=== PATIENT | male | born 1965 | race American Indian/Alaskan Native ===

== ENCOUNTER 2017-06-08 13:48 | Inpatient (IN) | payer OTHER ==
[2017-06-08] MEDS ORDERED: Sodium Chloride 0.9% 1,000 ML IV ONE ×4 (14:11→17:09)
[2017-06-08] MEDS ORDERED: Magnesium Sulfate/Water 2 GM in Premix Bag 1 BAG IV ONE ×2 (14:23→18:02)
[2017-06-08] MEDS ORDERED: Calcium Gluconate 10% 1 GM/10 ML SDV IVPUSH ONE (15:18)
[2017-06-08] MEDS ORDERED: Potassium Chloride 10% 20 MEQ/15 ML Soln 30 ML UD Cup PO ONE (16:25)
--- NOTE | 2017-06-08 16:28 | EDM.PDOC ---
ED HPI GENERAL MEDICAL PROBLEM - General Chief Complaint: Neurological Problem Stated Complaint: [facility] Time Seen by Provider: 06/08/17 14:01 Source of Information: Reports: Patient History Limitations: Reports: Intoxication - History of Present Illness INITIAL COMMENTS - FREE TEXT/NARRATIVE: The patient is a 51-year-old male with a history of alcoholism who comes in after an episode of syncope at home. According to patient's family, the patient was in bed. It appears that he try to get out of bed but passed out. Patient's family thought that he had hit his head on a bedroom wall when he try to get up to go to the bathroom. They state that he passed out for several seconds maybe even a couple of minutes before coming to. He was breathing throughout. They describe color change. He started to look dusky and blue. He seemed stiff but did not have any shaking. EMS was called and they transported the patient here. The patient does not recall the event. He denies feeling ill. States that he does not have a headache. Denies recent illness. States that he did drink several beers this morning that he has been drinking lately. He isn't really able to provide any further history. His family doesn't seem to be aware of him being ill recently either but it is not clear whether they've been with him much these last few days. Treatments RUNNER ON: Reports: Oxygen Headache Pain Score (Numeric/FACES): 7 - Related Data Allergies Allergy/AdvReac Type Severity Reaction Status Date / Time No Known Allergies Allergy Verified 06/08/17 13:56 Home Meds: Home Meds Aspirin [Ecotrin] 81 mg PO DAILY 06/08/17 [History] Past Medical History HEENT History: Reports: Other (See Below) Other HEENT History: blurry vision for past couple months Cardiovascular History: Reports: Hypertension Gastrointestinal History: Reports: GI Bleed Genitourinary History: Reports: Acute Renal Failure Musculoskeletal History: Reports: Arthritis, Gout Other Musculoskeletal History: "joint problems" Neurological History: Reports: Head Trauma Psychiatric History: Reports: Addiction Hematologic History: Reports: Anemia - Past Surgical History Musculoskeletal Surgical History: Reports: None Social & Family History - Family History Family Medical History: Noncontributory Other Dermatologic Family History: pt slightly confused, not sure of family hx - Tobacco Use Smoking Status *Q: Current Every Day Smoker Years of Tobacco use: 30 Packs/Tins Daily: 0.4 Second Hand Smoke Exposure: No - Alcohol Use Days Per Week of Alcohol Use: 1 Number of Drinks Per Day: 8 Total Drinks Per Week: 8 - Recreational Drug Use Recreational Drug Use: No Drug Use in Last 12 Months: Yes Recreational Drug Type: Reports: Benzodiazepines, Marijuana/Hashish, Other (see below) ED ROS GENERAL - Review of Systems Review Of Systems: See Below Constitutional: Reports: Malaise, Weakness, Fatigue HEENT: Reports: No Symptoms Respiratory: Reports: No Symptoms Cardiovascular: Reports: No Symptoms Endocrine: Reports: Fatigue GI/Abdominal: Reports: Diarrhea : Reports: No Symptoms Musculoskeletal: Reports: No Symptoms Skin: Reports: No Symptoms Neurological: Reports: No Symptoms Psychiatric: Reports: No Symptoms Hematologic/Lymphatic: Reports: No Symptoms Immunologic: Reports: No Symptoms - Physical Exam Exam: See Below Exam Limited By: No Limitations General Appearance: Alert, WD/WN, No Apparent Distress Eye Exam: Bilateral Eye: EOMI, PERRL Ears: Normal External Exam Nose: Normal Inspection Throat/Mouth: Normal Inspection, Normal Voice Head Exam: Atraumatic, Normocephalic Neck: Normal Inspection, Supple, Non-Tender, Full Range of Motion Respiratory/Chest: No Respiratory Distress, Lungs Clear, Normal Breath Sounds Cardiovascular: Regular Rate, Rhythm, No Edema, Tachycardia GI/Abdominal: Soft, Non-Tender, No Distention Neuro Exam (Abbreviated): Alert, Oriented, No Motor/Sensory Deficits Back Exam: Normal Inspection Extremities: Other (LLE is mildly enlarged compared to RLE, mild pretibial erythema, no warmth or tenderness) Psychiatric: Normal Affect, Normal Mood Skin Exam: Warm, Dry, Intact, Normal Color Course - Vital Signs Last Recorded V/S: Last Vital Signs Temp 35.7 C 06/08/17 13:57 Pulse 130 H 06/08/17 13:57 Resp 17 06/08/17 13:57 BP 100/78 06/08/17 13:57 Pulse Ox 98 06/08/17 13:57 - Orders/Labs/Meds Orders: Active Orders 24 hr Category Date Time Status EKG 12 Lead [EKG Documentation Completion] [RC] STAT Care 06/08/17 14:11 Active Chest 1V Frontal [CR] Stat Exams 06/08/17 14:11 Taken Head wo Cont [CT] Stat Exams 06/08/17 14:11 Taken VL Duplex Lwr Ext Veins Ltd Lt [US] Stat Exams 06/08/17 14:19 Taken C DIFFICILE BY PCR W/NAP1 [MOLEC] Stat Lab 06/08/17 16:09 Received CULTURE STOOL + SHIGATOX [RM] Stat Lab 06/08/17 16:09 Received Potassium Chloride [KCl 10 MEQ in Water 100 ML] 10 meq Med 06/08/17 15:15 Active Premix Bag 1 bag IV Q1H Sodium Chloride 0.9% [Normal Saline] 1,000 ml Med 06/08/17 17:09 Active IV ONETIME Medication Orders Potassium Chloride 10 meq/ (Premix) 100 mls @ 100 mls/hr IV Q1H MARLENI Stop: 06/08/17 19:14 Last Admin: 06/08/17 16:34 Dose: 100 mls/hr Sodium Chloride (Normal Saline) 1,000 mls @ 1,000 mls/hr IV ONETIME ONE Stop: 06/08/17 18:08 Last Admin: 06/08/17 17:12 Dose: 1,000 mls/hr Labs: Laboratory Tests 06/08/17 06/08/17 06/08/17 Range/Units 14:00 14:00 14:00 WBC 9.64 H (4.23-9.07) K/mm3 RBC 3.03 L (4.63-6.08) M/mm3 Hgb 10.7 L (13.7-17.5) gm/L Hct 30.0 L (40.1-51.0) % MCV 99.0 H (79.0-92.2) fl MCH 35.3 H (25.7-32.2) pg MCHC 35.7 H (32.2-35.5) g/dl RDW Std Deviation 49.6 H (35.1-43.9) fL Plt Count 220 (163-337) K/mm3 MPV 11.1 (9.4-12.3) fl Neut % (Auto) 77.6 H (34.0-67.9) % Lymph % (Auto) 12.0 L (21.8-53.1) % [place] % (Auto) 9.1 (5.3-12.2) % Eos % (Auto) 0.3 L (0.8-7.0) Baso % (Auto) 0.4 (0.1-1.2) % Neut # (Auto) 7.47 H (1.78-5.38) K/mm3 Lymph # (Auto) 1.16 L (1.32-3.57) K/mm3 [place] # (Auto) 0.88 H (0.30-0.82) K/mm3 Eos # (Auto) 0.03 L (0.04-0.54) K/mm3 Baso # (Auto) 0.04 (0.01-0.08) K/mm3 PT 13.3 H (8.0-13.0) SECONDS INR 1.21 Sodium 129 L (136-145) mEq/L Potassium 2.2 L* (3.5-5.1) mEq/L Chloride 89 L (98-107) mEq/L Carbon Dioxide 23 (21-32) mEq/L Anion Gap 19.2 H (5-15) BUN 12 (7-18) mg/dL Creatinine 1.3 (0.7-1.3) mg/dL Est Cr Clr Drug Dosing 63.97 mL/min Estimated GFR (MDRD) 58 (>60) mL/min BUN/Creatinine Ratio 9.2 L (14-18) Glucose 154 H (74-106) mg/dL Calcium 6.2 L (8.5-10.1) mg/dL Magnesium 0.5 L (1.8-2.4) mg/dl Total Bilirubin 2.2 H (0.2-1.0) mg/dL AST 56 H (15-37) U/L ALT 20 (16-63) U/L Alkaline Phosphatase 219 H (46-116) U/L Troponin I < 0.017 (0.00-0.056) ng/mL Total Protein 6.8 (6.4-8.2) g/dl Albumin 1.9 L (3.4-5.0) g/dl Globulin 4.9 gm/dL Albumin/Globulin Ratio 0.4 L (1-2) Lipase 373 (73-393) U/L Urine Color (Yellow) Urine Appearance (Clear) Urine pH (5.0-8.0) Ur Specific [place] (1.005-1.030) Urine Protein (Negative) Urine Glucose (UA) (Negative) Urine Ketones (Negative) Urine Occult Blood (Negative) Urine Nitrite (Negative) Urine Bilirubin (Negative) Urine Urobilinogen (0.2-1.0) Ur Leukocyte Esterase (Negative) Urine RBC (0-5) /hpf Urine WBC (0-5) /hpf Ur Epithelial Cells (0-5) /hpf Urine Bacteria (FEW) /hpf Urine Mucus (FEW) /hpf Urine Opiates Screen (NEGATIVE) Ur Buprenorphine Scrn (NEGATIVE) Ur Oxycodone Screen (NEGATIVE) Urine Methadone Screen (NEGATIVE) Ur Propoxyphene Screen (NEGATIVE) Ur Barbiturates Screen (NEGATIVE) Ur Tricyclics Screen (NEGATIVE) Ur Phencyclidine Scrn (NEGATIVE) Ur Amphetamine Screen (NEGATIVE) U Methamphetamines Scrn (NEGATIVE) U Benzodiazepines Scrn (NEGATIVE) U Cocaine Metab Screen (NEGATIVE) U Marijuana (THC) Screen (NEGATIVE) Ethyl Alcohol 0.17 (0.00) gm% Blood Type Gel Antibody Screen 06/08/17 06/08/17 06/08/17 Range/Units 14:00 15:32 16:28 WBC (4.23-9.07) K/mm3 RBC (4.63-6.08) M/mm3 Hgb (13.7-17.5) gm/L Hct (40.1-51.0) % MCV (79.0-92.2) fl MCH (25.7-32.2) pg MCHC (32.2-35.5) g/dl RDW Std Deviation (35.1-43.9) fL Plt Count (163-337) K/mm3 MPV (9.4-12.3) fl Neut % (Auto) (34.0-67.9) % Lymph % (Auto) (21.8-53.1) % [place] % (Auto) (5.3-12.2) % Eos % (Auto) (0.8-7.0) Baso % (Auto) (0.1-1.2) % Neut # (Auto) (1.78-5.38) K/mm3 Lymph # (Auto) (1.32-3.57) K/mm3 [place] # (Auto) (0.30-0.82) K/mm3 Eos # (Auto) (0.04-0.54) K/mm3 Baso # (Auto) (0.01-0.08) K/mm3 PT (8.0-13.0) SECONDS INR Sodium 129 L (136-145) mEq/L Potassium 2.6 L (3.5-5.1) mEq/L Chloride 91 L (98-107) mEq/L Carbon Dioxide 24 (21-32) mEq/L Anion Gap 16.6 H (5-15) BUN 12 (7-18) mg/dL Creatinine 1.2 (0.7-1.3) mg/dL Est Cr Clr Drug Dosing 69.30 mL/min Estimated GFR (MDRD) > 60 (>60) mL/min BUN/Creatinine Ratio 10.0 L (14-18) Glucose 142 H (74-106) mg/dL Calcium 6.1 L (8.5-10.1) mg/dL Magnesium 0.7 L (1.8-2.4) mg/dl Total Bilirubin 2.0 H (0.2-1.0) mg/dL AST 52 H (15-37) U/L ALT 19 (16-63) U/L Alkaline Phosphatase 201 H (46-116) U/L Troponin I (0.00-0.056) ng/mL Total Protein 6.3 L (6.4-8.2) g/dl Albumin 1.7 L (3.4-5.0) g/dl Globulin 4.6 gm/dL Albumin/Globulin Ratio 0.4 L (1-2) Lipase (73-393) U/L Urine Color [place] H (Yellow) Urine Appearance Clear (Clear) Urine pH 6.0 (5.0-8.0) Ur Specific [place] 1.010 (1.005-1.030) Urine Protein 1+ H (Negative) Urine Glucose (UA) Negative (Negative) Urine Ketones Negative (Negative) Urine Occult Blood Negative (Negative) Urine Nitrite Positive H (Negative) Urine Bilirubin 2+ H (Negative) Urine Urobilinogen >=8.0 H (0.2-1.0) Ur Leukocyte Esterase Negative (Negative) Urine RBC Not seen (0-5) /hpf Urine WBC 0-5 (0-5) /hpf Ur Epithelial Cells 0-5 (0-5) /hpf Urine Bacteria Rare (FEW) /hpf Urine Mucus Not seen (FEW) /hpf Urine Opiates Screen (NEGATIVE) Ur Buprenorphine Scrn (NEGATIVE) Ur Oxycodone Screen (NEGATIVE) Urine Methadone Screen (NEGATIVE) Ur Propoxyphene Screen (NEGATIVE) Ur Barbiturates Screen (NEGATIVE) Ur Tricyclics Screen (NEGATIVE) Ur Phencyclidine Scrn (NEGATIVE) Ur Amphetamine Screen (NEGATIVE) U Methamphetamines Scrn (NEGATIVE) U Benzodiazepines Scrn (NEGATIVE) U Cocaine Metab Screen (NEGATIVE) U Marijuana (THC) Screen (NEGATIVE) Ethyl Alcohol (0.00) gm% Blood Type O POSITIVE Gel Antibody Screen Negative 06/08/17 Range/Units 16:28 WBC (4.23-9.07) K/mm3 RBC (4.63-6.08) M/mm3 Hgb (13.7-17.5) gm/L Hct (40.1-51.0) % MCV (79.0-92.2) fl MCH (25.7-32.2) pg MCHC (32.2-35.5) g/dl RDW Std Deviation (35.1-43.9) fL Plt Count (163-337) K/mm3 MPV (9.4-12.3) fl Neut % (Auto) (34.0-67.9) % Lymph % (Auto) (21.8-53.1) % [place] % (Auto) (5.3-12.2) % Eos % (Auto) (0.8-7.0) Baso % (Auto) (0.1-1.2) % Neut # (Auto) (1.78-5.38) K/mm3 Lymph # (Auto) (1.32-3.57) K/mm3 [place] # (Auto) (0.30-0.82) K/mm3 Eos # (Auto) (0.04-0.54) K/mm3 Baso # (Auto) (0.01-0.08) K/mm3 PT (8.0-13.0) SECONDS INR Sodium (136-145) mEq/L Potassium (3.5-5.1) mEq/L Chloride (98-107) mEq/L Carbon Dioxide (21-32) mEq/L Anion Gap (5-15) BUN (7-18) mg/dL Creatinine (0.7-1.3) mg/dL Est Cr Clr Drug Dosing mL/min Estimated GFR (MDRD) (>60) mL/min BUN/Creatinine Ratio (14-18) Glucose (74-106) mg/dL Calcium (8.5-10.1) mg/dL Magnesium (1.8-2.4) mg/dl Total Bilirubin (0.2-1.0) mg/dL AST (15-37) U/L ALT (16-63) U/L Alkaline Phosphatase (46-116) U/L Troponin I (0.00-0.056) ng/mL Total Protein (6.4-8.2) g/dl Albumin (3.4-5.0) g/dl Globulin gm/dL Albumin/Globulin Ratio (1-2) Lipase (73-393) U/L Urine Color (Yellow) Urine Appearance (Clear) Urine pH (5.0-8.0) Ur Specific [place] (1.005-1.030) Urine Protein (Negative) Urine Glucose (UA) (Negative) Urine Ketones (Negative) Urine Occult Blood (Negative) Urine Nitrite (Negative) Urine Bilirubin (Negative) Urine Urobilinogen (0.2-1.0) Ur Leukocyte Esterase (Negative) Urine RBC (0-5) /hpf Urine WBC (0-5) /hpf Ur Epithelial Cells (0-5) /hpf Urine Bacteria (FEW) /hpf Urine Mucus (FEW) /hpf Urine Opiates Screen Negative (NEGATIVE) Ur Buprenorphine Scrn Negative (NEGATIVE) Ur Oxycodone Screen Negative (NEGATIVE) Urine Methadone Screen Negative (NEGATIVE) Ur Propoxyphene Screen Negative (NEGATIVE) Ur Barbiturates Screen Negative (NEGATIVE) Ur Tricyclics Screen Negative (NEGATIVE) Ur Phencyclidine Scrn Negative (NEGATIVE) Ur Amphetamine Screen Negative (NEGATIVE) U Methamphetamines Scrn Negative (NEGATIVE) U Benzodiazepines Scrn Negative (NEGATIVE) U Cocaine Metab Screen Negative (NEGATIVE) U Marijuana (THC) Screen Presumptive positive H (NEGATIVE) Ethyl Alcohol (0.00) gm% Blood Type Gel Antibody Screen Meds: Medications Generic Name Dose Route Start Last Admin Trade Name Freq PRN Reason Stop Dose Admin Potassium Chloride 10 meq/ 100 mls @ 100 mls/hr 06/08/17 15:15 06/08/17 16:34 Premix IV 06/08/17 19:14 100 mls/hr Q1H MARLENI Administration Sodium Chloride 1,000 mls @ 1,000 mls/hr 06/08/17 17:09 06/08/17 17:12 Normal Saline IV 06/08/17 18:08 1,000 mls/hr ONETIME ONE Administration Discontinued Medications Generic Name Dose Route Start Last Admin Trade Name Kourtney PRN Reason Stop Dose Admin Calcium Gluconate 1 gm 06/08/17 15:18 06/08/17 15:35 Calcium Gluconate IVPUSH 06/08/17 15:19 1 gm ONETIME ONE Administration Sodium Chloride 1,000 mls @ 1,000 mls/hr 06/08/17 14:11 06/08/17 14:23 Normal Saline IV 06/08/17 15:10 1,000 mls/hr ONETIME ONE Administration Magnesium Sulfate 2 gm/ Premix 50 mls @ 25 mls/hr 06/08/17 14:23 06/08/17 14: 44 IV 06/08/17 16:22 25 mls/hr ONETIME ONE Administration Sodium Chloride 1,000 mls @ 1,000 mls/hr 06/08/17 15:52 06/08/17 16:17 Normal Saline IV 06/08/17 16:51 1,000 mls/hr ONETIME ONE Administration Sodium Chloride 1,000 mls @ 1,000 mls/hr 06/08/17 16:27 06/08/17 16:50 Normal Saline IV 06/08/17 17:26 1,000 mls/hr ONETIME ONE Administration Potassium Chloride 40 meq 06/08/17 16:25 06/08/17 17:05 Potassium Chloride PO 06/08/17 16:26 Not Given ONETIME ONE Potassium Chloride 40 meq 06/08/17 16:55 06/08/17 17:01 Klor-Con M20 PO 06/08/17 16:56 40 meq ONETIME ONE Administration - Re-Assessments/Exams Free Text/Narrative Re-Assessment/Exam: 06/08/17 16:59 CT head shows no acute abnormality. EKG shows sinus tachycardia with a prolonged QTc interval at 550. No evidence of acute ischemia. Chest x-ray shows normal cardiac silhouette, mildly elevated left hemidiaphragm, no infiltrate. Patient is markedly tachycardic. His blood pressure is also on the low side with systolics mostly in the 90s. He is also orthostatic and gets very tachycardic when he sits up. Fluids ordered. Lab results showed an initial potassium of 2.2 and magnesium 0.5. Magnesium and potassium ordered but also sent new sample to lab to confirm these electrolyte abnormalities. Repeat testing did confirm these abnormalities. Meanwhile, nursing staff informed me that the patient was having a large amount of diarrhea. Diarrhea is guaiac negative. I suspect this is the source of his orthostatic hypotension and tachycardia and electrolyte abnormalities. No fever here. Lower extremity venous doppler of the LLE is negative for DVT. Discussed with Dr. Bustamante who agrees to admit the patient for further care. 06/08/17 17:01 06/08/17 17:37 Departure - Departure Time of Disposition: 16:37 Disposition: Admitted As Inpatient 65 Clinical Impression: Hypokalemia due to loss of potassium, Hypomagnesemia, Substance abuse, Syncope and collapse, Dehydration, moderate Diarrhea Qualifiers: Diarrhea type: unspecified type Qualified Code(s): R19.7 - Diarrhea, unspecified Hypotension Qualifiers: Hypotension type: unspecified hypotension type Qualified Code(s): I95.9 - Hypotension, unspecified Alcohol intoxication Qualifiers: Complication of substance-induced condition: uncomplicated Qualified Code(s): F10.920 - Alcohol use, unspecified with intoxication, uncomplicated Altered mental status Qualifiers: Altered mental status type: disorientation Qualified Code(s): R41.0 - Disorientation, unspecified - Discharge Information - My Orders Last 24 Hours: My Active Orders 06/08/17 14:11 EKG 12 Lead [EKG Documentation Completion] [RC] STAT Chest 1V Frontal [CR] Stat Head wo Cont [CT] Stat 06/08/17 14:19 VL Duplex Lwr Ext Veins Ltd Lt [US] Stat 06/08/17 15:15 Potassium Chloride [KCl 10 MEQ in Water 100 ML] 10 meq Premix Bag 1 bag IV Q1H 06/08/17 16:09 C DIFFICILE BY PCR W/NAP1 [MOLEC] Stat CULTURE STOOL + SHIGATOX [RM] Stat 06/08/17 17:09 Sodium Chloride 0.9% [Normal Saline] 1,000 ml IV ONETIME - Assessment/Plan Last 24 Hours: My Active Orders 06/08/17 14:11 EKG 12 Lead [EKG Documentation Completion] [RC] STAT Chest 1V Frontal [CR] Stat Head wo Cont [CT] Stat 06/08/17 14:19 VL Duplex Lwr Ext Veins Ltd Lt [US] Stat 06/08/17 15:15 Potassium Chloride [KCl 10 MEQ in Water 100 ML] 10 meq Premix Bag 1 bag IV Q1H 06/08/17 16:09 C DIFFICILE BY PCR W/NAP1 [MOLEC] Stat CULTURE STOOL + SHIGATOX [] Stat 06/08/17 17:09 Sodium Chloride 0.9% [Normal Saline] 1,000 ml IV ONETIME
[2017-06-08] MEDS: Potassium Chloride 10 MEQ in Premix Bag 1 BAG IV SCH ×4 (16:34→19:56)
[2017-06-08] MEDS ORDERED: Potassium Chloride 20 MEQ Tab.ER PO ONE (16:55)
[2017-06-08] MEDS ORDERED: LORazepam 2 MG/ML MDV IVPUSH PRN (18:06)
[2017-06-08] MEDS ORDERED: Haloperidol Lactate 5 MG/ML SDV IVPUSH PRN (18:14)
--- NOTE | 2017-06-08 18:17 | PCM.HP ---
H&P History of Present Illness - General Date of Service: 06/08/17 Admit Problem/Dx: Admission Diagnosis/Problem Admission Diagnosis/Problem Hypotension Source of Information: Provider History Limitations: Reports: No Limitations - History of Present Illness Initial Comments - Free Text/Narative: 51 year old male unable to provide history; the ED physician interviewed family members for the history as documented. He reportedly "passed out", has had decrease appetite. May or may not have been exposed to sick contacts. He was reportedly out of it for a few seconds without urine or stool incontinence. His color was reportedly blue. He was rigid without extremity movements. Has no know history of seizure disorder including ETOH related seizures. Ontiveros s electrolyte abnormalities (k, 2.2; Na, 122) and ETOH 0.17. There has been no SOB, CP, orthopnea, PND, palpitations; however he has had loose stool without change in color. Onset of Symptoms: Reports: Sudden Symptom Onset Date: 06/08/17 Duration of Symptoms: Reports: Hour(s):, Getting Worse Location: Reports: Generalized Severity: Moderate Improves with: Reports: Medication Worsens with: Reports: None Associated Symptoms: Reports: Loss of Appetite, Weakness Headache Pain Score (Numeric/FACES): 7 - Related Data Allergies/Adverse Reactions: Allergies Allergy/AdvReac Type Severity Reaction Status Date / Time No Known Allergies Allergy Verified 06/08/17 13:56 Home Medications: Home Meds Aspirin [Ecotrin] 81 mg PO DAILY 06/08/17 [History] Past Medical History HEENT History: Reports: Other (See Below) Other HEENT History: blurry vision for past couple months Cardiovascular History: Reports: Hypertension Gastrointestinal History: Reports: GI Bleed Genitourinary History: Reports: Acute Renal Failure Musculoskeletal History: Reports: Arthritis, Gout Other Musculoskeletal History: "joint problems" Neurological History: Reports: Head Trauma Psychiatric History: Reports: Addiction Hematologic History: Reports: Anemia - Past Surgical History Musculoskeletal Surgical History: Reports: None Social & Family History - Family History Family Medical History: Noncontributory Other Dermatologic Family History: pt slightly confused, not sure of family hx - Tobacco Use Smoking Status *Q: Current Every Day Smoker Years of Tobacco use: 30 Packs/Tins Daily: 0.4 Second Hand Smoke Exposure: No - Alcohol Use Days Per Week of Alcohol Use: 1 Number of Drinks Per Day: 8 Total Drinks Per Week: 8 - Recreational Drug Use Recreational Drug Use: No Drug Use in Last 12 Months: Yes Recreational Drug Type: Reports: Benzodiazepines, Marijuana/Hashish, Other (see below) H&P Review of Systems - Review of Systems: Review Of Systems: See Below General: Reports: Weakness, Fatigue HEENT: Reports: No Symptoms Pulmonary: Reports: No Symptoms Cardiovascular: Reports: Palpitations, Lightheadedness Gastrointestinal: Reports: Decreased Appetite Genitourinary: Reports: No Symptoms Musculoskeletal: Reports: No Symptoms Skin: Reports: No Symptoms Psychiatric: Reports: No Symptoms Neurological: Reports: Weakness Hematologic/Lymphatic: Reports: No Symptoms Immunologic: Reports: No Symptoms Exam - Exam Exam: See Below - Vital Signs Vital Signs: Last Vital Signs Temp 36.8 C 06/08/17 17:47 Pulse 130 H 06/08/17 13:57 Resp 18 06/08/17 17:47 BP 105/85 06/08/17 17:47 Pulse Ox 97 06/08/17 17:47 Weight: 77.655 kg - Exam Quality Assessment: Supplemental Oxygen, Urinary Catheter, DVT Prophylaxis General: Lethargic HEENT: Conjunctiva Clear, Nares Patent, Normal Nasal Septum, Pupils Equal, Pupils Reactive Neck: Supple, Trachea Midline Lungs: Normal Respiratory Effort, Decreased Breath Sounds Cardiovascular: Regular Rate, Tachycardia GI/Abdominal Exam: Normal Bowel Sounds, Soft, Non-Tender, No Organomegaly, No Distention (Male) Exam: Deferred Rectal (Males) Exam: Deferred Back Exam: Normal Inspection Extremities: Normal Inspection Skin: Warm Neurological: Cranial Nerves Intact Neuro Extensive - Mental Status: Inattentive Neuro Extensive - Motor, Sensory, Reflexes: CN II-XII Intact Psychiatric: Other (lethargic) - Patient Data Result Diagrams: 06/09/17 11:04 06/09/17 06:41 *Q Meaningful Use (ADM) - VTE *Q VTE Criteria *Q: - Stroke *Q Stroke Criteria *Q: - AMI *Q AMI Criteria *Q: - Problem List (1) Alcohol intoxication SNOMED Code(s): 84614142 ICD Code: F10.929 - ALCOHOL USE, UNSPECIFIED WITH INTOXICATION, UNSPECIFIED Status: Acute Current Visit: Yes Qualifiers: Complication of substance-induced condition: uncomplicated Qualified Code(s ): F10.920 - Alcohol use, unspecified with intoxication, uncomplicated (2) Altered mental status SNOMED Code(s): 001795649 ICD Code: R41.82 - ALTERED MENTAL STATUS, UNSPECIFIED Status: Acute Current Visit: Yes Qualifiers: Altered mental status type: disorientation Qualified Code(s): R41.0 - Disorientation, unspecified (3) Dehydration, moderate SNOMED Code(s): 9351838736977 ICD Code: E86.0 - DEHYDRATION Status: Acute Current Visit: Yes (4) Diarrhea SNOMED Code(s): 71291274 ICD Code: R19.7 - DIARRHEA, UNSPECIFIED Status: Acute Current Visit: Yes Qualifiers: Diarrhea type: unspecified type Qualified Code(s): R19.7 - Diarrhea, unspecified (5) Hypokalemia due to loss of potassium SNOMED Code(s): 95949345 ICD Code: E87.6 - HYPOKALEMIA Status: Acute Current Visit: Yes (6) Hypotension SNOMED Code(s): 45914638 ICD Code: I95.9 - HYPOTENSION, UNSPECIFIED Status: Acute Current Visit: Yes Qualifiers: Hypotension type: unspecified hypotension type Qualified Code(s): I95.9 - Hypotension, unspecified (7) Syncope and collapse SNOMED Code(s): 017439291 ICD Code: R55 - SYNCOPE AND COLLAPSE Status: Acute Current Visit: Yes Problem List Initiated/Reviewed/Updated: Yes Orders Last 24hrs: Active Orders 24 hr Category Date Time Status Patient Status [ADT] Routine ADT 06/08/17 17:49 Active Aspiration Precautions [RC] ASDIRECTED Care 06/08/17 17:46 Ordered Bedrest Bathroom Privileges [RC] ASDIRECTED Care 06/08/17 17:42 Ordered CIWAA Assessment [RC] Q4H Care 06/08/17 18:05 Ordered HOB [Head of Bed Elevation] [RC] ASDIRECTED Care 06/08/17 17:46 Ordered Vital Signs [RC] PER UNIT ROUTINE Care 06/08/17 17:42 Ordered Consult to Occupational Therapy [OT Evaluation and Cons 06/10/17 11:00 Ordered Treatment] [CONS] Routine Consult to Physical Therapy [PT Evaluation and Cons 06/10/17 11:00 Ordered Treatment] [CONS] Routine Consult to Certified Alcohol And Drug Counselor [CONS] Routine Cons 06/10/17 09:00 Ordered NPO [Nothing Per Oral Diet] [DIET] Diet 06/09/17 Breakfast Ordered CXR [Chest 2V] [CR] Routine Exams 06/10/17 06:00 Ordered BASIC METABOLIC PANEL,BMP [CHEM] DAILY Lab 06/09/17 05:00 Ordered BASIC METABOLIC PANEL,BMP [CHEM] DAILY Lab 06/10/17 05:00 Ordered BASIC METABOLIC PANEL,BMP [CHEM] DAILY Lab 06/11/17 05:00 Ordered BASIC METABOLIC PANEL,BMP [CHEM] DAILY Lab 06/12/17 05:00 Ordered BASIC METABOLIC PANEL,BMP [CHEM] DAILY Lab 06/13/17 05:00 Ordered BASIC METABOLIC PANEL,BMP [CHEM] DAILY Lab 06/14/17 05:00 Ordered CBC WITH AUTO DIFF [HEME] DAILY Lab 06/09/17 05:00 Ordered CBC WITH AUTO DIFF [HEME] DAILY Lab 06/10/17 05:00 Ordered CBC WITH AUTO DIFF [HEME] DAILY Lab 06/11/17 05:00 Ordered CBC WITH AUTO DIFF [HEME] DAILY Lab 06/12/17 05:00 Ordered CBC WITH AUTO DIFF [HEME] DAILY Lab 06/13/17 05:00 Ordered CBC WITH AUTO DIFF [HEME] DAILY Lab 06/14/17 05:00 Ordered ETHANOL BLOOD MEDICAL [CHEM] Routine Lab 06/09/17 05:00 Ordered FOLIC ACID [CHEM] Routine Lab 06/09/17 05:00 Ordered GLYCOSYLATED HEMOGLOBIN,HGBA1C [CHEM] Routine Lab 06/09/17 05:00 Ordered MAGNESIUM [CHEM] DAILY Lab 06/09/17 05:00 Ordered MAGNESIUM [CHEM] DAILY Lab 06/10/17 05:00 Ordered MAGNESIUM [CHEM] DAILY Lab 06/11/17 05:00 Ordered MAGNESIUM [CHEM] DAILY Lab 06/12/17 05:00 Ordered MAGNESIUM [CHEM] DAILY Lab 06/13/17 05:00 Ordered MAGNESIUM [CHEM] DAILY Lab 06/14/17 05:00 Ordered TROPONIN I [CHEM] Routine Lab 06/09/17 05:00 Ordered TSH [CHEM] Routine Lab 06/09/17 05:00 Ordered VITAMIN B12 [CHEM] Routine Lab 06/09/17 05:00 Ordered VITAMIN D 25-HYROXY (D2, D3) [REF] Routine Lab 06/09/17 05:00 Ordered Folic Acid Med 06/09/17 09:00 Ordered 1 mg PO DAILY Haloperidol Lactate [Haldol] Med 11/18/17 18:14 Ordered 1 mg IVPUSH Q8H PRN LORazepam [Ativan] Med 06/08/17 18:06 Ordered 1 mg IVPUSH Q6H PRN Magnesium Sulfate/Water [Magnesium Sulfate 2 GM in Med 06/08/17 18:02 Ordered Water 50 ML] 2 gm Premix Bag 1 bag IV ONETIME Pantoprazole [ProTONIX IV] Med 06/08/17 18:15 Ordered 40 mg IVPUSH Q12H Sodium Chloride 0.9% with KCl 20 mEq @ 150 mL/Hr (1000 Med 06/08/17 18:15 Ordered mL) NS + KCl 20mEq/L [Normal Saline with 20 mEq KCl] 1,000 ml IV ASDIRECTED Thiamine [Vitamin B-1] Med 06/09/17 09:00 Ordered 1 mg IV DAILY Seizure Precautions [OM.PC] Routine Oth 06/08/17 17:46 Ordered Code Status [Resuscitation Status] Routine Resus Stat 06/08/17 17:47 Ordered Medication Orders Folic Acid (Folic Acid) 1 mg PO DAILY [facility] Haloperidol Lactate (Haldol) 1 mg IVPUSH Q8H PRN PRN Reason: restlessness Potassium Chloride 10 meq/ (Premix) 100 mls @ 100 mls/hr IV Q1H [facility] Stop: 06/08/17 19:14 Last Admin: 06/08/17 17:46 Dose: 100 mls/hr Infusion: 06/08/17 17:34 Dose: 100 mls/hr Admin: 06/08/17 16:34 Dose: 100 mls/hr Magnesium Sulfate 2 gm/ Premix 50 mls @ 25 mls/hr IV ONETIME ONE Stop: 06/08/17 20:01 Potassium Chloride/Sodium Chloride (Normal Saline With 20 Meq Kcl) 1,000 mls @ 150 mls/hr IV ASDIRECTED [facility] Lorazepam (Ativan) 1 mg IVPUSH Q6H PRN PRN Reason: Anxiety Pantoprazole Sodium (Protonix Iv) 40 mg IVPUSH Q12H [facility] Thiamine HCl (Vitamin B-1) 1 mg IV DAILY [facility] Assessment/Plan Comment:: Impression: Presyncope, unspecified Anemia ETOH abuse/dependence Dehydration Electrolyte abnormalities Query sick contacts Chronic CKD Hx of GI bleed HTN Substance abuse; UDS negative with presumptive positive marijuana Plan: Check ionized Ca IVF, 0.9NS with KCl Emprirc IV ATB for soft positive UA Correct electrolyte Infectious eval ETOH/CIWA protocol NPO except ice chips and meds Asp precautions/SZ precautions DVT/GI prophylaxis
[2017-06-08] MEDS: NS + KCl 20mEq/L 1,000 ML IV SCH (18:28)
[2017-06-08] MEDS ORDERED: cefTRIAXone 1 GM in Sodium Chloride 0.9% 100 ML IV SCH (18:30)
[2017-06-08] MEDS: Pantoprazole 40 MG Vial IVPUSH SCH (18:33)
[2017-06-09] MEDS: NS + KCl 20mEq/L 1,000 ML IV SCH ×2 (01:27→10:30)
[2017-06-09] MEDS: Pantoprazole 40 MG Vial IVPUSH SCH ×2 (06:32→18:28)
[2017-06-09] MEDS: Folic Acid 1 MG Tab PO SCH (08:23)
[2017-06-09] MEDS: Thiamine 200 MG/2 ML MDV IV SCH (08:23)
[2017-06-09] MEDS ORDERED: Thiamine 200 MG/2 ML MDV IV SCH (09:00)
[2017-06-09] MEDS ORDERED: Enoxaparin 40 MG/0.4 ML Syringe SUBCUT SCH (09:00)
[2017-06-09] MEDS ORDERED: Magnesium Sulfate/Water 4 GM in Premix Bag 1 BAG IV ONE (09:24)
[2017-06-09] MEDS ORDERED: Furosemide 20 MG/2 ML VIAL IVPUSH ONE ×2 (11:52→14:00)
[2017-06-09] MEDS ORDERED: Sodium Chloride 0.9% 1,000 ML IV SCH (12:00)
[2017-06-09] MEDS: Sodium Chloride 0.9% 100 ML ONE ×2 (12:00→12:42)
[2017-06-09] MEDS ORDERED: Sodium Chloride 0.9% 100 ML IV SCH (12:30)
--- NOTE | 2017-06-09 14:42 | PCM.PN ---
- General Info Date of Service: 06/09/17 Functional Status: Reports: Urinating - Review of Systems General: Reports: Weakness, Fatigue, Malaise HEENT: Reports: No Symptoms Pulmonary: Reports: No Symptoms Cardiovascular: Reports: No Symptoms Gastrointestinal: Reports: No Symptoms Genitourinary: Reports: No Symptoms Musculoskeletal: Reports: No Symptoms Skin: Reports: No Symptoms Neurological: Reports: No Symptoms Psychiatric: Reports: No Symptoms - Patient Data Vitals - Most Recent: Last Vital Signs Temp 36.6 C 06/09/17 14:22 Pulse 100 06/09/17 14:22 Resp 18 06/09/17 14:22 BP 119/87 06/09/17 14:22 Pulse Ox 100 06/09/17 14:22 Weight - Most Recent: 77.655 kg I&O - Last 24 Hours: Intake & Output 06/08/17 06/09/17 06/09/17 22:59 06:59 14:59 Intake Total 3100 200 0 Balance 3100 200 0 Lab Results Last 24 Hours: Laboratory Results - last 24 hr 06/09/17 06/09/17 06/09/17 Range/Units 06:41 06:41 06:41 WBC 14.44 H (4.23-9.07) K/mm3 RBC 2.15 L (4.63-6.08) M/mm3 Hgb 7.4 L (13.7-17.5) gm/L Hct 21.7 L (40.1-51.0) % MCV 100.9 H (79.0-92.2) fl MCH 34.4 H (25.7-32.2) pg MCHC 34.1 (32.2-35.5) g/dl RDW Std Deviation 52.5 H (35.1-43.9) fL Plt Count 179 (163-337) K/mm3 MPV 10.7 (9.4-12.3) fl Neut % (Auto) 73.7 H (34.0-67.9) % Lymph % (Auto) 16.3 L (21.8-53.1) % Toombs % (Auto) 8.9 (5.3-12.2) % Eos % (Auto) 0.4 L (0.8-7.0) Baso % (Auto) 0.2 (0.1-1.2) % Neut # (Auto) 10.65 H (1.78-5.38) K/mm3 Lymph # (Auto) 2.35 (1.32-3.57) K/mm3 Toombs # (Auto) 1.28 H (0.30-0.82) K/mm3 Eos # (Auto) 0.06 (0.04-0.54) K/mm3 Baso # (Auto) 0.03 (0.01-0.08) K/mm3 Manual Slide Review Abnormal smear Sodium 134 L (136-145) mEq/L Potassium 4.2 (3.5-5.1) mEq/L Chloride 102 (98-107) mEq/L Carbon Dioxide 23 (21-32) mEq/L Anion Gap 13.2 (5-15) BUN 12 (7-18) mg/dL Creatinine 1.1 (0.7-1.3) mg/dL Est Cr Clr Drug Dosing 86.22 mL/min Estimated GFR (MDRD) > 60 (>60) mL/min BUN/Creatinine Ratio 10.9 L (14-18) Glucose 128 H (74-106) mg/dL Hemoglobin A1c (4.50-6.20) % Calcium 5.8 L* (8.5-10.1) mg/dL Magnesium 1.2 L (1.8-2.4) mg/dl Ammonia (11-32) umol/L Troponin I < 0.017 (0.00-0.056) ng/mL Vitamin B12 1758 H (193-986) pg/ml Folate 3.3 L (8.6-58.9) ng/mL TSH 3rd Generation 1.854 (0.358-3.74) uIU/mL Ethyl Alcohol 0.00 (0.00) gm% Mycoplasma pneumon IgM Negative (NEGATIVE) 06/09/17 06/09/17 06/09/17 Range/Units 06:41 06:41 11:04 WBC (4.23-9.07) K/mm3 RBC (4.63-6.08) M/mm3 Hgb 7.1 L* (13.7-17.5) gm/L Hct (40.1-51.0) % MCV (79.0-92.2) fl MCH (25.7-32.2) pg MCHC (32.2-35.5) g/dl RDW Std Deviation (35.1-43.9) fL Plt Count (163-337) K/mm3 MPV (9.4-12.3) fl Neut % (Auto) (34.0-67.9) % Lymph % (Auto) (21.8-53.1) % Toombs % (Auto) (5.3-12.2) % Eos % (Auto) (0.8-7.0) Baso % (Auto) (0.1-1.2) % Neut # (Auto) (1.78-5.38) K/mm3 Lymph # (Auto) (1.32-3.57) K/mm3 Toombs # (Auto) (0.30-0.82) K/mm3 Eos # (Auto) (0.04-0.54) K/mm3 Baso # (Auto) (0.01-0.08) K/mm3 Manual Slide Review Sodium (136-145) mEq/L Potassium (3.5-5.1) mEq/L Chloride (98-107) mEq/L Carbon Dioxide (21-32) mEq/L Anion Gap (5-15) BUN (7-18) mg/dL Creatinine (0.7-1.3) mg/dL Est Cr Clr Drug Dosing mL/min Estimated GFR (MDRD) (>60) mL/min BUN/Creatinine Ratio (14-18) Glucose (74-106) mg/dL Hemoglobin A1c 4.70 (4.50-6.20) % Calcium (8.5-10.1) mg/dL Magnesium (1.8-2.4) mg/dl Ammonia 44 H (11-32) umol/L Troponin I (0.00-0.056) ng/mL Vitamin B12 (193-986) pg/ml Folate (8.6-58.9) ng/mL TSH 3rd Generation (0.358-3.74) uIU/mL Ethyl Alcohol (0.00) gm% Mycoplasma pneumon IgM (NEGATIVE) Talib Results Last 24 Hours: Microbiology 06/08/17 19:05 Influenza Type A Antigen Screen - Final Nasopharyngeal Swab - Nare, Left NEGATIVE INFLUENZA A VIRUS AG Influenza Type B Antigen Screen - Final NEGATIVE INFLUENZA B VIRUS AG Med Orders - Current: Current Medications Folic Acid (Folic Acid) 1 mg PO DAILY [facility] Last Admin: 06/09/17 08:23 Dose: 1 mg Haloperidol Lactate (Haldol) 1 mg IVPUSH Q8H PRN PRN Reason: restlessness Potassium Chloride/Sodium Chloride (Normal Saline With 20 Meq Kcl) 1,000 mls @ 150 mls/hr IV ASDIRECTED [facility] Last Admin: 06/09/17 10:30 Dose: 100 mls/hr Ceftriaxone Sodium 1 gm/ (Dextrose/Water) 100 mls @ 200 mls/hr IV Q24H [facility]LEN[facility] Sodium Chloride (Normal Saline) 1,000 mls @ 100 mls/hr IV ASDIRECTED [facility] Lorazepam (Ativan) 1 mg IVPUSH Q6H PRN PRN Reason: Anxiety Pantoprazole Sodium (Protonix Iv) 40 mg IVPUSH Q12H [facility] Last Admin: 06/09/17 06:32 Dose: 40 mg Thiamine HCl (Vitamin B-1) 100 mg IV DAILY [facility] Stop: 06/10/17 09:01 Last Admin: 06/09/17 08:23 Dose: 100 mg Discontinued Medications Calcium Gluconate (Calcium Gluconate) 1 gm IVPUSH ONETIME ONE Stop: 06/08/17 15:19 Last Admin: 06/08/17 15:35 Dose: 1 gm Enoxaparin Sodium (Lovenox) 40 mg SUBCUT DAILY [facility] Last Admin: 06/09/17 11:48 Dose: Not Given Furosemide (Lasix) 20 mg IVPUSH ONETIME ONE Stop: 06/09/17 14:01 Sodium Chloride (Normal Saline) 1,000 mls @ 1,000 mls/hr IV ONETIME ONE Stop: 06/08/17 15:10 Last Admin: 06/08/17 14:23 Dose: 1,000 mls/hr Magnesium Sulfate 2 gm/ Premix 50 mls @ 25 mls/hr IV ONETIME ONE Stop: 06/08/17 16:22 Last Admin: 06/08/17 14:44 Dose: 25 mls/hr Potassium Chloride 10 meq/ (Premix) 100 mls @ 100 mls/hr IV Q1H [facility] Stop: 06/08/17 19:14 Last Admin: 06/08/17 19:56 Dose: 100 mls/hr Sodium Chloride (Normal Saline) 1,000 mls @ 1,000 mls/hr IV ONETIME ONE Stop: 06/08/17 16:51 Last Admin: 06/08/17 16:17 Dose: 1,000 mls/hr Sodium Chloride (Normal Saline) 1,000 mls @ 1,000 mls/hr IV ONETIME ONE Stop: 06/08/17 17:26 Last Admin: 06/08/17 16:50 Dose: 1,000 mls/hr Sodium Chloride (Normal Saline) 1,000 mls @ 1,000 mls/hr IV ONETIME ONE Stop: 06/08/17 18:08 Last Admin: 06/08/17 17:12 Dose: 1,000 mls/hr Magnesium Sulfate 2 gm/ Premix 50 mls @ 25 mls/hr IV ONETIME ONE Stop: 06/08/17 20:01 Last Admin: 06/08/17 18:33 Dose: 25 mls/hr Ceftriaxone Sodium 1 gm/ (Sodium Chloride) 100 mls @ 200 mls/hr IV Q24H [facility] Last Admin: 06/08/17 18:41 Dose: 200 mls/hr Magnesium Sulfate 4 gm/ Premix 100 mls @ 50 mls/hr IV ONETIME ONE Stop: 06/09/17 11:23 Last Admin: 06/09/17 10:01 Dose: 50 mls/hr Sodium Chloride (Normal Saline) 100 mls @ 100 mls/hr IV ASDIRECTED [facility] Sodium Chloride (Normal Saline) Confirm Administered Dose 100 mls @ as directed .ROUTE .STK-MED ONE Stop: 06/09/17 12:34 Last Admin: 06/09/17 12:00 Dose: 100 ml Potassium Chloride (Potassium Chloride) 40 meq PO ONETIME ONE Stop: 06/08/17 16:26 Last Admin: 06/08/17 17:05 Dose: Not Given Potassium Chloride (Klor-Con M20) 40 meq PO ONETIME ONE Stop: 06/08/17 16:56 Last Admin: 06/08/17 17:01 Dose: 40 meq Thiamine HCl (Vitamin B-1) 1 mg IV DAILY [facility] - Exam Quality Assessment: Urine Catheter, DVT Prophylaxis General: Alert, Oriented, Cooperative, No Acute Distress HEENT: Pupils Equal, Pupils Reactive, EOMI Neck: Supple, Trachea Midline, No JVD Lungs: Normal Respiratory Effort Cardiovascular: Regular Rate, Regular Rhythm GI/Abdominal Exam: Normal Bowel Sounds, Soft, Non-Tender, No Organomegaly, No Distention (Male) Exam: Deferred Back Exam: Normal Inspection Extremities: Normal Inspection, No Pedal Edema Skin: Warm Neurological: No New Focal Deficit Psy/Mental Status: Alert, Normal Affect, Normal Mood - Problem List & Annotations (1) Alcohol intoxication SNOMED Code(s): 39999090 Code(s): F10.929 - ALCOHOL USE, UNSPECIFIED WITH INTOXICATION, UNSPECIFIED Status: Acute Current Visit: Yes Qualifiers: Complication of substance-induced condition: uncomplicated Qualified Code(s ): F10.920 - Alcohol use, unspecified with intoxication, uncomplicated (2) Altered mental status SNOMED Code(s): 003591677 Code(s): R41.82 - ALTERED MENTAL STATUS, UNSPECIFIED Status: Acute Current Visit: Yes Qualifiers: Altered mental status type: disorientation Qualified Code(s): R41.0 - Disorientation, unspecified (3) Dehydration, moderate SNOMED Code(s): 6132829515960 Code(s): E86.0 - DEHYDRATION Status: Acute Current Visit: Yes (4) Diarrhea SNOMED Code(s): 09445088 Code(s): R19.7 - DIARRHEA, UNSPECIFIED Status: Acute Current Visit: Yes Qualifiers: Diarrhea type: unspecified type Qualified Code(s): R19.7 - Diarrhea, unspecified (5) Hypokalemia due to loss of potassium SNOMED Code(s): 79582734 Code(s): E87.6 - HYPOKALEMIA Status: Acute Current Visit: Yes (6) Hypotension SNOMED Code(s): 23113154 Code(s): I95.9 - HYPOTENSION, UNSPECIFIED Status: Acute Current Visit: Yes Qualifiers: Hypotension type: unspecified hypotension type Qualified Code(s): I95.9 - Hypotension, unspecified (7) Syncope and collapse SNOMED Code(s): 366549509 Code(s): R55 - SYNCOPE AND COLLAPSE Status: Acute Current Visit: Yes - Problem List Review Problem List Initiated/Reviewed/Updated: Yes - My Orders Last 24 Hours: My Active Orders 06/08/17 16:28 CULTURE URINE [RM] Routine 06/08/17 17:42 Bedrest Bathroom Privileges [RC] ASDIRECTED Vital Signs [RC] Q4HR 06/08/17 17:46 Aspiration Precautions [RC] ASDIRECTED HOB [Head of Bed Elevation] [RC] ASDIRECTED Seizure Precautions [OM.PC] Routine 06/08/17 17:47 Code Status [Resuscitation Status] Routine 06/08/17 18:05 CIWAA Assessment [RC] Q4HR 06/08/17 18:06 LORazepam [Ativan] 1 mg IVPUSH Q6H PRN 06/08/17 18:14 Haloperidol Lactate [Haldol] 1 mg IVPUSH Q8H PRN 06/08/17 18:15 NS + KCl 20mEq/L [Normal Saline with 20 mEq KCl] 1,000 ml IV ASDIRECTED 06/08/17 18:30 Pantoprazole [ProTONIX IV] 40 mg IVPUSH Q12H 06/09/17 06:41 VITAMIN D 25-HYROXY (D2, D3) [REF] Routine 06/09/17 09:00 Folic Acid 1 mg PO DAILY Thiamine [Vitamin B-1] 100 mg IV DAILY 06/09/17 11:04 CALCIUM, IONIZED [REF] Routine 06/09/17 11:30 RED BLOOD CELLS LP [BBK] Routine Transfuse Red Blood Cells [COMM] Routine 06/09/17 12:00 Sodium Chloride 0.9% [Normal Saline] 1,000 ml IV ASDIRECTED 06/09/17 12:13 Antiembolic Devices [RC] PER UNIT ROUTINE JORGE A Hose [Antiembolic Hose] [OM.PC] Routine 06/09/17 18:30 cefTRIAXone [Rocephin] 1 gm Dextrose 5% in Water 100 ml IV Q24H 06/09/17 Breakfast Clear Liquid Diet [DIET] 06/10/17 05:00 BASIC METABOLIC PANEL,BMP [CHEM] DAILY CBC WITH AUTO DIFF [HEME] DAILY MAGNESIUM [CHEM] DAILY 06/10/17 06:00 CXR [Chest 2V] [CR] Routine 06/10/17 09:00 Consult to Business Process Coordinator [CONS] Routine 06/10/17 11:00 Consult to Occupational Therapy [OT Evaluation and Treatment] [CONS] Routine Consult to Physical Therapy [PT Evaluation and Treatment] [CONS] Routine 06/11/17 05:00 BASIC METABOLIC PANEL,BMP [CHEM] DAILY CBC WITH AUTO DIFF [HEME] DAILY MAGNESIUM [CHEM] DAILY 06/12/17 05:00 BASIC METABOLIC PANEL,BMP [CHEM] DAILY CBC WITH AUTO DIFF [HEME] DAILY MAGNESIUM [CHEM] DAILY 06/13/17 05:00 BASIC METABOLIC PANEL,BMP [CHEM] DAILY CBC WITH AUTO DIFF [HEME] DAILY MAGNESIUM [CHEM] DAILY 06/14/17 05:00 BASIC METABOLIC PANEL,BMP [CHEM] DAILY CBC WITH AUTO DIFF [HEME] DAILY MAGNESIUM [CHEM] DAILY - Plan Plan:: Impression: Presyncope, unspecified Anemia--->Hgb 7.4 ETOH abuse/dependence Dehydration Electrolyte abnormalities Query sick contacts Chronic CKD Hx of GI bleed HTN Substance abuse; UDS negative with presumptive positive marijuana Plan: Recheck Hgb, if accurate T/C for 2 units PRBCs, give lasix after the first unit. Advance diet to clear liquids Check ionized Ca IVF, 0.9NS with KCl Emprirc IV ATB for soft positive UA Correct electrolyte Infectious eval ETOH/CIWA protocol NPO except ice chips and meds Asp precautions/SZ precautions DVT/GI prophylaxis
[2017-06-09] MEDS ORDERED: Sodium Chloride 0.9% 100 ML ONE (15:04)
[2017-06-09] MEDS ORDERED: cefTRIAXone 1 GM in Dextrose 5% in Water 100 ML IV SCH ×2 (18:30)
[2017-06-10] MEDS: NS + KCl 20mEq/L 1,000 ML IV SCH ×2 (00:52→11:05)
[2017-06-10] MEDS: Pantoprazole 40 MG Vial IVPUSH SCH (06:12)
--- NOTE | 2017-06-10 08:32 | CR ---
Chest: Two views of the chest were obtained. Comparison: Prior chest x-ray of 06/08/17. Slight density seen within the right lung base most likely due to atelectasis. Lungs otherwise are clear. Heart size is normal. Tortuous thoracic aorta is seen. Degenerative change is seen at the thoracolumbar junction within the spine. Impression: 1. Density within the right lung base most likely due to atelectasis. Other incidental findings. Diagnostic code #2
--- NOTE | 2017-06-10 08:34 | CT ---
Head CT Technique: Multiple axial sections through the brain were obtained. Intravenous contrast was not utilized. Comparison: Prior head CT exam of 01/12/16 is available. Findings: Ventricles along with basal cisterns and sulci over the convexities are mildly prominent. Low density encephalomalacia is identified within the left frontal region. This is most likely due to previous trauma. There is adjacent surgical change within the left superior orbital rim and lateral orbital wall with orthopedic plate and screws present. Mild diminished density noted within the periventricular white matter compatible with minimal small vessel ischemic demyelination change. No evidence of intracranial hemorrhage. No midline shift or mass effect is seen. Bone window settings were reviewed which show minimal mucosal thickening within the left mastoid sinus which is likely incidental. Other visualized sinuses are clear. No acute calvarial abnormality is identified. Impression: 1. Stable area of encephalomalacia within the left frontal lobe. Previous surgery within the left orbit which is stable. Mild senescent change noted which is stable. 2. Minimal mucosal thickening seen within the left mastoid sinus which is felt to be incidental. 3. No acute intracranial abnormality is identified. Diagnostic code #2 I agree with preliminary report issued by [facility] ([facility] report finalized on 06/08/17, 4:17 PM Central Time)
--- NOTE | 2017-06-10 08:34 | CR ---
Chest: Portable view of the chest was obtained. Comparison: Prior chest x-ray of 01/16/16. Heart size is normal. Upper mediastinum is within normal limits. Minimal atelectasis is seen above the left hemidiaphragm. Lungs otherwise are clear. Bony structures are grossly intact. Impression: 1. Incidental atelectasis above left hemidiaphragm. 2. Nothing acute is appreciated on portable chest x-ray. Diagnostic code #2
--- NOTE | 2017-06-10 08:34 | US ---
Left lower extremity deep venous ultrasound: Duplex and color flow imaging was obtained of the left common femoral, proximal greater saphenous, superficial femoral, popliteal, posterior tibial and peroneal veins. Right common femoral vein was also evaluated. Comparison: No prior venous ultrasound exam. Findings: Normal phasic flow, augmentation and compression are seen. Lymph node noted within the left groin which is felt to be incidental. Subcutaneous edema noted within the left calf. Impression: 1. Subcutaneous edema within the left calf. 2. No evidence of deep venous thrombosis is seen within the left lower extremity or within the right common femoral vein. Diagnostic code #2 I agree with preliminary report issued by [employer] ([facility] report finalized on 06/08/17, 4:48 PM Central Time)
[2017-06-10] MEDS: Thiamine 200 MG/2 ML MDV IV SCH (08:49)
[2017-06-10] MEDS: Folic Acid 1 MG Tab PO SCH (08:49)
[2017-06-10] MEDS ORDERED: Pantoprazole 40 MG Tab.CR PO SCH (10:59)
[2017-06-10] MEDS: Saccharomyces Boulardii (Probiotic) 250 MG Cap PO SCH ×2 (11:08→20:05)
[2017-06-10] MEDS ORDERED: Magnesium Sulfate/Water 4 GM in Premix Bag 1 BAG IV ONE (11:09)
[2017-06-10] MEDS ORDERED: Potassium Chloride 10% 20 MEQ/15 ML Soln 30 ML UD Cup PO ONE (11:15)
[2017-06-10] MEDS ORDERED: chlordiazePOXIDE 25 MG Cap PO ONE (11:44)
--- NOTE | 2017-06-10 14:09 | PCM.PN ---
- General Info Date of Service: 06/10/17 Functional Status: Reports: Tolerating Diet, Ambulating, Urinating - Review of Systems General: Reports: No Symptoms HEENT: Reports: No Symptoms Pulmonary: Reports: No Symptoms Cardiovascular: Reports: No Symptoms Gastrointestinal: Reports: No Symptoms Genitourinary: Reports: No Symptoms Musculoskeletal: Reports: No Symptoms Skin: Reports: No Symptoms Neurological: Reports: No Symptoms Psychiatric: Reports: No Symptoms - Patient Data Vitals - Most Recent: Last Vital Signs Temp 36.7 C 06/10/17 12:00 Pulse 101 H 06/09/17 17:40 Resp 24 H 06/10/17 08:00 BP 127/97 H 06/10/17 12:00 Pulse Ox 98 06/10/17 08:00 Weight - Most Recent: 79.288 kg I&O - Last 24 Hours: Intake & Output 06/09/17 06/10/17 06/10/17 22:59 06:59 14:59 Intake Total 1640 1512 660 Output Total 652 Balance 988 1512 660 Lab Results Last 24 Hours: Laboratory Results - last 24 hr 06/10/17 06/10/17 Range/Units 05:50 05:50 WBC 12.03 H (4.23-9.07) K/mm3 RBC 2.69 L (4.63-6.08) M/mm3 Hgb 9.0 L (13.7-17.5) gm/L Hct 26.2 L (40.1-51.0) % MCV 97.4 H (79.0-92.2) fl MCH 33.5 H (25.7-32.2) pg MCHC 34.4 (32.2-35.5) g/dl RDW Std Deviation 61.7 H (35.1-43.9) fL Plt Count 189 (163-337) K/mm3 MPV 10.2 (9.4-12.3) fl Neut % (Auto) 73.9 H (34.0-67.9) % Lymph % (Auto) 13.1 L (21.8-53.1) % [place] % (Auto) 10.8 (5.3-12.2) % Eos % (Auto) 1.2 (0.8-7.0) Baso % (Auto) 0.2 (0.1-1.2) % Neut # (Auto) 8.89 H (1.78-5.38) K/mm3 Lymph # (Auto) 1.57 (1.32-3.57) K/mm3 [place] # (Auto) 1.30 H (0.30-0.82) K/mm3 Eos # (Auto) 0.14 (0.04-0.54) K/mm3 Baso # (Auto) 0.03 (0.01-0.08) K/mm3 Sodium 134 L (136-145) mEq/L Potassium 3.8 (3.5-5.1) mEq/L Chloride 103 (98-107) mEq/L Carbon Dioxide 21 (21-32) mEq/L Anion Gap 13.8 (5-15) BUN 10 (7-18) mg/dL Creatinine 0.9 (0.7-1.3) mg/dL Est Cr Clr Drug Dosing 105.38 mL/min Estimated GFR (MDRD) > 60 (>60) mL/min BUN/Creatinine Ratio 11.1 L (14-18) Glucose 107 H (74-106) mg/dL Calcium 6.1 L (8.5-10.1) mg/dL Magnesium 1.2 L (1.8-2.4) mg/dl Med Orders - Current: Current Medications Chlordiazepoxide HCl (Librium) 25 mg PO BID [facility] Folic Acid (Folic Acid) 1 mg PO DAILY [facility] Last Admin: 06/10/17 08:49 Dose: 1 mg Haloperidol Lactate (Haldol) 1 mg IVPUSH Q8H PRN PRN Reason: restlessness Lorazepam (Ativan) 1 mg IVPUSH Q6H PRN PRN Reason: Anxiety Metoprolol Tartrate (Lopressor) 25 mg PO Q12HR [facility] Pantoprazole Sodium (Protonix) 40 mg PO Q12H [facility] Saccharomyces Boulardii (Florastor) 250 mg PO BID [facility] Last Admin: 06/10/17 11:08 Dose: 250 mg Discontinued Medications Calcium Gluconate (Calcium Gluconate) 1 gm IVPUSH ONETIME ONE Stop: 06/08/17 15:19 Last Admin: 06/08/17 15:35 Dose: 1 gm Chlordiazepoxide HCl (Librium) 10 mg PO BID [facility] Chlordiazepoxide HCl (Librium) 25 mg PO ONETIME ONE Stop: 06/10/17 11:45 Last Admin: 06/10/17 12:40 Dose: 25 mg Enoxaparin Sodium (Lovenox) 40 mg SUBCUT DAILY [facility] Last Admin: 06/09/17 11:48 Dose: Not Given Furosemide (Lasix) 20 mg IVPUSH ONETIME ONE Stop: 06/09/17 14:01 Last Admin: 06/09/17 14:59 Dose: 20 mg Sodium Chloride (Normal Saline) 1,000 mls @ 1,000 mls/hr IV ONETIME ONE Stop: 06/08/17 15:10 Last Admin: 06/08/17 14:23 Dose: 1,000 mls/hr Magnesium Sulfate 2 gm/ Premix 50 mls @ 25 mls/hr IV ONETIME ONE Stop: 06/08/17 16:22 Last Admin: 06/08/17 14:44 Dose: 25 mls/hr Potassium Chloride 10 meq/ (Premix) 100 mls @ 100 mls/hr IV Q1H [facility] Stop: 06/08/17 19:14 Last Admin: 06/08/17 19:56 Dose: 100 mls/hr Sodium Chloride (Normal Saline) 1,000 mls @ 1,000 mls/hr IV ONETIME ONE Stop: 06/08/17 16:51 Last Admin: 06/08/17 16:17 Dose: 1,000 mls/hr Sodium Chloride (Normal Saline) 1,000 mls @ 1,000 mls/hr IV ONETIME ONE Stop: 06/08/17 17:26 Last Admin: 06/08/17 16:50 Dose: 1,000 mls/hr Sodium Chloride (Normal Saline) 1,000 mls @ 1,000 mls/hr IV ONETIME ONE Stop: 06/08/17 18:08 Last Admin: 06/08/17 17:12 Dose: 1,000 mls/hr Magnesium Sulfate 2 gm/ Premix 50 mls @ 25 mls/hr IV ONETIME ONE Stop: 06/08/17 20:01 Last Admin: 06/08/17 18:33 Dose: 25 mls/hr Potassium Chloride/Sodium Chloride (Normal Saline With 20 Meq Kcl) 1,000 mls @ 150 mls/hr IV ASDIRECTED [facility] Last Admin: 06/10/17 11:05 Dose: 100 mls/hr Ceftriaxone Sodium 1 gm/ (Sodium Chloride) 100 mls @ 200 mls/hr IV Q24H [facility] Last Admin: 06/08/17 18:41 Dose: 200 mls/hr Magnesium Sulfate 4 gm/ Premix 100 mls @ 50 mls/hr IV ONETIME ONE Stop: 06/09/17 11:23 Last Admin: 06/09/17 10:01 Dose: 50 mls/hr Ceftriaxone Sodium 1 gm/ (Dextrose/Water) 100 mls @ 200 mls/hr IV Q24H [facility] Last Admin: 06/09/17 18:24 Dose: 200 mls/hr Sodium Chloride (Normal Saline) 100 mls @ 100 mls/hr IV ASDIRECTED [facility] Sodium Chloride (Normal Saline) Confirm Administered Dose 100 mls @ as directed .ROUTE .STK-MED ONE Stop: 06/09/17 12:34 Last Admin: 06/09/17 12:00 Dose: 100 ml Sodium Chloride (Normal Saline) Confirm Administered Dose 100 mls @ as directed .ROUTE .STK-MED ONE Stop: 06/09/17 15:05 Last Admin: 06/09/17 15:25 Dose: 100 ml Magnesium Sulfate 4 gm/ Premix 100 mls @ 50 mls/hr IV ONETIME ONE Stop: 06/10/17 13:08 Last Admin: 06/10/17 13:11 Dose: 50 mls/hr Pantoprazole Sodium (Protonix Iv) 40 mg IVPUSH Q12H [facility] Last Admin: 06/10/17 06:12 Dose: 40 mg Pantoprazole Sodium (Protonix) 40 mg PO Q12H [facility] Last Admin: 06/10/17 11:07 Dose: Not Given Potassium Chloride (Potassium Chloride) 40 meq PO ONETIME ONE Stop: 06/08/17 16:26 Last Admin: 06/08/17 17:05 Dose: Not Given Potassium Chloride (Klor-Con M20) 40 meq PO ONETIME ONE Stop: 06/08/17 16:56 Last Admin: 06/08/17 17:01 Dose: 40 meq Potassium Chloride (Potassium Chloride) 40 meq PO ONETIME ONE Stop: 06/10/17 11:16 Last Admin: 06/10/17 12:40 Dose: 40 meq Thiamine HCl (Vitamin B-1) 1 mg IV DAILY [facility] Thiamine HCl (Vitamin B-1) 100 mg IV DAILY [facility] Stop: 06/10/17 09:01 Last Admin: 06/10/17 08:49 Dose: 100 mg - Exam Quality Assessment: Supplemental Oxygen, DVT Prophylaxis General: Alert, Oriented, Cooperative, No Acute Distress HEENT: Pupils Equal, Pupils Reactive, EOMI Neck: Supple, Trachea Midline Lungs: Normal Respiratory Effort Cardiovascular: Regular Rate, Tachycardia GI/Abdominal Exam: Normal Bowel Sounds, Soft, Non-Tender, No Organomegaly, No Distention (Male) Exam: Deferred Back Exam: Normal Inspection Extremities: Normal Inspection Skin: Warm Neurological: No New Focal Deficit Psy/Mental Status: Anxious - Problem List & Annotations (1) Alcohol intoxication SNOMED Code(s): 53640401 Code(s): F10.929 - ALCOHOL USE, UNSPECIFIED WITH INTOXICATION, UNSPECIFIED Status: Acute Current Visit: Yes Qualifiers: Complication of substance-induced condition: uncomplicated Qualified Code(s ): F10.920 - Alcohol use, unspecified with intoxication, uncomplicated (2) Altered mental status SNOMED Code(s): 037404046 Code(s): R41.82 - ALTERED MENTAL STATUS, UNSPECIFIED Status: Acute Current Visit: Yes Qualifiers: Altered mental status type: disorientation Qualified Code(s): R41.0 - Disorientation, unspecified (3) Dehydration, moderate SNOMED Code(s): 1532572398398 Code(s): E86.0 - DEHYDRATION Status: Acute Current Visit: Yes (4) Diarrhea SNOMED Code(s): 36900656 Code(s): R19.7 - DIARRHEA, UNSPECIFIED Status: Acute Current Visit: Yes Qualifiers: Diarrhea type: unspecified type Qualified Code(s): R19.7 - Diarrhea, unspecified (5) Hypokalemia due to loss of potassium SNOMED Code(s): 56358817 Code(s): E87.6 - HYPOKALEMIA Status: Acute Current Visit: Yes (6) Hypotension SNOMED Code(s): 50080731 Code(s): I95.9 - HYPOTENSION, UNSPECIFIED Status: Acute Current Visit: Yes Qualifiers: Hypotension type: unspecified hypotension type Qualified Code(s): I95.9 - Hypotension, unspecified (7) Syncope and collapse SNOMED Code(s): 438227503 Code(s): R55 - SYNCOPE AND COLLAPSE Status: Acute Current Visit: Yes - Problem List Review Problem List Initiated/Reviewed/Updated: Yes - My Orders Last 24 Hours: My Active Orders 06/10/17 09:00 Consult to Mortgage [employer] [CONS] Routine 06/10/17 10:58 Patient Status [ADT] Routine 06/10/17 11:00 Consult to Occupational Therapy [OT Evaluation and Treatment] [CONS] Routine Consult to Physical Therapy [PT Evaluation and Treatment] [CONS] Routine CARBOXY-THC BY GC/MS Routine Saccharomyces Boulardii [Florastor] 250 mg PO BID 06/10/17 11:27 Admission Status [Patient Status] [ADT] Routine 06/10/17 11:41 Transfuse RBC [Transfuse Red Blood Cells] [COMM] Routine 06/10/17 18:00 Pantoprazole [ProTONIX] 40 mg PO Q12H 06/10/17 21:00 Metoprolol Tartrate [Lopressor] 25 mg PO Q12HR 06/11/17 05:00 BASIC METABOLIC PANEL,BMP [CHEM] DAILY CBC WITH AUTO DIFF [HEME] DAILY MAGNESIUM [CHEM] DAILY 06/12/17 05:00 BASIC METABOLIC PANEL,BMP [CHEM] DAILY CBC WITH AUTO DIFF [HEME] DAILY MAGNESIUM [CHEM] DAILY 06/13/17 05:00 BASIC METABOLIC PANEL,BMP [CHEM] DAILY CBC WITH AUTO DIFF [HEME] DAILY MAGNESIUM [CHEM] DAILY 06/14/17 05:00 BASIC METABOLIC PANEL,BMP [CHEM] DAILY CBC WITH AUTO DIFF [HEME] DAILY MAGNESIUM [CHEM] DAILY - Plan Plan:: Impression: Presyncope, unspecified Anemia--->Hgb 7.4 ETOH abuse/dependence-->acute withdrawal starting Anemia, query salicylic acid abuse; s/p 2 units PRBCs Dehydration Electrolyte abnormalities Query sick contacts Chronic CKD Hx of GI bleed HTN Substance abuse; UDS negative with presumptive positive marijuana Plan: [facility] eval Advance diet as tolerated. BB, scheduled Librium Check salicylate level Check ionized Ca IVF, 0.9NS with KCl Emprirc IV ATB for soft positive UA-->stop Rocephin Correct electrolyte Infectious eval ETOH/CIWA protocol NPO except ice chips and meds Asp precautions/SZ precautions DVT/GI prophylaxis
[2017-06-10] MEDS ORDERED: Metoprolol Tartrate 5 MG/5 ML SDV IVPUSH PRN (14:10)
[2017-06-10] MEDS: Metoprolol Tartrate 25 MG Tab PO SCH ×2 (14:27→20:04)
[2017-06-10] MEDS: Pantoprazole 40 MG Tab.CR PO SCH (18:32)
[2017-06-10] MEDS: chlordiazePOXIDE 25 MG Cap PO SCH (20:05)
[2017-06-10] MEDS ORDERED: chlordiazePOXIDE 10 MG Cap PO SCH (21:00)
[2017-06-11] MEDS: Pantoprazole 40 MG Tab.CR PO SCH (06:35)
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
[2017-06-11] MEDS: Saccharomyces Boulardii (Probiotic) 250 MG Cap PO SCH (09:27)
[2017-06-11] MEDS: Metoprolol Tartrate 25 MG Tab PO SCH (09:28)
[2017-06-11] MEDS: chlordiazePOXIDE 25 MG Cap PO SCH (09:28)
[2017-06-11] MEDS: Folic Acid 1 MG Tab PO SCH (09:29)
[2017-06-11 09:30] VITALS: BP 118/86
[2017-06-11] MEDS ORDERED: Magnesium Sulfate/Water 4 GM in Premix Bag 1 BAG IV ONE (09:41)
[2017-06-11] MEDS ORDERED: Loperamide 2 MG Cap PO PRN (10:12)
--- NOTE | 2017-06-11 12:49 | PCM.DCSUM1 ---
Discharge Summary - Hospital Course Free Text/Narrative:: 51 year old male who reportedly had a syncopal episode was admitted for confusion, hypotension and subsequent ETOH withdrawal. Significant electrolyte abnormalities were found as well as anemia. He received 2 units of PRBCs and had no episodes of acute bleeding. Apparently he frequently takes ASA, this was eliminated from his med list at [place]. Stool studies were sent for evaluation ; a GI consult has been made for possible EGD/colonoscopy. Consults Psychiatry re: depression/substance abuse Primary Dx Syncopal/presyncopal episode Anemia ETOH withdrawal Electrolyte abnormalities Disposition Home Meds Florastor 250 mg daily Protonix 40 mg daily Imodium 2 mg as directed for diarrhea Folic acid 1 mg daily Multivitamin one daily Follow up PCP GI consult Diet GI diet/low residue as prescribed Instructions Avoid ETOH. - Discharge Data Discharge Date: 06/11/17 Discharge Disposition: Home, Self-Care 01 Condition: Good - Discharge Diagnosis/Problem(s) (1) Alcohol intoxication SNOMED Code(s): 20292598 ICD Code: F10.929 - ALCOHOL USE, UNSPECIFIED WITH INTOXICATION, UNSPECIFIED Status: Acute Qualifiers: Complication of substance-induced condition: uncomplicated Qualified Code(s ): F10.920 - Alcohol use, unspecified with intoxication, uncomplicated (2) Altered mental status SNOMED Code(s): 496424639 ICD Code: R41.82 - ALTERED MENTAL STATUS, UNSPECIFIED Status: Acute Qualifiers: Altered mental status type: disorientation Qualified Code(s): R41.0 - Disorientation, unspecified (3) Dehydration, moderate SNOMED Code(s): 3054666104844 ICD Code: E86.0 - DEHYDRATION Status: Acute (4) Diarrhea SNOMED Code(s): 49769815 ICD Code: R19.7 - DIARRHEA, UNSPECIFIED Status: Acute Qualifiers: Diarrhea type: unspecified type Qualified Code(s): R19.7 - Diarrhea, unspecified (5) Hypokalemia due to loss of potassium SNOMED Code(s): 94145893 ICD Code: E87.6 - HYPOKALEMIA Status: Acute (6) Hypotension SNOMED Code(s): 83288708 ICD Code: I95.9 - HYPOTENSION, UNSPECIFIED Status: Acute Qualifiers: Hypotension type: unspecified hypotension type Qualified Code(s): I95.9 - Hypotension, unspecified (7) Syncope and collapse SNOMED Code(s): 220273403 ICD Code: R55 - SYNCOPE AND COLLAPSE Status: Acute - Patient Summary/Data Consults: Consultations 06/10/17 09:00 Consult to [employer] [employer]ctor [CONS] Routine 06/10/17 11:00 Consult to Occupational Therapy [OT Evaluation and Treatment] [CONS] Routine Consult to Physical Therapy [PT Evaluation and Treatment] [CONS] Routine 06/10/17 11:46 Consult to Physician [CONS] Urgent - Patient Instructions Diet: No Alcoholic Beverages, GI Soft/Low Residue/Low Fiber Activity: As Tolerated (OT to eval and tx as outpatient) Driving: Do Not Drive Showering/Bathing: May Shower Notify Provider of: Fever, Increased Pain, Nausea and/or Vomiting - Discharge Plan Prescriptions/Med Rec: Folic Acid 1 mg PO DAILY #30 tablet Loperamide [Imodium] 2 mg PO Q4H PRN #15 cap PRN Reason: Diarrhea Pantoprazole [ProTONIX] 40 mg PO DAILY #30 tab.cr Home Medications: Home Meds Folic Acid 1 mg PO DAILY #30 tablet 06/11/17 [Rx] Loperamide [Imodium] 2 mg PO Q4H PRN #15 cap 06/11/17 [Rx] Pantoprazole [ProTONIX] 40 mg PO DAILY #30 tab.cr 06/11/17 [Rx] Patient Handouts: Smoking Cessation, Tips for Success, [id number], Blood Transfusion, [id number], Hypotension, Wqfs-[id number], Dehydration, Adult, Easy- to-Read, Delirium, Blood Transfusion, Care After, Ybha-ud-[id number] Forms: ED Department Discharge Referrals: PCP,None [Primary Care Provider] - - Discharge Summary/Plan Comment DC Time >30 min.: No - General Info Functional Status: Reports: Tolerating Diet, Ambulating, Urinating - Review of Systems General: Reports: No Symptoms HEENT: Reports: No Symptoms Pulmonary: Reports: No Symptoms Cardiovascular: Reports: No Symptoms Gastrointestinal: Reports: No Symptoms Genitourinary: Reports: No Symptoms Musculoskeletal: Reports: No Symptoms Skin: Reports: No Symptoms Neurological: Reports: No Symptoms Psychiatric: Reports: No Symptoms - Patient Data Vitals - Most Recent: Last Vital Signs Temp 36.6 C 06/11/17 08:00 Pulse 112 H 06/11/17 09:28 Resp 16 06/11/17 08:00 BP 118/86 06/11/17 09:28 Pulse Ox 98 06/11/17 08:00 Weight - Most Recent: 79.469 kg I&O - Last 24 hours: Intake & Output 06/10/17 06/11/17 06/11/17 22:59 06:59 14:59 Intake Total 1690 100 420 Output Total 400 Balance 1290 100 420 Lab Results - Last 24 hrs: Laboratory Results - last 24 hr 06/09/17 06/10/17 06/11/17 Range/Units 06:41 18:05 04:55 WBC 13.27 H (4.23-9.07) K/mm3 RBC 2.69 L (4.63-6.08) M/mm3 Hgb 9.0 L (13.7-17.5) gm/L Hct 26.7 L (40.1-51.0) % MCV 99.3 H (79.0-92.2) fl MCH 33.5 H (25.7-32.2) pg MCHC 33.7 (32.2-35.5) g/dl RDW Std Deviation 61.2 H (35.1-43.9) fL Plt Count 211 (163-337) K/mm3 MPV 10.2 (9.4-12.3) fl Neut % (Auto) 74.2 H (34.0-67.9) % Lymph % (Auto) 17.4 L (21.8-53.1) % [place] % (Auto) 7.1 (5.3-12.2) % Eos % (Auto) 0.6 L (0.8-7.0) Baso % (Auto) 0.2 (0.1-1.2) % Neut # (Auto) 9.86 H (1.78-5.38) K/mm3 Lymph # (Auto) 2.31 (1.32-3.57) K/mm3 [place] # (Auto) 0.94 H (0.30-0.82) K/mm3 Eos # (Auto) 0.08 (0.04-0.54) K/mm3 Baso # (Auto) 0.02 (0.01-0.08) K/mm3 Sodium (136-145) mEq/L Potassium (3.5-5.1) mEq/L Chloride (98-107) mEq/L Carbon Dioxide (21-32) mEq/L Anion Gap (5-15) BUN (7-18) mg/dL Creatinine (0.7-1.3) mg/dL Est Cr Clr Drug Dosing mL/min Estimated GFR (MDRD) (>60) mL/min BUN/Creatinine Ratio (14-18) Glucose (74-106) mg/dL Calcium (8.5-10.1) mg/dL Magnesium (1.8-2.4) mg/dl Vitamin D 25-Hydroxy 9 L (30-100) ng/mL Salicylates < 0.2 L (2.8-20) mg/dL 06/11/17 Range/Units 04:55 WBC (4.23-9.07) K/mm3 RBC (4.63-6.08) M/mm3 Hgb (13.7-17.5) gm/L Hct (40.1-51.0) % MCV (79.0-92.2) fl MCH (25.7-32.2) pg MCHC (32.2-35.5) g/dl RDW Std Deviation (35.1-43.9) fL Plt Count (163-337) K/mm3 MPV (9.4-12.3) fl Neut % (Auto) (34.0-67.9) % Lymph % (Auto) (21.8-53.1) % [place] % (Auto) (5.3-12.2) % Eos % (Auto) (0.8-7.0) Baso % (Auto) (0.1-1.2) % Neut # (Auto) (1.78-5.38) K/mm3 Lymph # (Auto) (1.32-3.57) K/mm3 [place] # (Auto) (0.30-0.82) K/mm3 Eos # (Auto) (0.04-0.54) K/mm3 Baso # (Auto) (0.01-0.08) K/mm3 Sodium 134 L (136-145) mEq/L Potassium 4.2 (3.5-5.1) mEq/L Chloride 105 (98-107) mEq/L Carbon Dioxide 21 (21-32) mEq/L Anion Gap 12.2 (5-15) BUN 11 (7-18) mg/dL Creatinine 1.2 (0.7-1.3) mg/dL Est Cr Clr Drug Dosing 79.04 mL/min Estimated GFR (MDRD) > 60 (>60) mL/min BUN/Creatinine Ratio 9.2 L (14-18) Glucose 111 H (74-106) mg/dL Calcium 7.0 L (8.5-10.1) mg/dL Magnesium 1.7 L (1.8-2.4) mg/dl Vitamin D 25-Hydroxy (30-100) ng/mL Salicylates (2.8-20) mg/dL Med Orders - Current: Current Medications Chlordiazepoxide HCl (Librium) 25 mg PO BID [facility] Last Admin: 06/11/17 09:28 Dose: 25 mg Folic Acid (Folic Acid) 1 mg PO DAILY [facility] Last Admin: 06/11/17 09:29 Dose: 1 mg Haloperidol Lactate (Haldol) 1 mg IVPUSH Q8H PRN PRN Reason: restlessness Loperamide HCl (Imodium) 2 mg PO Q4H PRN PRN Reason: Diarrhea Last Admin: 06/11/17 10:51 Dose: 2 mg Lorazepam (Ativan) 1 mg IVPUSH Q6H PRN PRN Reason: Anxiety Metoprolol Tartrate (Lopressor) 25 mg PO Q12HR [facility] Last Admin: 06/11/17 09:28 Dose: 25 mg Metoprolol Tartrate (Lopressor) 5 mg IVPUSH Q6H PRN PRN Reason: heart rate Last Admin: 06/11/17 06:28 Dose: 5 mg Pantoprazole Sodium (Protonix) 40 mg PO Q12H [facility] Last Admin: 06/11/17 06:35 Dose: 40 mg Saccharomyces Boulardii (Florastor) 250 mg PO BID [facility] Last Admin: 06/11/17 09:27 Dose: 250 mg Discontinued Medications Calcium Gluconate (Calcium Gluconate) 1 gm IVPUSH ONETIME ONE Stop: 06/08/17 15:19 Last Admin: 06/08/17 15:35 Dose: 1 gm Chlordiazepoxide HCl (Librium) 10 mg PO BID [facility] Chlordiazepoxide HCl (Librium) 25 mg PO ONETIME ONE Stop: 06/10/17 11:45 Last Admin: 06/10/17 12:40 Dose: 25 mg Enoxaparin Sodium (Lovenox) 40 mg SUBCUT DAILY [facility] Last Admin: 06/09/17 11:48 Dose: Not Given Furosemide (Lasix) 20 mg IVPUSH ONETIME ONE Stop: 06/09/17 14:01 Last Admin: 06/09/17 14:59 Dose: 20 mg Sodium Chloride (Normal Saline) 1,000 mls @ 1,000 mls/hr IV ONETIME ONE Stop: 06/08/17 15:10 Last Admin: 06/08/17 14:23 Dose: 1,000 mls/hr Magnesium Sulfate 2 gm/ Premix 50 mls @ 25 mls/hr IV ONETIME ONE Stop: 06/08/17 16:22 Last Admin: 06/08/17 14:44 Dose: 25 mls/hr Potassium Chloride 10 meq/ (Premix) 100 mls @ 100 mls/hr IV Q1H [facility] Stop: 06/08/17 19:14 Last Admin: 06/08/17 19:56 Dose: 100 mls/hr Sodium Chloride (Normal Saline) 1,000 mls @ 1,000 mls/hr IV ONETIME ONE Stop: 06/08/17 16:51 Last Admin: 06/08/17 16:17 Dose: 1,000 mls/hr Sodium Chloride (Normal Saline) 1,000 mls @ 1,000 mls/hr IV ONETIME ONE Stop: 06/08/17 17:26 Last Admin: 06/08/17 16:50 Dose: 1,000 mls/hr Sodium Chloride (Normal Saline) 1,000 mls @ 1,000 mls/hr IV ONETIME ONE Stop: 06/08/17 18:08 Last Admin: 06/08/17 17:12 Dose: 1,000 mls/hr Magnesium Sulfate 2 gm/ Premix 50 mls @ 25 mls/hr IV ONETIME ONE Stop: 06/08/17 20:01 Last Admin: 06/08/17 18:33 Dose: 25 mls/hr Potassium Chloride/Sodium Chloride (Normal Saline With 20 Meq Kcl) 1,000 mls @ 150 mls/hr IV ASDIRECTED [facility] Last Admin: 06/10/17 11:05 Dose: 100 mls/hr Ceftriaxone Sodium 1 gm/ (Sodium Chloride) 100 mls @ 200 mls/hr IV Q24H [facility] Last Admin: 06/08/17 18:41 Dose: 200 mls/hr Magnesium Sulfate 4 gm/ Premix 100 mls @ 50 mls/hr IV ONETIME ONE Stop: 06/09/17 11:23 Last Admin: 06/09/17 10:01 Dose: 50 mls/hr Ceftriaxone Sodium 1 gm/ (Dextrose/Water) 100 mls @ 200 mls/hr IV Q24H [facility] Last Admin: 06/09/17 18:24 Dose: 200 mls/hr Sodium Chloride (Normal Saline) 100 mls @ 100 mls/hr IV ASDIRECTED [facility] Sodium Chloride (Normal Saline) Confirm Administered Dose 100 mls @ as directed .ROUTE .STK-MED ONE Stop: 06/09/17 12:34 Last Admin: 06/09/17 12:00 Dose: 100 ml Sodium Chloride (Normal Saline) Confirm Administered Dose 100 mls @ as directed .ROUTE .STK-MED ONE Stop: 06/09/17 15:05 Last Admin: 06/09/17 15:25 Dose: 100 ml Magnesium Sulfate 4 gm/ Premix 100 mls @ 50 mls/hr IV ONETIME ONE Stop: 06/10/17 13:08 Last Admin: 06/10/17 13:11 Dose: 50 mls/hr Magnesium Sulfate 4 gm/ Premix 100 mls @ 50 mls/hr IV ONETIME ONE Stop: 06/11/17 11:40 Last Admin: 06/11/17 10:44 Dose: 50 mls/hr Pantoprazole Sodium (Protonix Iv) 40 mg IVPUSH Q12H [facility] Last Admin: 06/10/17 06:12 Dose: 40 mg Pantoprazole Sodium (Protonix) 40 mg PO Q12H [facility] Last Admin: 06/10/17 11:07 Dose: Not Given Potassium Chloride (Potassium Chloride) 40 meq PO ONETIME ONE Stop: 06/08/17 16:26 Last Admin: 06/08/17 17:05 Dose: Not Given Potassium Chloride (Klor-Con M20) 40 meq PO ONETIME ONE Stop: 06/08/17 16:56 Last Admin: 06/08/17 17:01 Dose: 40 meq Potassium Chloride (Potassium Chloride) 40 meq PO ONETIME ONE Stop: 06/10/17 11:16 Last Admin: 06/10/17 12:40 Dose: 40 meq Thiamine HCl (Vitamin B-1) 1 mg IV DAILY [facility]LEN[facility] Thiamine HCl (Vitamin B-1) 100 mg IV DAILY [facility] Stop: 06/10/17 09:01 Last Admin: 06/10/17 08:49 Dose: 100 mg - Exam Quality Assessment: Reports: DVT Prophylaxis General: Reports: Alert, Oriented, Cooperative HEENT: Reports: Pupils Equal, Pupils Reactive, EOMI Neck: Reports: Supple, Trachea Midline Lungs: Reports: Normal Respiratory Effort Cardiovascular: Reports: Regular Rate, Regular Rhythm GI/Abdominal Exam: Normal Bowel Sounds, Soft, Non-Tender, No Organomegaly, No Distention (Male) Exam: Deferred Rectal (Males) Exam: Deferred Back Exam: Reports: Normal Inspection Extremities: Normal Inspection, No Pedal Edema Skin: Reports: Warm Neurological: Reports: No New Focal Deficit Psy/Mental Status: Reports: Alert, Normal Affect, Normal Mood *Q Meaningful Use (DIS) - VTE *Q VTE Criteria *Q: - Stroke *Q Stroke Criteria *Q: - AMI *Q AMI Criteria *Q:
== END 2017-06-11 14:58 | disposition home or self-care (01) | DRG 897 ==
LOC: JD.ED 13:48 → JD.ICU 17:29 → UNDOADMIN 17:29 → JD.ICU 17:49 → UNDOADMIN 06-10 17:39 → JD.ICU 06-10 17:39
PROVIDERS: ADMIT Internal Medicine Cardiovascular Disease; ATTEND Internal Medicine Cardiovascular Disease
PROC: 30253N1 (ICD-10-PCS; principal; 2017-06-08)
PROC: HZ2ZZZZ Detoxification Services for Substance Abuse Treatment (ICD-10-PCS; 2017-06-08)
DX: F10.239 Alcohol dependence with withdrawal, unspecified (principal); I95.9 Hypotension, unspecified; R55 Syncope and collapse; D64.9 Anemia, unspecified; Y90.0 Blood alcohol level of less than 20 mg/100 ml; E87.8 Other disorders of electrolyte and fluid balance, not elsewhere classified; R41.0 Disorientation, unspecified; R19.7 Diarrhea, unspecified; E87.6 Hypokalemia; F17.210 Nicotine dependence, cigarettes, uncomplicated; N18.9 Chronic kidney disease, unspecified; I12.9 Hypertensive chronic kidney disease with stage 1 through stage 4 chronic kidney disease, or unspecified chronic kidney disease; H53.8 Other visual disturbances; M19.90 Unspecified osteoarthritis, unspecified site; F41.9 Anxiety disorder, unspecified
CPT/HCPCS: 36415; 36430; 70450; 70450-26; 71010; 71010-26; 71020; 71020-26; 80048; 80053; 80306; 80349; 81001; 82140; 82306; 82330; 82607; 82746; 83036; 83690; 83735; 84443; 84484; 85018; 85025; 85610; 86738; 86850; 86900; 86901; 86922; 87046; 87086; 87427; 87493; 87804; 89055; 93005; 93971-26-LT; 93971-LT; 96361; 96365; 96366; 96375; 97110-GO; 97110-GP; 97162-GP; 97166-GO; 97530-GO; 97530-GP; 99223; 99231; 99238; 99285; 99285-25; A9270-GY; C9113; G0480; J0610; J0696; J3411; J3475; J3480; J3490; J7030; J7040; J7060; P9016

== ENCOUNTER 2019-11-27 14:15 | Inpatient (IN) | payer OTHER ==
[2019-11-27] MEDS ORDERED: Acetaminophen 325 MG Tab PO ONE (14:43)
[2019-11-27] MEDS ORDERED: Dextrose 5%-0.9% NaCl 1,000 ML IV SCH (14:45)
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
--- NOTE | 2019-11-27 15:04 | CR ---
Chest: Portable view of the chest was obtained. Comparison: Prior chest x-ray of 02/05/19. Heart is slightly enlarged as an interval change from previous exam. Tortuous thoracic aorta is seen. Lungs show no acute parenchymal change. Bony structures are grossly intact. Impression: 1. Heart size mildly enlarged which is more prominent than on previous study. 2. Nothing acute is otherwise seen. Diagnostic code #2 This report was dictated in MDT
--- NOTE | 2019-11-27 18:23 | CT ---
CT abdomen and pelvis Technique: Multiple axial sections were obtained from above the dome of the diaphragm inferiorly through the pubic symphysis. Intravenous contrast not utilized. Oral contrast has been given. Comparison: No prior abdominal imaging is available. Findings: Appendix is seen and is normal in size. No inflammatory change is seen around the appendix. Other findings: Visualized lung bases show nothing acute. Noncontrast liver shows no focal parenchymal abnormality. Small hiatal hernia is noted. Spleen size is normal. Adrenal glands show no nodule. Kidneys show no abnormal calcifications or hydronephrosis. Pancreas is within normal limits. Surgical clips are seen from prior cholecystectomy. Aorta shows atherosclerotic calcification with no aneurysm. Atherosclerotic calcification continues into the iliac vessels. No retroperitoneal adenopathy or mesenteric abnormalities are seen. No pelvic mass or adenopathy is noted. Bladder is somewhat distended. No free fluid is seen. Bone window settings were reviewed which shows no acute osseous finding. Mild degenerative change is scattered throughout the spine. Impression: 1. Bladder somewhat distended and difficult to exclude an element of bladder outlet obstruction. 2. Normal appearing appendix. 3. Other findings as noted above believed to be nonacute. Diagnostic code #2 This report was dictated in MDT
[2019-11-27] MEDS ORDERED: Lactated Ringers 1,000 ML IV SCH ×2 (18:45→20:30)
[2019-11-27] MEDS: cefTRIAXone 2 GM in Sodium Chloride 0.9% 100 ML IV SCH (18:48)
[2019-11-27] MEDS ORDERED: Lidocaine 2% Jelly 10 ML Urojet MUCMEM ONE (18:58)
[2019-11-27] MEDS ORDERED: Magnesium Sulfate/Water 4 GM in Premix Bag 1 BAG IV ONE (20:06)
[2019-11-27] MEDS ORDERED: Ondansetron 4 MG Tab.DIS PO PRN (20:29)
[2019-11-27] MEDS ORDERED: Acetaminophen/HYDROcodone 325-5 MG Tab PO PRN (20:29)
[2019-11-27] MEDS ORDERED: Acetaminophen 325 MG Tab PO PRN (20:29)
[2019-11-27] MEDS ORDERED: Orphenadrine 100 MG Tab.ER PO PRN (20:36)
--- NOTE | 2019-11-27 20:54 | PCM.HP.2 ---
H&P History of Present Illness - General Date of Service: 11/27/19 Admit Problem/Dx: Admission Diagnosis/Problem Admission Diagnosis/Problem Upper urinary tract infection - History of Present Illness Initial Comments - Free Text/Narative: 53-year-old male presents to the emergency department after complaining of dysuria, dizziness, and fever. Patient states he started having dysuria for approximately 1 month. This morning he became very lightheaded and dizzy and it worsened when he walked. He states that he did not have a fever, but when asked by the emergency department he stated he had 3 days of very high fever up to 104 degrees. He had intermittent Reiger's and chills. Patient states he has urinary frequency and right-sided flank pain. He had some nausea yesterday. He has nocturia x2. No history of prostate symptoms or disease. He also complains of a dry cough for a week, shortness of breath, but he has a history of heart failure, and a mild sore throat. In the emergency department he had a negative COVID test. Patient states he smokes occasionally 2 to 3 cigarettes every 3 days. He was a heavier smoker approximate 12 years ago. He has a history of alcohol abuse, but stopped 8 years ago. He did have 2 beers 3 days ago. He states is the only alcohol he has had in 8 years. In the emergency department temperature was 98.2. White count was 7.18, hemoglobin 8.4, platelets 188. 0% bands. ESR 78. C-reactive protein 15.5. Sodium 137, potassium 4.0, bicarb 21, anion gap 15, BUN 38, creatinine 1.8, estimated GFR 40, glucose 98, magnesium 1.4, total bilirubin 0.6, AST 27, ALT 16 , alkaline phosphatase 173, proBNP 390, albumin 3.0. SARS virus RNA negative UA: 40-50 WBCs, RBCs 0-5, many bacteria. CT of the abdomen pelvis without contrast: 1. Bladder somewhat distended and difficult to exclude an element of bladder outlet obstruction. 2. Normal-appearing appendix. Nonacute findings. Chest x-ray: 1. Heart size mildly enlarged which is more prominent than on previous study. Otherwise nothing acute. EKG: Normal sinus rhythm, ventricular rate of 70, Q waves in lead III and aVF? consider old inferior infarct, low voltage precordial leads. Right Lower Abdomen Pain Score (Numeric/FACES): 8 - Related Data Allergies/Adverse Reactions: Allergies Allergy/AdvReac Type Severity Reaction Status Date / Time allopurinol Allergy Severe Rash Verified 11/27/19 19:45 Home Medications: Home Meds Calcium Carbonate [Tums] 2 tab PO BID 02/05/19 [History] Folic Acid/Vitamin B Comp W-C [Renal Caps Softgel] 1 mg PO DAILY 02/05/19 [ History] Furosemide [Lasix] 80 mg PO TID 02/05/19 [History] Gabapentin [Neurontin] 300 mg PO BID 02/05/19 [History] Levothyroxine 25 mcg PO ACBREAKFAST 02/05/19 [History] Magnesium Oxide [Magnesium] 400 mg PO BID 02/05/19 [History] Orphenadrine [Norflex] 100 mg PO BID PRN 02/05/19 [History] Iron Polysaccharides Complex [Ferrex 150] 150 mg PO BID 11/27/19 [History] Past Medical History HEENT History: Reports: Other (See Below) Other HEENT History: blurry vision for past couple months on the left eye Cardiovascular History: Reports: Heart Failure, Heart Murmur, Hypertension Respiratory History: Reports: SOB Gastrointestinal History: Reports: GI Bleed Genitourinary History: Reports: Acute Renal Failure Musculoskeletal History: Reports: Arthritis, Gout, RA Other Musculoskeletal History: "joint problems" Neurological History: Reports: Head Trauma Psychiatric History: Reports: Addiction Endocrine/Metabolic History: Reports: Hypothyroidism Hematologic History: Reports: Anemia Immunologic History: Reports: None Oncologic (Cancer) History: Reports: None Dermatologic History: Reports: None - Infectious Disease History Infectious Disease History: Reports: None - Past Surgical History Head Surgeries/Procedures: Reports: None HEENT Surgical History: Reports: Tonsillectomy Musculoskeletal Surgical History: Reports: Amputation Social & Family History - Family History Family Medical History: Noncontributory Cardiac: Reports: CAD Musculoskeletal: Reports: Arthritis Other Dermatologic Family History: pt slightly confused, not sure of family hx - Tobacco Use Smoking Status *Q: Current Every Day Smoker Years of Tobacco use: 17 Packs/Tins Daily: 0 - Caffeine Use Caffeine Use: Reports: Coffee, Tea - Recreational Drug Use Recreational Drug Use: No Recreational Drug Type: Reports: Benzodiazepines (Least on the past notes.), Marijuana/Hashish (In the past.) Recreational Drug Use Frequency: Binges - Living Situation & Occupation Living situation: Reports: Occupation: Unemployed H&P Review of Systems - Review of Systems: Review Of Systems: Comprehensive ROS is negative, except as noted in HPI. Exam - Exam Exam: See Below - Vital Signs Vital Signs: Last Vital Signs Temp 97.3 F 11/27/19 19:31 Pulse 61 11/27/19 19:31 Resp 16 11/27/19 19:31 BP 116/76 11/27/19 19:31 Pulse Ox 99 11/27/19 19:31 Weight: 147 lb 12.8 oz - Exam General: Alert, Oriented, 4 HEENT: Conjunctiva Clear, EACs Clear, Hearing Intact, Mucosa Moist & [place] Neck: Supple, Trachea Midline, 2 Lungs: Normal Respiratory Effort, Crackles (Bibasilar) Cardiovascular: Regular Rate, Regular Rhythm GI/Abdominal Exam: Normal Bowel Sounds, Soft, No Organomegaly, No Distention, Tender (Right upper quadrant and right flank, mild). No: Rigid, Rebound Rectal (Males) Exam: Normal Rectal Tone, Other (Boggy enlarged prostate with significant tenderness) Back Exam: CVA Tenderness (R) Extremities: Normal Inspection, Normal Range of Motion, Non-Tender, No Pedal Edema, Normal Capillary Refill, Joint Swelling (Multiple MCP joints on both hands) Peripheral Pulses: 1+: Posterior Tibial (L), Posterior Tibial (R), Dorsalis Pedis (L), Dorsalis Pedis (R) Skin: Warm, Dry, Intact Neurological: Cranial Nerves Intact Neuro Extensive - Mental Status: Alert, Oriented x3, Normal Mood/Affect, Normal Cognition, Memory Intact Psychiatric: Alert, Normal Affect, Normal Mood - Patient Data Lab Results Last 24 hrs: Laboratory Results - last 24 hr 11/27/19 11/27/19 11/27/19 Range/Units 14:46 15:10 15:10 WBC 7.18 (4.23-9.07) K/mm3 RBC 2.75 L (4.63-6.08) M/mm3 Hgb 8.4 L (13.7-17.5) gm/dl Hct 26.4 L (40.1-51.0) % MCV 96.0 H D (79.0-92.2) fl MCH 30.5 (25.7-32.2) pg MCHC 31.8 L (32.2-35.5) g/dl RDW Std Deviation 51.4 H (35.1-43.9) fL Plt Count 188 D (163-337) K/mm3 MPV 9.3 L (9.4-12.3) fl Neutrophils % (Manual) 78 H (40-60) % Band Neutrophils % 0 (0-10) % Lymphocytes % (Manual) 11 L (20-40) % Atypical Lymphs % 0 % Monocytes % (Manual) 8 (2-10) % Eosinophils % (Manual) 2 (0.8-7.0) % Basophils % (Manual) 1 (0.2-1.2) Platelet Estimate Adequate Anisocytosis 1+ slight Macrocytosis 1+ slight Ovalocytes 1+ slight RBC Morph Comment Not Reportable ESR (0-15) mm/hr PT 11.1 (9.7-12.0) SECONDS INR 1.02 APTT 32 H (22-31) SECONDS Sodium (136-145) mEq/L Potassium (3.5-5.1) mEq/L Chloride (98-107) mEq/L Carbon Dioxide (21-32) mEq/L Anion Gap (5-15) BUN (7-18) mg/dL Creatinine (0.7-1.3) mg/dL Est Cr Clr Drug Dosing mL/min Estimated GFR (MDRD) (>60) mL/min BUN/Creatinine Ratio (14-18) Glucose (74-106) mg/dL Calcium (8.5-10.1) mg/dL Magnesium (1.8-2.4) mg/dl Total Bilirubin (0.2-1.0) mg/dL AST (15-37) U/L ALT (16-63) U/L Alkaline Phosphatase (46-116) U/L C-Reactive Protein (<1.0) mg/dL NT-Pro-B Natriuret Pep (0-125) pg/mL Total Protein (6.4-8.2) g/dl Albumin (3.4-5.0) g/dl Globulin gm/dL Albumin/Globulin Ratio (1-2) Lipase (73-393) U/L PSA Screen (0.0-4.0) ng/mL Urine Color (Yellow) Urine Appearance (Clear) Urine pH (5.0-8.0) Ur Specific [place] (1.005-1.030) Urine Protein (Negative) Urine Glucose (UA) (Negative) Urine Ketones (Negative) Urine Occult Blood (Negative) Urine Nitrite (Negative) Urine Bilirubin (Negative) Urine Urobilinogen (0.2-1.0) Ur Leukocyte Esterase (Negative) Urine RBC (0-5) /hpf Urine WBC (0-5) /hpf Ur Squamous Epith Cells (0-5) /hpf Urine Bacteria (FEW) /hpf Urine Mucus (FEW) /hpf SARS Virus RNA (PCR) Negative (NEGATIVE) 11/27/19 11/27/19 11/27/19 Range/Units 15:10 15:10 15:10 WBC (4.23-9.07) K/mm3 RBC (4.63-6.08) M/mm3 Hgb (13.7-17.5) gm/dl Hct (40.1-51.0) % MCV (79.0-92.2) fl MCH (25.7-32.2) pg MCHC (32.2-35.5) g/dl RDW Std Deviation (35.1-43.9) fL Plt Count (163-337) K/mm3 MPV (9.4-12.3) fl Neutrophils % (Manual) (40-60) % Band Neutrophils % (0-10) % Lymphocytes % (Manual) (20-40) % Atypical Lymphs % % Monocytes % (Manual) (2-10) % Eosinophils % (Manual) (0.8-7.0) % Basophils % (Manual) (0.2-1.2) Platelet Estimate Anisocytosis Macrocytosis Ovalocytes RBC Morph Comment ESR 78 H (0-15) mm/hr PT (9.7-12.0) SECONDS INR APTT (22-31) SECONDS Sodium 137 (136-145) mEq/L Potassium 4.0 (3.5-5.1) mEq/L Chloride 105 (98-107) mEq/L Carbon Dioxide 21 (21-32) mEq/L Anion Gap 15.0 (5-15) BUN 38 H (7-18) mg/dL Creatinine 1.8 H (0.7-1.3) mg/dL Est Cr Clr Drug Dosing 44.55 mL/min Estimated GFR (MDRD) 40 (>60) mL/min BUN/Creatinine Ratio 21.1 H (14-18) Glucose 98 (74-106) mg/dL Calcium 8.2 L (8.5-10.1) mg/dL Magnesium 1.4 L (1.8-2.4) mg/dl Total Bilirubin 0.6 (0.2-1.0) mg/dL AST 27 (15-37) U/L ALT 16 (16-63) U/L Alkaline Phosphatase 173 H (46-116) U/L C-Reactive Protein 15.5 H* (<1.0) mg/dL NT-Pro-B Natriuret Pep 390 H (0-125) pg/mL Total Protein 7.3 (6.4-8.2) g/dl Albumin 3.0 L (3.4-5.0) g/dl Globulin 4.3 gm/dL Albumin/Globulin Ratio 0.7 L (1-2) Lipase 87 (73-393) U/L PSA Screen (0.0-4.0) ng/mL Urine Color (Yellow) Urine Appearance (Clear) Urine pH (5.0-8.0) Ur Specific [place] (1.005-1.030) Urine Protein (Negative) Urine Glucose (UA) (Negative) Urine Ketones (Negative) Urine Occult Blood (Negative) Urine Nitrite (Negative) Urine Bilirubin (Negative) Urine Urobilinogen (0.2-1.0) Ur Leukocyte Esterase (Negative) Urine RBC (0-5) /hpf Urine WBC (0-5) /hpf Ur Squamous Epith Cells (0-5) /hpf Urine Bacteria (FEW) /hpf Urine Mucus (FEW) /hpf SARS Virus RNA (PCR) (NEGATIVE) 11/27/19 11/27/19 Range/Units 15:10 17:40 WBC (4.23-9.07) K/mm3 RBC (4.63-6.08) M/mm3 Hgb (13.7-17.5) gm/dl Hct (40.1-51.0) % MCV (79.0-92.2) fl MCH (25.7-32.2) pg MCHC (32.2-35.5) g/dl RDW Std Deviation (35.1-43.9) fL Plt Count (163-337) K/mm3 MPV (9.4-12.3) fl Neutrophils % (Manual) (40-60) % Band Neutrophils % (0-10) % Lymphocytes % (Manual) (20-40) % Atypical Lymphs % % Monocytes % (Manual) (2-10) % Eosinophils % (Manual) (0.8-7.0) % Basophils % (Manual) (0.2-1.2) Platelet Estimate Anisocytosis Macrocytosis Ovalocytes RBC Morph Comment ESR (0-15) mm/hr PT (9.7-12.0) SECONDS INR APTT (22-31) SECONDS Sodium (136-145) mEq/L Potassium (3.5-5.1) mEq/L Chloride (98-107) mEq/L Carbon Dioxide (21-32) mEq/L Anion Gap (5-15) BUN (7-18) mg/dL Creatinine (0.7-1.3) mg/dL Est Cr Clr Drug Dosing mL/min Estimated GFR (MDRD) (>60) mL/min BUN/Creatinine Ratio (14-18) Glucose (74-106) mg/dL Calcium (8.5-10.1) mg/dL Magnesium (1.8-2.4) mg/dl Total Bilirubin (0.2-1.0) mg/dL AST (15-37) U/L ALT (16-63) U/L Alkaline Phosphatase (46-116) U/L C-Reactive Protein (<1.0) mg/dL NT-Pro-B Natriuret Pep (0-125) pg/mL Total Protein (6.4-8.2) g/dl Albumin (3.4-5.0) g/dl Globulin gm/dL Albumin/Globulin Ratio (1-2) Lipase (73-393) U/L PSA Screen 0.8 (0.0-4.0) ng/mL Urine Color Yellow (Yellow) Urine Appearance Slt cloudy H (Clear) Urine pH 6.0 (5.0-8.0) Ur Specific [place] 1.025 (1.005-1.030) Urine Protein 1+ H (Negative) Urine Glucose (UA) Negative (Negative) Urine Ketones Negative (Negative) Urine Occult Blood 1+ H (Negative) Urine Nitrite Negative (Negative) Urine Bilirubin Negative (Negative) Urine Urobilinogen 1.0 (0.2-1.0) Ur Leukocyte Esterase 2+ H (Negative) Urine RBC 0-5 (0-5) /hpf Urine WBC 40-50 H (0-5) /hpf Ur Squamous Epith Cells 0-5 (0-5) /hpf Urine Bacteria Many H (FEW) /hpf Urine Mucus Few (FEW) /hpf SARS Virus RNA (PCR) (NEGATIVE) Result Diagrams: 11/27/19 15:10 11/27/19 15:10 Sepsis Event Note - Evaluation Sepsis Screening Result: No Definite Risk - Focused Exam Vital Signs: Vital Signs Temp Pulse Resp BP Pulse Ox 11/27/19 19:31 97.3 F 61 16 116/76 99 11/27/19 14:27 98.3 F 76 13 131/83 100 Date Exam was Performed: 11/27/19 Time Exam was Performed: 20:40 - Problem List (1) Prostatitis, acute SNOMED Code(s): 35526293 ICD Code: N41.0 - ACUTE PROSTATITIS Status: Acute Current Visit: Yes (2) Acute kidney injury SNOMED Code(s): 00652732, 54794749 ICD Code: N17.9 - ACUTE KIDNEY FAILURE, UNSPECIFIED Status: Acute Current Visit: Yes (3) Urinary retention with incomplete bladder emptying SNOMED Code(s): 413016304 ICD Code: R33.9 - RETENTION OF URINE, UNSPECIFIED Status: Acute Current Visit: Yes (4) Hypomagnesemia SNOMED Code(s): 406850190 ICD Code: E83.42 - HYPOMAGNESEMIA Status: Chronic Current Visit: No (5) Anemia SNOMED Code(s): 654917986 ICD Code: D64.9 - ANEMIA, UNSPECIFIED Status: Chronic Current Visit: No Qualifiers: Anemia type: other cause Problem List Initiated/Reviewed/Updated: Yes Orders Last 24hrs: Active Orders 24 hr Category Date Time Status Admission Status [Patient Status] [ADT] Routine ADT 11/27/19 18:22 Active Bladder Scan [RC] ASDIRECTED Care 11/27/19 18:26 Active EKG Documentation Completion [RC] STAT Care 11/27/19 14:44 Active Influenza Vaccine Charge [RC] .DISCHARGE Care 11/27/19 19:42 Active Insert Ortiz Catheter [Insert Urinary Catheter] [OM.PC] Care 11/27/19 19:00 Ordered Q24H Oxygen Therapy [RC] PRN Care 11/27/19 20:24 Ordered Up With Assistance [RC] ASDIRECTED Care 11/27/19 20:29 Ordered Urinary Catheter Assessment [RC] ASDIRECTED Care 11/27/19 19:00 Active VTE/DVT Education [RC] PER UNIT ROUTINE Care 11/27/19 20:24 Ordered Vital Signs [RC] Q4H Care 11/27/19 20:24 Ordered Regular Diet [DIET] Diet 11/28/19 Breakfast Ordered C-REACTIVE PROTEIN [CHEM] AM Lab 11/28/19 05:11 Ordered C-REACTIVE PROTEIN [CHEM] AM Lab 11/29/19 05:11 Ordered C-REACTIVE PROTEIN [CHEM] AM Lab 11/30/19 05:11 Ordered CBC WITH AUTO DIFF [HEME] AM Lab 11/28/19 05:11 Ordered CBC WITH AUTO DIFF [HEME] AM Lab 11/29/19 05:11 Ordered CBC WITH AUTO DIFF [HEME] AM Lab 11/30/19 05:11 Ordered COMPREHENSIVE METABOLIC PN,CMP [CHEM] AM Lab 11/28/19 05:11 Ordered COMPREHENSIVE METABOLIC PN,CMP [CHEM] AM Lab 11/29/19 05:11 Ordered COMPREHENSIVE METABOLIC PN,CMP [CHEM] AM Lab 11/30/19 05:11 Ordered CULTURE BLOOD [BC] Stat Lab 11/27/19 15:10 Received CULTURE BLOOD [BC] Stat Lab 11/27/19 15:20 Received CULTURE URINE [RM] Stat Lab 11/27/19 17:40 Received MAGNESIUM [CHEM] AM Lab 11/28/19 05:11 Ordered MAGNESIUM [CHEM] AM Lab 11/29/19 05:11 Ordered MAGNESIUM [CHEM] AM Lab 11/30/19 05:11 Ordered Acetaminophen [Tylenol] Med 11/27/19 20:29 Ordered 650 mg PO Q4H PRN Acetaminophen/HYDROcodone [Lapel 325-5 MG] Med 11/27/19 20:29 Ordered 1 tab PO Q4H PRN Calcium Carbonate [Tums] Med 11/27/19 21:00 Ordered 400 mg PO BID Enoxaparin [Lovenox] Med 11/28/19 09:00 Ordered 40 mg SUBCUT DAILY FLU Vacc [id number](6MOS+)/PF [Fluzone Quad Med 11/28/19 09:00 Once Syringe] 60 mcg IM .ONCE ONE Folic Acid/Vitamin B Comp W-C Med 11/28/19 09:00 Ordered 1 mg PO DAILY Furosemide [Lasix] Med 11/27/19 21:00 Ordered 80 mg PO TID Gabapentin [Neurontin] Med 11/27/19 21:00 Ordered 300 mg PO BID Iron Polysaccharides Complex [Ferrex 150] Med 11/27/19 21:00 Ordered 150 mg PO BID Lactated Ringers [Ringers, Lactated] 1,000 ml Med 11/27/19 18:45 Active IV ASDIRECTED Lactated Ringers [Ringers, Lactated] 1,000 ml Med 11/27/19 20:30 Ordered IV ASDIRECTED Levothyroxine Med 11/28/19 06:00 Ordered 25 mcg PO ACBREAKFAST Magnesium Oxide [Magnesium] Med 11/27/19 21:00 Ordered 400 mg PO BID Magnesium Sulfate/Water [Magnesium Sulfate in Water Med 11/27/19 20:06 Active Premix] 4 gm Premix Bag 1 bag IV ONETIME Ondansetron [Zofran ODT] Med 11/27/19 20:29 Ordered 4 mg PO Q4H PRN Orphenadrine [Norflex] Med 11/27/19 20:36 Ordered 100 mg PO BID PRN cefTRIAXone [Rocephin] 2 gm Med 11/27/19 18:30 Active Sodium Chloride 0.9% [Normal Saline] 100 ml IV Q24H Blood Culture x2 Reflex Set [OM.PC] Stat Oth 11/27/19 14:44 Ordered Resuscitation Status Routine Resus Stat 11/27/19 20:23 Ordered Medication Orders Acetaminophen (Tylenol) 650 mg PO Q4H PRN PRN Reason: Pain (Mild 1-3)/fever Hydrocodone Bitart/Acetaminophen (Lapel 325-5 Mg) 1 tab PO Q4H PRN PRN Reason: Pain (moderate 4-6) Calcium Carbonate/Glycine (Tums) 400 mg PO BID MARLENI Enoxaparin Sodium (Lovenox) 40 mg SUBCUT DAILY MARLENI Furosemide (Lasix) 80 mg PO TID MARLENI Gabapentin (Neurontin) 300 mg PO BID MARLENI Ceftriaxone Sodium 2 gm/ (Sodium Chloride) 100 mls @ 200 mls/hr IV Q24H MARLENI Last Admin: 11/27/19 18:48 Dose: 200 mls/hr Lactated Ringer's (Ringers, Lactated) 1,000 mls @ 125 mls/hr IV ASDIRECTED [facility] Last Admin: 11/27/19 18:48 Dose: 125 mls/hr Magnesium Sulfate 4 gm/ Premix 50 mls @ 12.5 mls/hr IV ONETIME ONE Stop: 11/28/19 00:05 Lactated Ringer's (Ringers, Lactated) 1,000 mls @ 75 mls/hr IV ASDIRECTED [facility] Influenza Virus Vaccine (Fluzone Quad Syringe) 60 mcg IM .ONCE ONE Stop: 11/28/19 09:01 Levothyroxine Sodium (Levothyroxine) 25 mcg PO ACBREAKFAST [facility] Non-Formulary Medication (Folic Acid/Vitamin B Comp W-C) 1 mg PO DAILY [facility] Non-Formulary Medication (Magnesium Oxide [Magnesium]) 400 mg PO BID [facility] Ondansetron HCl (Zofran Odt) 4 mg PO Q4H PRN PRN Reason: nausea, able to take PO Orphenadrine Citrate (Norflex) 100 mg PO BID PRN PRN Reason: Muscle Spasm Polysaccharide Iron Complex (Ferrex 150) 150 mg PO BID [facility] Assessment/Plan Comment:: UTI with acute prostatitis * Patient complains of dysuria with increased frequency for 1 month. * No history of prostate disease in the past * Reported fever of 104 at home Plan * Admit to the floor for IV antibiotics * Rocephin 2 g IV every 24 hours * Urine and blood cultures Urinary retention secondary to prostatitis * Ortiz catheter placed in the emergency department secondary to retention Plan * Continue Ortiz overnight * Start Flomax Acute kidney injury * Estimated GFR 40 * Creatinine increased from 1.5-1.8 in the last year. Unknown if this is a significant acute increase versus chronic renal insufficiency. * Likely worsened secondary to prerenal disease Plan * Cautious rehydration * Avoid nephrotoxic agents especially NSAIDs * Follow kidney function daily Acute on chronic hypomagnesemia * Magnesium 1.4 * Home meds include magnesium oxide 400 mg twice daily Plan * Continue home magnesium * Give 4 g IV magnesium * Follow daily Congestive heart failure * History of congestive heart failure * On Lasix 80 mg 3 times daily Plan * Cautious rehydration * Continue home meds * Follow daily weights and I's and O's URI * Patient states he has had a dry cough for a week, shortness of breath, and a sore throat * COVID testing negative in the emergency department * SPO2 100% on room air Plan * Continue to monitor * Treat symptoms if indicated Chronic anemia * Long history of anemia verified by labs at our institution back to 2017 * Hemoglobin 8.4 * Likely partially secondary to history of alcoholism and anemia of chronic disease * He is on home iron Plan * Continue home iron * Monitor CBC daily * If hemoglobin drops below 7 will transfuse Chronic medical problems include * Rheumatoid arthritis, gout, osteoarthritis, hypothyroidism, alcoholism, hypertension, GI bleed, heart murmur Plan * Continue home meds and monitor closely VTE prophylaxis with Lovenox CODE STATUS: Full code Disposition: Admit to floor for IV antibiotics with plan of discharge to home in 2 to 3 days. - Mortality Measure Prognosis:: Good
[2019-11-27] MEDS: Magnesium Oxide 400 MG Tab PO SCH (21:02)
[2019-11-27] MEDS: Iron Polysaccharides Complex 150 MG Cap PO SCH (21:02)
[2019-11-27] MEDS: Furosemide 80 MG Tab PO SCH (21:02)
[2019-11-27] MEDS: Gabapentin 300 MG Cap PO SCH (21:02)
[2019-11-27] MEDS: Calcium Carbonate 500 MG Tab.Chew PO SCH (21:02)
[2019-11-27] MEDS: Tamsulosin 0.4 MG Cap.ER PO SCH (21:29)
[2019-11-27] MEDS: Temazepam 15 MG Cap PO PRN (21:29)
[2019-11-28] MEDS: Levothyroxine 25 MCG Tab PO SCH (06:36)
--- NOTE | 2019-11-28 08:33 | PCM.PN ---
- General Info Date of Service: 11/28/19 Admission Dx/Problem (Free Text): Admission Diagnosis/Problem Admission Diagnosis/Problem Upper urinary tract infection Subjective Update: Patient states that his pain has improved. He denies any shortness of breath or cough this morning. Afebrile overnight. Functional Status: Reports: Pain Controlled - Review of Systems General: Reports: No Symptoms HEENT: Reports: No Symptoms Pulmonary: Reports: No Symptoms Cardiovascular: Reports: No Symptoms Gastrointestinal: Reports: No Symptoms Musculoskeletal: Reports: No Symptoms - Patient Data Vitals - Most Recent: Last Vital Signs Temp 97.9 F 11/28/19 03:00 Pulse 57 L 11/28/19 03:00 Resp 16 11/28/19 03:00 BP 120/68 11/28/19 03:00 Pulse Ox 100 11/28/19 03:00 Weight - Most Recent: 146 lb 12.8 oz I&O - Last 24 Hours: Intake & Output 11/27/19 11/28/19 11/28/19 22:59 06:59 14:59 Intake Total 1300 Output Total 1550 Balance -250 Lab Results Last 24 Hours: Laboratory Results - last 24 hr 11/27/19 11/27/19 11/27/19 Range/Units 14:46 15:10 15:10 WBC 7.18 (4.23-9.07) K/mm3 RBC 2.75 L (4.63-6.08) M/mm3 Hgb 8.4 L (13.7-17.5) gm/dl Hct 26.4 L (40.1-51.0) % MCV 96.0 H D (79.0-92.2) fl MCH 30.5 (25.7-32.2) pg MCHC 31.8 L (32.2-35.5) g/dl RDW Std Deviation 51.4 H (35.1-43.9) fL Plt Count 188 D (163-337) K/mm3 MPV 9.3 L (9.4-12.3) fl Neut % (Auto) (34.0-67.9) % Lymph % (Auto) (21.8-53.1) % [place] % (Auto) (5.3-12.2) % Eos % (Auto) (0.8-7.0) Baso % (Auto) (0.1-1.2) % Neut # (Auto) (1.78-5.38) K/mm3 Lymph # (Auto) (1.32-3.57) K/mm3 [place] # (Auto) (0.30-0.82) K/mm3 Eos # (Auto) (0.04-0.54) K/mm3 Baso # (Auto) (0.01-0.08) K/mm3 Neutrophils % (Manual) 78 H (40-60) % Band Neutrophils % 0 (0-10) % Lymphocytes % (Manual) 11 L (20-40) % Atypical Lymphs % 0 % Monocytes % (Manual) 8 (2-10) % Eosinophils % (Manual) 2 (0.8-7.0) % Basophils % (Manual) 1 (0.2-1.2) Platelet Estimate Adequate Anisocytosis 1+ slight Macrocytosis 1+ slight Ovalocytes 1+ slight RBC Morph Comment Not Reportable ESR (0-15) mm/hr PT 11.1 (9.7-12.0) SECONDS INR 1.02 APTT 32 H (22-31) SECONDS Sodium (136-145) mEq/L Potassium (3.5-5.1) mEq/L Chloride (98-107) mEq/L Carbon Dioxide (21-32) mEq/L Anion Gap (5-15) BUN (7-18) mg/dL Creatinine (0.7-1.3) mg/dL Est Cr Clr Drug Dosing mL/min Estimated GFR (MDRD) (>60) mL/min BUN/Creatinine Ratio (14-18) Glucose (74-106) mg/dL Calcium (8.5-10.1) mg/dL Magnesium (1.8-2.4) mg/dl Total Bilirubin (0.2-1.0) mg/dL AST (15-37) U/L ALT (16-63) U/L Alkaline Phosphatase (46-116) U/L C-Reactive Protein (<1.0) mg/dL NT-Pro-B Natriuret Pep (0-125) pg/mL Total Protein (6.4-8.2) g/dl Albumin (3.4-5.0) g/dl Globulin gm/dL Albumin/Globulin Ratio (1-2) Lipase (73-393) U/L PSA Screen (0.0-4.0) ng/mL Urine Color (Yellow) Urine Appearance (Clear) Urine pH (5.0-8.0) Ur Specific [place] (1.005-1.030) Urine Protein (Negative) Urine Glucose (UA) (Negative) Urine Ketones (Negative) Urine Occult Blood (Negative) Urine Nitrite (Negative) Urine Bilirubin (Negative) Urine Urobilinogen (0.2-1.0) Ur Leukocyte Esterase (Negative) Urine RBC (0-5) /hpf Urine WBC (0-5) /hpf Ur Squamous Epith Cells (0-5) /hpf Urine Bacteria (FEW) /hpf Urine Mucus (FEW) /hpf SARS Virus RNA (PCR) Negative (NEGATIVE) 11/27/19 11/27/19 11/27/19 Range/Units 15:10 15:10 15:10 WBC (4.23-9.07) K/mm3 RBC (4.63-6.08) M/mm3 Hgb (13.7-17.5) gm/dl Hct (40.1-51.0) % MCV (79.0-92.2) fl MCH (25.7-32.2) pg MCHC (32.2-35.5) g/dl RDW Std Deviation (35.1-43.9) fL Plt Count (163-337) K/mm3 MPV (9.4-12.3) fl Neut % (Auto) (34.0-67.9) % Lymph % (Auto) (21.8-53.1) % [place] % (Auto) (5.3-12.2) % Eos % (Auto) (0.8-7.0) Baso % (Auto) (0.1-1.2) % Neut # (Auto) (1.78-5.38) K/mm3 Lymph # (Auto) (1.32-3.57) K/mm3 [place] # (Auto) (0.30-0.82) K/mm3 Eos # (Auto) (0.04-0.54) K/mm3 Baso # (Auto) (0.01-0.08) K/mm3 Neutrophils % (Manual) (40-60) % Band Neutrophils % (0-10) % Lymphocytes % (Manual) (20-40) % Atypical Lymphs % % Monocytes % (Manual) (2-10) % Eosinophils % (Manual) (0.8-7.0) % Basophils % (Manual) (0.2-1.2) Platelet Estimate Anisocytosis Macrocytosis Ovalocytes RBC Morph Comment ESR 78 H (0-15) mm/hr PT (9.7-12.0) SECONDS INR APTT (22-31) SECONDS Sodium 137 (136-145) mEq/L Potassium 4.0 (3.5-5.1) mEq/L Chloride 105 (98-107) mEq/L Carbon Dioxide 21 (21-32) mEq/L Anion Gap 15.0 (5-15) BUN 38 H (7-18) mg/dL Creatinine 1.8 H (0.7-1.3) mg/dL Est Cr Clr Drug Dosing 44.55 mL/min Estimated GFR (MDRD) 40 (>60) mL/min BUN/Creatinine Ratio 21.1 H (14-18) Glucose 98 (74-106) mg/dL Calcium 8.2 L (8.5-10.1) mg/dL Magnesium 1.4 L (1.8-2.4) mg/dl Total Bilirubin 0.6 (0.2-1.0) mg/dL AST 27 (15-37) U/L ALT 16 (16-63) U/L Alkaline Phosphatase 173 H (46-116) U/L C-Reactive Protein 15.5 H* (<1.0) mg/dL NT-Pro-B Natriuret Pep 390 H (0-125) pg/mL Total Protein 7.3 (6.4-8.2) g/dl Albumin 3.0 L (3.4-5.0) g/dl Globulin 4.3 gm/dL Albumin/Globulin Ratio 0.7 L (1-2) Lipase 87 (73-393) U/L PSA Screen (0.0-4.0) ng/mL Urine Color (Yellow) Urine Appearance (Clear) Urine pH (5.0-8.0) Ur Specific [place] (1.005-1.030) Urine Protein (Negative) Urine Glucose (UA) (Negative) Urine Ketones (Negative) Urine Occult Blood (Negative) Urine Nitrite (Negative) Urine Bilirubin (Negative) Urine Urobilinogen (0.2-1.0) Ur Leukocyte Esterase (Negative) Urine RBC (0-5) /hpf Urine WBC (0-5) /hpf Ur Squamous Epith Cells (0-5) /hpf Urine Bacteria (FEW) /hpf Urine Mucus (FEW) /hpf SARS Virus RNA (PCR) (NEGATIVE) 11/27/19 11/27/19 11/28/19 Range/Units 15:10 17:40 04:30 WBC 4.82 (4.23-9.07) K/mm3 RBC 2.68 L (4.63-6.08) M/mm3 Hgb 8.0 L (13.7-17.5) gm/dl Hct 25.7 L (40.1-51.0) % MCV 95.9 H (79.0-92.2) fl MCH 29.9 (25.7-32.2) pg MCHC 31.1 L (32.2-35.5) g/dl RDW Std Deviation 51.4 H (35.1-43.9) fL Plt Count 170 (163-337) K/mm3 MPV 9.4 (9.4-12.3) fl Neut % (Auto) 59.2 (34.0-67.9) % Lymph % (Auto) 20.1 L (21.8-53.1) % [place] % (Auto) 14.1 H (5.3-12.2) % Eos % (Auto) 6.0 (0.8-7.0) Baso % (Auto) 0.4 (0.1-1.2) % Neut # (Auto) 2.85 (1.78-5.38) K/mm3 Lymph # (Auto) 0.97 L (1.32-3.57) K/mm3 [place] # (Auto) 0.68 (0.30-0.82) K/mm3 Eos # (Auto) 0.29 (0.04-0.54) K/mm3 Baso # (Auto) 0.02 (0.01-0.08) K/mm3 Neutrophils % (Manual) (40-60) % Band Neutrophils % (0-10) % Lymphocytes % (Manual) (20-40) % Atypical Lymphs % % Monocytes % (Manual) (2-10) % Eosinophils % (Manual) (0.8-7.0) % Basophils % (Manual) (0.2-1.2) Platelet Estimate Anisocytosis Macrocytosis Ovalocytes RBC Morph Comment ESR (0-15) mm/hr PT (9.7-12.0) SECONDS INR APTT (22-31) SECONDS Sodium (136-145) mEq/L Potassium (3.5-5.1) mEq/L Chloride (98-107) mEq/L Carbon Dioxide (21-32) mEq/L Anion Gap (5-15) BUN (7-18) mg/dL Creatinine (0.7-1.3) mg/dL Est Cr Clr Drug Dosing mL/min Estimated GFR (MDRD) (>60) mL/min BUN/Creatinine Ratio (14-18) Glucose (74-106) mg/dL Calcium (8.5-10.1) mg/dL Magnesium (1.8-2.4) mg/dl Total Bilirubin (0.2-1.0) mg/dL AST (15-37) U/L ALT (16-63) U/L Alkaline Phosphatase (46-116) U/L C-Reactive Protein (<1.0) mg/dL NT-Pro-B Natriuret Pep (0-125) pg/mL Total Protein (6.4-8.2) g/dl Albumin (3.4-5.0) g/dl Globulin gm/dL Albumin/Globulin Ratio (1-2) Lipase (73-393) U/L PSA Screen 0.8 (0.0-4.0) ng/mL Urine Color Yellow (Yellow) Urine Appearance Slt cloudy H (Clear) Urine pH 6.0 (5.0-8.0) Ur Specific [place] 1.025 (1.005-1.030) Urine Protein 1+ H (Negative) Urine Glucose (UA) Negative (Negative) Urine Ketones Negative (Negative) Urine Occult Blood 1+ H (Negative) Urine Nitrite Negative (Negative) Urine Bilirubin Negative (Negative) Urine Urobilinogen 1.0 (0.2-1.0) Ur Leukocyte Esterase 2+ H (Negative) Urine RBC 0-5 (0-5) /hpf Urine WBC 40-50 H (0-5) /hpf Ur Squamous Epith Cells 0-5 (0-5) /hpf Urine Bacteria Many H (FEW) /hpf Urine Mucus Few (FEW) /hpf SARS Virus RNA (PCR) (NEGATIVE) 11/28/19 Range/Units 04:30 WBC (4.23-9.07) K/mm3 RBC (4.63-6.08) M/mm3 Hgb (13.7-17.5) gm/dl Hct (40.1-51.0) % MCV (79.0-92.2) fl MCH (25.7-32.2) pg MCHC (32.2-35.5) g/dl RDW Std Deviation (35.1-43.9) fL Plt Count (163-337) K/mm3 MPV (9.4-12.3) fl Neut % (Auto) (34.0-67.9) % Lymph % (Auto) (21.8-53.1) % [place] % (Auto) (5.3-12.2) % Eos % (Auto) (0.8-7.0) Baso % (Auto) (0.1-1.2) % Neut # (Auto) (1.78-5.38) K/mm3 Lymph # (Auto) (1.32-3.57) K/mm3 [place] # (Auto) (0.30-0.82) K/mm3 Eos # (Auto) (0.04-0.54) K/mm3 Baso # (Auto) (0.01-0.08) K/mm3 Neutrophils % (Manual) (40-60) % Band Neutrophils % (0-10) % Lymphocytes % (Manual) (20-40) % Atypical Lymphs % % Monocytes % (Manual) (2-10) % Eosinophils % (Manual) (0.8-7.0) % Basophils % (Manual) (0.2-1.2) Platelet Estimate Anisocytosis Macrocytosis Ovalocytes RBC Morph Comment ESR (0-15) mm/hr PT (9.7-12.0) SECONDS INR APTT (22-31) SECONDS Sodium 140 (136-145) mEq/L Potassium 3.8 (3.5-5.1) mEq/L Chloride 107 (98-107) mEq/L Carbon Dioxide 23 (21-32) mEq/L Anion Gap 13.8 (5-15) BUN 32 H (7-18) mg/dL Creatinine 1.6 H (0.7-1.3) mg/dL Est Cr Clr Drug Dosing 49.71 mL/min Estimated GFR (MDRD) 45 (>60) mL/min BUN/Creatinine Ratio 20.0 H (14-18) Glucose 140 H (74-106) mg/dL Calcium 8.2 L (8.5-10.1) mg/dL Magnesium 2.2 (1.8-2.4) mg/dl Total Bilirubin 0.3 (0.2-1.0) mg/dL AST 24 (15-37) U/L ALT 15 L (16-63) U/L Alkaline Phosphatase 152 H (46-116) U/L C-Reactive Protein 11.6 H* (<1.0) mg/dL NT-Pro-B Natriuret Pep (0-125) pg/mL Total Protein 6.3 L (6.4-8.2) g/dl Albumin 2.5 L (3.4-5.0) g/dl Globulin 3.8 gm/dL Albumin/Globulin Ratio 0.7 L (1-2) Lipase (73-393) U/L PSA Screen (0.0-4.0) ng/mL Urine Color (Yellow) Urine Appearance (Clear) Urine pH (5.0-8.0) Ur Specific [place] (1.005-1.030) Urine Protein (Negative) Urine Glucose (UA) (Negative) Urine Ketones (Negative) Urine Occult Blood (Negative) Urine Nitrite (Negative) Urine Bilirubin (Negative) Urine Urobilinogen (0.2-1.0) Ur Leukocyte Esterase (Negative) Urine RBC (0-5) /hpf Urine WBC (0-5) /hpf Ur Squamous Epith Cells (0-5) /hpf Urine Bacteria (FEW) /hpf Urine Mucus (FEW) /hpf SARS Virus RNA (PCR) (NEGATIVE) Med Orders - Current: Current Medications Acetaminophen (Tylenol) 650 mg PO Q4H PRN PRN Reason: Pain (Mild 1-3)/fever Hydrocodone Bitart/Acetaminophen (Colgate 325-5 Mg) 1 tab PO Q4H PRN PRN Reason: Pain (moderate 4-6) Calcium Carbonate/Glycine (Tums) 1,000 mg PO BID [facility] Last Admin: 11/27/19 21:02 Dose: 1,000 mg Enoxaparin Sodium (Lovenox) 40 mg SUBCUT DAILY [facility] Furosemide (Lasix) 80 mg PO TID [facility] Last Admin: 11/27/19 21:02 Dose: 80 mg Gabapentin (Neurontin) 300 mg PO BID [facility] Last Admin: 11/27/19 21:02 Dose: 300 mg Ceftriaxone Sodium 2 gm/ (Sodium Chloride) 100 mls @ 200 mls/hr IV Q24H [facility] Last Admin: 11/27/19 18:48 Dose: 200 mls/hr Lactated Ringer's (Ringers, Lactated) 1,000 mls @ 75 mls/hr IV ASDIRECTED [facility] Last Admin: 11/28/19 02:55 Dose: 75 mls/hr Influenza Virus Vaccine (Fluzone Quad [id number] Syringe) 60 mcg IM .ONCE ONE Stop: 11/28/19 09:01 Levothyroxine Sodium (Levothyroxine) 25 mcg PO ACBREAKFAST [facility] Last Admin: 11/28/19 06:36 Dose: 25 mcg Magnesium Oxide (Magnesium Oxide) 400 mg PO BID [facility] Last Admin: 11/27/19 21:02 Dose: 400 mg Ondansetron HCl (Zofran Odt) 4 mg PO Q4H PRN PRN Reason: nausea, able to take PO Orphenadrine Citrate (Norflex) 100 mg PO BID PRN PRN Reason: Muscle Spasm Polysaccharide Iron Complex (Ferrex 150) 150 mg PO BID [facility] Last Admin: 11/27/19 21:02 Dose: 150 mg Tamsulosin HCl (Flomax) 0.4 mg PO BEDTIME [facility] Last Admin: 11/27/19 21:29 Dose: 0.4 mg Temazepam (Restoril) 15 mg PO BEDTIME PRN PRN Reason: Sleep Last Admin: 11/27/19 21:29 Dose: 15 mg Discontinued Medications Acetaminophen (Tylenol) 975 mg PO NOW ONE Stop: 11/27/19 14:44 Last Admin: 11/27/19 15:46 Dose: 975 mg Dextrose/Sodium Chloride (Dextrose 5%-Normal Saline) 1,000 mls @ 999 mls/hr IV ASDIRECTED [facility] Last Admin: 11/27/19 15:41 Dose: 999 mls/hr Lactated Ringer's (Ringers, Lactated) 1,000 mls @ 125 mls/hr IV ASDIRECTED [facility] Last Admin: 11/27/19 18:48 Dose: 125 mls/hr Magnesium Sulfate 4 gm/ Premix 50 mls @ 12.5 mls/hr IV ONETIME ONE Stop: 11/28/19 00:05 Last Admin: 11/27/19 21:01 Dose: 12.5 mls/hr Influenza Virus Vaccine (Pharmacy To Dose - Influenza Vaccine) 1 each IM ONETIME ONE Stop: 11/27/19 19:43 Lidocaine HCl (Xylocaine 2% Jelly) 10 ml MUCMEM ONETIME ONE Stop: 11/27/19 18:59 Last Admin: 11/27/19 19:23 Dose: 10 ml Non-Formulary Medication (Folic Acid/Vitamin B Comp W-C) 1 mg PO DAILY MARLENI - Exam General: Alert, Oriented HEENT: Pupils Equal, Mucous Membr. Moist/R[place] Neck: Supple Lungs: Clear to Auscultation, Normal Respiratory Effort Cardiovascular: Regular Rate, Regular Rhythm GI/Abdominal Exam: Normal Bowel Sounds, Soft, Non-Tender (Right flank pain improved), No Organomegaly, No Distention, No Abnormal Bruit, No Mass, Pelvis Stable Extremities: Normal Inspection, Normal Range of Motion, Non-Tender, No Pedal Edema, Normal Capillary Refill Skin: Warm, Dry, Intact Neurological: No New Focal Deficit Psy/Mental Status: Alert, Normal Affect, Normal Mood Sepsis Event Note - Evaluation Sepsis Screening Result: No Definite Risk - Focused Exam Vital Signs: Vital Signs Temp Pulse Resp BP Pulse Ox 11/28/19 03:00 97.9 F 57 L 16 120/68 100 11/28/19 00:38 97.5 F 57 L 16 100/55 L 100 Date Exam was Performed: 11/28/19 Time Exam was Performed: 08:29 - Problem List & Annotations (1) Prostatitis, acute SNOMED Code(s): 83308225 Code(s): N41.0 - ACUTE PROSTATITIS Status: Acute Current Visit: Yes (2) Acute kidney injury SNOMED Code(s): 48834565, 52539574 Code(s): N17.9 - ACUTE KIDNEY FAILURE, UNSPECIFIED Status: Acute Current Visit: Yes (3) Urinary retention with incomplete bladder emptying SNOMED Code(s): 089207761 Code(s): R33.9 - RETENTION OF URINE, UNSPECIFIED Status: Acute Current Visit: Yes (4) Hypomagnesemia SNOMED Code(s): 074950191 Code(s): E83.42 - HYPOMAGNESEMIA Status: Chronic Current Visit: No (5) Anemia SNOMED Code(s): 841794617 Code(s): D64.9 - ANEMIA, UNSPECIFIED Status: Chronic Current Visit: No Qualifiers: Anemia type: other cause - Problem List Review Problem List Initiated/Reviewed/Updated: Yes - My Orders Last 24 Hours: My Active Orders 11/27/19 19:00 Insert Ortiz Catheter [Insert Urinary Catheter] [OM.PC] Q24H Urinary Catheter Assessment [RC] 04,10,16,22 11/27/19 19:42 Influenza Vaccine Charge [RC] DAILY 11/27/19 20:23 Resuscitation Status Routine 11/27/19 20:24 Oxygen Therapy [RC] PRN VTE/DVT Education [RC] BID Vital Signs [RC] Q4H 11/27/19 20:29 Up With Assistance [RC] ASDIRECTED Acetaminophen [Tylenol] 650 mg PO Q4H PRN Acetaminophen/HYDROcodone [Colgate 325-5 MG] 1 tab PO Q4H PRN Ondansetron [Zofran ODT] 4 mg PO Q4H PRN 11/27/19 20:30 Lactated Ringers [Ringers, Lactated] 1,000 ml IV ASDIRECTED 11/27/19 20:36 Orphenadrine [Norflex] 100 mg PO BID PRN 11/27/19 21:00 Calcium Carbonate [Tums] 1,000 mg PO BID Furosemide [Lasix] 80 mg PO TID Gabapentin [Neurontin] 300 mg PO BID Iron Polysaccharides Complex [Ferrex 150] 150 mg PO BID Magnesium Oxide 400 mg PO BID Tamsulosin [Flomax] 0.4 mg PO BEDTIME 11/27/19 21:19 Temazepam [Restoril] 15 mg PO BEDTIME PRN 11/28/19 06:00 Levothyroxine 25 mcg PO ACBREAKFAST 11/28/19 09:00 Enoxaparin [Lovenox] 40 mg SUBCUT DAILY FLU Vacc [id number](6MOS+)/PF [Fluzone Quad Syringe] 60 mcg IM .ONCE ONE 11/28/19 Breakfast Regular Diet [DIET] 11/29/19 05:11 C-REACTIVE PROTEIN [CHEM] AM CBC WITH AUTO DIFF [HEME] AM COMPREHENSIVE METABOLIC PN,CMP [CHEM] AM MAGNESIUM [CHEM] AM 11/30/19 05:11 C-REACTIVE PROTEIN [CHEM] AM CBC WITH AUTO DIFF [HEME] AM COMPREHENSIVE METABOLIC PN,CMP [CHEM] AM MAGNESIUM [CHEM] AM - Plan Plan:: UTI with acute prostatitis * Patient complains of dysuria with increased frequency for 1 month. * No history of prostate disease in the past * Reported fever of 104 at home * Afebrile during hospitalization Plan * Rocephin 2 g IV every 24 hours * Urine and blood cultures Urinary retention secondary to prostatitis * Ortiz catheter placed in the emergency department secondary to retention Plan * Continue Ortiz overnight * Start Flomax * Plan trial of removal of Ortiz tomorrow Acute kidney injury * Estimated GFR 40-->45 * Creatinine increased from 1.5-1.8 in the last year. Unknown if this is a significant acute increase versus chronic renal insufficiency. * Creatinine improved to 1.6 * Likely worsened secondary to prerenal disease Plan * Cautious rehydration * Avoid nephrotoxic agents especially NSAIDs * Follow kidney function daily Acute on chronic hypomagnesemia -normalized * Magnesium 1.4--> 2.2 * Home meds include magnesium oxide 400 mg twice daily Plan * Continue home magnesium * Follow daily Congestive heart failure * History of congestive heart failure * On Lasix 80 mg 3 times daily Plan * Cautious rehydration * Continue home meds * Follow daily weights and I's and O's URI * Patient states he has had a dry cough for a week, shortness of breath, and a sore throat * COVID testing negative in the emergency department * SPO2 100% on room air Plan * Continue to monitor * Treat symptoms if indicated Chronic anemia * Long history of anemia verified by labs at our institution back to 2017 * Hemoglobin 8.4--8.0 * Likely partially secondary to history of alcoholism and anemia of chronic disease * He is on home iron Plan * Continue home iron * Monitor CBC daily * If hemoglobin drops below 7 will transfuse Chronic medical problems include * Rheumatoid arthritis, gout, osteoarthritis, hypothyroidism, alcoholism, hypertension, GI bleed, heart murmur Plan * Continue home meds and monitor closely VTE prophylaxis with Lovenox CODE STATUS: Full code Disposition: Admit to floor for IV antibiotics with plan of discharge to home in 2 to 3 days.
[2019-11-28] MEDS: Enoxaparin 40 MG/0.4 ML Syringe SUBCUT SCH (08:34)
[2019-11-28] MEDS: Magnesium Oxide 400 MG Tab PO SCH ×2 (08:34→20:07)
[2019-11-28] MEDS: Iron Polysaccharides Complex 150 MG Cap PO SCH ×2 (08:34→20:06)
[2019-11-28] MEDS: Calcium Carbonate 500 MG Tab.Chew PO SCH ×2 (08:34→20:08)
[2019-11-28] MEDS: Gabapentin 300 MG Cap PO SCH ×2 (08:34→20:07)
[2019-11-28] MEDS: Furosemide 80 MG Tab PO SCH ×3 (08:34→20:07)
[2019-11-28] MEDS ORDERED: FOLIC ACID PO SCH (09:00)
[2019-11-28] MEDS ORDERED: VITAMIN B COMP W C PO SCH (09:00)
[2019-11-28] MEDS ORDERED: FLU Vacc QS2019-20(6MOS+)/PF 60 MCG/0.5 ML SYRINGE IM ONE (09:00)
[2019-11-28] MEDS: cefTRIAXone 2 GM in Sodium Chloride 0.9% 100 ML IV SCH (17:30)
[2019-11-28] MEDS: Tamsulosin 0.4 MG Cap.ER PO SCH (20:07)
[2019-11-28] MEDS: Temazepam 15 MG Cap PO PRN (20:07)
[2019-11-29] MEDS: Levothyroxine 25 MCG Tab PO SCH (05:06)
[2019-11-29] MEDS ORDERED: Magnesium Sulfate/Water 2 GM in Premix Bag 1 BAG IV ONE (07:44)
[2019-11-29] MEDS: Magnesium Oxide 400 MG Tab PO SCH ×2 (08:19→21:12)
[2019-11-29] MEDS: Enoxaparin 40 MG/0.4 ML Syringe SUBCUT SCH (08:19)
[2019-11-29] MEDS: Gabapentin 300 MG Cap PO SCH ×2 (08:19→21:12)
[2019-11-29] MEDS: Iron Polysaccharides Complex 150 MG Cap PO SCH ×2 (08:19→21:11)
[2019-11-29] MEDS: Calcium Carbonate 500 MG Tab.Chew PO SCH ×2 (08:19→21:12)
[2019-11-29] MEDS ORDERED: Meropenem 1 GM SDV IVPUSH SCH (09:15)
--- NOTE | 2019-11-29 09:21 | PCM.PN ---
- General Info Date of Service: 11/29/19 Admission Dx/Problem (Free Text): Admission Diagnosis/Problem Admission Diagnosis/Problem Upper urinary tract infection Subjective Update: Lilo continues to state he is feeling better. I asked him again about his Lasix dose. Initially he said it is how it is written on the bottle, but with further inquiry he states he is really only been taking it once a day. This corresponds with his worsening creatinine clearance overnight with taking the home dose of Lasix 80 mg 3 times daily. He has been afebrile. Functional Status: Reports: Pain Controlled - Review of Systems General: Reports: No Symptoms HEENT: Reports: No Symptoms Pulmonary: Reports: No Symptoms Cardiovascular: Reports: No Symptoms Gastrointestinal: Reports: No Symptoms Musculoskeletal: Reports: No Symptoms - Patient Data Vitals - Most Recent: Last Vital Signs Temp 97.7 F 11/29/19 08:00 Pulse 68 11/29/19 08:00 Resp 20 11/29/19 08:00 BP 105/63 11/29/19 08:00 Pulse Ox 97 11/29/19 08:00 Weight - Most Recent: 141 lb 8 oz I&O - Last 24 Hours: Intake & Output 11/28/19 11/29/19 11/29/19 22:59 06:59 14:59 Intake Total 1780 600 Output Total 3225 2000 Balance -1445 -1400 Lab Results Last 24 Hours: Laboratory Results - last 24 hr 11/29/19 11/29/19 Range/Units 05:19 05:19 WBC 5.92 (4.23-9.07) K/mm3 RBC 2.86 L (4.63-6.08) M/mm3 Hgb 8.7 L (13.7-17.5) gm/dl Hct 27.2 L (40.1-51.0) % MCV 95.1 H (79.0-92.2) fl MCH 30.4 (25.7-32.2) pg MCHC 32.0 L (32.2-35.5) g/dl RDW Std Deviation 50.4 H (35.1-43.9) fL Plt Count 217 (163-337) K/mm3 MPV 9.4 (9.4-12.3) fl Neut % (Auto) 52.5 (34.0-67.9) % Lymph % (Auto) 30.7 (21.8-53.1) % [place] % (Auto) 11.7 (5.3-12.2) % Eos % (Auto) 4.4 (0.8-7.0) Baso % (Auto) 0.2 (0.1-1.2) % Neut # (Auto) 3.11 (1.78-5.38) K/mm3 Lymph # (Auto) 1.82 (1.32-3.57) K/mm3 [place] # (Auto) 0.69 (0.30-0.82) K/mm3 Eos # (Auto) 0.26 (0.04-0.54) K/mm3 Baso # (Auto) 0.01 (0.01-0.08) K/mm3 Sodium 139 (136-145) mEq/L Potassium 4.3 (3.5-5.1) mEq/L Chloride 101 (98-107) mEq/L Carbon Dioxide 26 (21-32) mEq/L Anion Gap 16.3 H (5-15) BUN 40 H (7-18) mg/dL Creatinine 1.8 H (0.7-1.3) mg/dL Est Cr Clr Drug Dosing 42.59 mL/min Estimated GFR (MDRD) 40 (>60) mL/min BUN/Creatinine Ratio 22.2 H (14-18) Glucose 96 (74-106) mg/dL Calcium 8.8 (8.5-10.1) mg/dL Magnesium 1.6 L (1.8-2.4) mg/dl Total Bilirubin 0.3 (0.2-1.0) mg/dL AST 21 (15-37) U/L ALT 17 (16-63) U/L Alkaline Phosphatase 165 H (46-116) U/L C-Reactive Protein 11.5 H* (<1.0) mg/dL Total Protein 7.5 (6.4-8.2) g/dl Albumin 3.0 L (3.4-5.0) g/dl Globulin 4.5 gm/dL Albumin/Globulin Ratio 0.7 L (1-2) Talib Results Last 24 Hours: Microbiology 11/27/19 17:40 Urine Culture - Preliminary Urine, Bladder Escherichia Coli 11/27/19 15:20 Aerobic Blood Culture - Preliminary Blood - Venous - Lab Draw NO GROWTH AFTER 1 DAY Anaerobic Blood Culture - Preliminary NO GROWTH AFTER 1 DAY 11/27/19 15:10 Aerobic Blood Culture - Preliminary Blood - Venous NO GROWTH AFTER 1 DAY Anaerobic Blood Culture - Preliminary NO GROWTH AFTER 1 DAY Med Orders - Current: Current Medications Acetaminophen (Tylenol) 650 mg PO Q4H PRN PRN Reason: Pain (Mild 1-3)/fever Last Admin: 11/28/19 08:33 Dose: 650 mg Hydrocodone Bitart/Acetaminophen ([place] 325-5 Mg) 1 tab PO Q4H PRN PRN Reason: Pain (moderate 4-6) Calcium Carbonate/Glycine (Tums) 1,000 mg PO BID [facility] Last Admin: 11/29/19 08:19 Dose: 1,000 mg Enoxaparin Sodium (Lovenox) 40 mg SUBCUT DAILY [facility] Last Admin: 11/29/19 08:19 Dose: 40 mg Furosemide (Lasix) 40 mg PO BIDDIURETIC [facility] Gabapentin (Neurontin) 300 mg PO BID [facility] Last Admin: 11/29/19 08:19 Dose: 300 mg Dextrose/Sodium Chloride (Dextrose 5%-1/2 Ns) 1,000 mls @ 75 mls/hr IV ASDIRECTED [facility] Magnesium Sulfate 2 gm/ Premix 50 mls @ 25 mls/hr IV ONETIME ONE Stop: 11/29/19 09:43 Last Admin: 11/29/19 08:19 Dose: 25 mls/hr Levothyroxine Sodium (Levothyroxine) 25 mcg PO ACBREAKFAST [facility] Last Admin: 11/29/19 05:06 Dose: 25 mcg Magnesium Oxide (Magnesium Oxide) 400 mg PO BID [facility] Last Admin: 11/29/19 08:19 Dose: 400 mg Meropenem (Merrem) 1 gm IVPUSH Q8H [facility] Ondansetron HCl (Zofran Odt) 4 mg PO Q4H PRN PRN Reason: nausea, able to take PO Orphenadrine Citrate (Norflex) 100 mg PO BID PRN PRN Reason: Muscle Spasm Polysaccharide Iron Complex (Ferrex 150) 150 mg PO BID [facility] Last Admin: 11/29/19 08:19 Dose: 150 mg Tamsulosin HCl (Flomax) 0.4 mg PO BEDTIME [facility] Last Admin: 11/28/19 20:07 Dose: 0.4 mg Temazepam (Restoril) 15 mg PO BEDTIME PRN PRN Reason: Sleep Last Admin: 11/28/19 20:07 Dose: 15 mg Discontinued Medications Acetaminophen (Tylenol) 975 mg PO NOW ONE Stop: 11/27/19 14:44 Last Admin: 11/27/19 15:46 Dose: 975 mg Furosemide (Lasix) 80 mg PO TID [facility] Last Admin: 11/28/19 20:07 Dose: 80 mg Furosemide (Lasix) 80 mg PO BIDDIURETIC [facility] Dextrose/Sodium Chloride (Dextrose 5%-Normal Saline) 1,000 mls @ 999 mls/hr IV ASDIRECTED [facility] Last Admin: 11/27/19 15:41 Dose: 999 mls/hr Ceftriaxone Sodium 2 gm/ (Sodium Chloride) 100 mls @ 200 mls/hr IV Q24H [facility] Last Admin: 11/28/19 17:30 Dose: 200 mls/hr Lactated Ringer's (Ringers, Lactated) 1,000 mls @ 125 mls/hr IV ASDIRECTED [facility] Last Admin: 11/27/19 18:48 Dose: 125 mls/hr Magnesium Sulfate 4 gm/ Premix 50 mls @ 12.5 mls/hr IV ONETIME ONE Stop: 11/28/19 00:05 Last Admin: 11/27/19 21:01 Dose: 12.5 mls/hr Lactated Ringer's (Ringers, Lactated) 1,000 mls @ 75 mls/hr IV ASDIRECTED [facility] Last Admin: 11/28/19 02:55 Dose: 75 mls/hr Influenza Virus Vaccine (Pharmacy To Dose - Influenza Vaccine) 1 each IM ONETIME ONE Stop: 11/27/19 19:43 Influenza Virus Vaccine (Fluzone Quad [id number] Syringe) 60 mcg IM .ONCE ONE Stop: 11/28/19 09:01 Lidocaine HCl (Xylocaine 2% Jelly) 10 ml MUCMEM ONETIME ONE Stop: 11/27/19 18:59 Last Admin: 11/27/19 19:23 Dose: 10 ml Non-Formulary Medication (Folic Acid/Vitamin B Comp W-C) 1 mg PO DAILY [facility] - Exam General: Alert, Oriented HEENT: Pupils Equal, Pupils Reactive, EOMI, Mucous Membr. Moist/[place] Lungs: Clear to Auscultation, Normal Respiratory Effort Cardiovascular: Regular Rate, Regular Rhythm GI/Abdominal Exam: Normal Bowel Sounds, Soft, Non-Tender, No Organomegaly, No Distention, No Abnormal Bruit, No Mass Extremities: Normal Inspection, Normal Range of Motion, Non-Tender, No Pedal Edema, Normal Capillary Refill Skin: Warm, Dry, Intact Psy/Mental Status: Alert, Normal Affect, Normal Mood Sepsis Event Note - Evaluation Sepsis Screening Result: No Definite Risk - Focused Exam Vital Signs: Vital Signs Temp Pulse Resp BP Pulse Ox 11/29/19 08:00 97.7 F 68 20 105/63 97 11/29/19 05:05 98.4 F 76 16 94/70 98 11/29/19 01:05 97.5 F 73 16 99/63 99 Date Exam was Performed: 11/29/19 Time Exam was Performed: 09:27 - Problem List & Annotations (1) Prostatitis, acute SNOMED Code(s): 54346727 Code(s): N41.0 - ACUTE PROSTATITIS Status: Acute Current Visit: Yes (2) Acute kidney injury SNOMED Code(s): 89711108, 22097599 Code(s): N17.9 - ACUTE KIDNEY FAILURE, UNSPECIFIED Status: Acute Current Visit: Yes (3) Urinary retention with incomplete bladder emptying SNOMED Code(s): 988820798 Code(s): R33.9 - RETENTION OF URINE, UNSPECIFIED Status: Acute Current Visit: Yes (4) Hypomagnesemia SNOMED Code(s): 153146272 Code(s): E83.42 - HYPOMAGNESEMIA Status: Chronic Current Visit: No (5) Anemia SNOMED Code(s): 514887205 Code(s): D64.9 - ANEMIA, UNSPECIFIED Status: Chronic Current Visit: No Qualifiers: Anemia type: other cause - Problem List Review Problem List Initiated/Reviewed/Updated: Yes - My Orders Last 24 Hours: My Active Orders 11/28/19 09:00 Enoxaparin [Lovenox] 40 mg SUBCUT DAILY 11/29/19 07:30 Dextrose 5%-0.45% NaCl [Dextrose 5%-1/2 NS] 1,000 ml IV ASDIRECTED 11/29/19 07:44 Magnesium Sulfate/Water [Magnesium Sulfate in Water Premix] 2 gm Premix Bag 1 bag IV ONETIME 11/29/19 08:25 Urinary Catheter Removal [RC] Per Unit Routine 11/29/19 09:15 Meropenem [Merrem] 1 gm IVPUSH Q8H 11/30/19 05:11 C-REACTIVE PROTEIN [CHEM] AM CBC WITH AUTO DIFF [HEME] AM COMPREHENSIVE METABOLIC PN,CMP [CHEM] AM MAGNESIUM [CHEM] AM 11/30/19 07:46 Furosemide [Lasix] 40 mg PO BIDDIURETIC - Plan Plan:: UTI with acute prostatitis * Patient complains of dysuria with increased frequency for 1 month. * No history of prostate disease in the past * Reported fever of 104 at home * Afebrile during hospitalization * Microbiology called with concern for ESBL Plan * Change antibiotics to meropenem * Urine and blood cultures -still pending, urine cultures gram-negative rods Urinary retention secondary to prostatitis * Ortiz catheter placed in the emergency department secondary to retention Plan * DC Ortiz * Start Flomax * Urinary retention protocol Acute kidney injury * Estimated GFR 40-->45-->-->40 * Creatinine increased from 1.5-1.8 in the last year. Unknown if this is a significant acute increase versus chronic renal insufficiency. * Creatinine 1.8-->1.6-->1.8 * Likely worsened secondary to prerenal disease Plan * Cautious rehydration * Avoid nephrotoxic agents especially NSAIDs * Decrease Lasix to 40 mg p.o. twice daily and hold today's doses. Acute on chronic hypomagnesemia * Magnesium 1.4--> 2.2-->1.6 * Home meds include magnesium oxide 400 mg twice daily Plan * Continue home magnesium * Follow daily * Magnesium 2 g IV Congestive heart failure * History of congestive heart failure * Prescribed Lasix 80 mg 3 times daily at home * Taking only 80 mg once a day * 6 pound weight loss during hospitalization * -2600 mL yesterday Plan * Cautious rehydration * Change Lasix to 40 mg twice daily starting tomorrow * Hold Lasix today * Follow daily weights and I's and O's URI * Patient states he has had a dry cough for a week, shortness of breath, and a sore throat * COVID testing negative in the emergency department * SPO2 100% on room air * No complaints of cough, shortness of breath, or sore throat since admission Plan * Continue to monitor * Treat symptoms if indicated Chronic anemia * Long history of anemia verified by labs at our institution back to 2017 * Hemoglobin 8.4--8.0-->8.7 * Likely partially secondary to history of alcoholism and anemia of chronic disease * He is on home iron Plan * Continue home iron * Monitor CBC daily * If hemoglobin drops below 7 will transfuse Chronic medical problems include * Rheumatoid arthritis, gout, osteoarthritis, hypothyroidism, alcoholism, hypertension, GI bleed, heart murmur Plan * Continue home meds and monitor closely VTE prophylaxis with Lovenox CODE STATUS: Full code Disposition: Admit to floor for IV antibiotics with plan of discharge to home in 2 to 3 days.
[2019-11-29] MEDS: Meropenem Premix 500 MG in Premix Bag 1 BAG IV SCH ×2 (09:50→17:54)
[2019-11-29] MEDS: Dextrose 5%-0.45% NaCl 1,000 ML IV SCH (10:55)
[2019-11-29] MEDS ORDERED: Furosemide 80 MG Tab PO SCH (14:00)
[2019-11-29] MEDS: Tamsulosin 0.4 MG Cap.ER PO SCH (21:12)
[2019-11-29] MEDS: Temazepam 15 MG Cap PO PRN (21:13)
[2019-11-30] MEDS: Meropenem Premix 500 MG in Premix Bag 1 BAG IV SCH ×3 (01:46→16:41)
[2019-11-30] MEDS: Dextrose 5%-0.45% NaCl 1,000 ML IV SCH ×2 (01:46→17:24)
[2019-11-30] MEDS ORDERED: Furosemide 40 MG Tab PO SCH (06:00)
[2019-11-30] MEDS: Levothyroxine 25 MCG Tab PO SCH (06:50)
--- NOTE | 2019-11-30 09:25 | PCM.PN ---
- General Info Date of Service: 11/30/19 Admission Dx/Problem (Free Text): Admission Diagnosis/Problem Admission Diagnosis/Problem Upper urinary tract infection Functional Status: Reports: Pain Controlled - Review of Systems General: Reports: No Symptoms - Patient Data Vitals - Most Recent: Last Vital Signs Temp 97.9 F 11/30/19 08:19 Pulse 70 11/30/19 08:19 Resp 20 11/30/19 08:19 BP 117/87 11/30/19 08:19 Pulse Ox 98 11/30/19 08:19 Weight - Most Recent: 142 lb 1.6 oz I&O - Last 24 Hours: Intake & Output 11/29/19 11/30/19 11/30/19 22:59 06:59 14:59 Intake Total 1943 1529 Output Total 1650 1075 Balance 293 454 Lab Results Last 24 Hours: Laboratory Results - last 24 hr 11/30/19 11/30/19 Range/Units 05:04 05:04 WBC 4.88 (4.23-9.07) K/mm3 RBC 2.69 L (4.63-6.08) M/mm3 Hgb 8.0 L (13.7-17.5) gm/dl Hct 25.8 L (40.1-51.0) % MCV 95.9 H (79.0-92.2) fl MCH 29.7 (25.7-32.2) pg MCHC 31.0 L (32.2-35.5) g/dl RDW Std Deviation 50.2 H (35.1-43.9) fL Plt Count 228 (163-337) K/mm3 MPV 9.4 (9.4-12.3) fl Neut % (Auto) 49.9 (34.0-67.9) % Lymph % (Auto) 31.1 (21.8-53.1) % [place] % (Auto) 13.3 H (5.3-12.2) % Eos % (Auto) 5.1 (0.8-7.0) Baso % (Auto) 0.6 (0.1-1.2) % Neut # (Auto) 2.43 (1.78-5.38) K/mm3 Lymph # (Auto) 1.52 (1.32-3.57) K/mm3 [place] # (Auto) 0.65 (0.30-0.82) K/mm3 Eos # (Auto) 0.25 (0.04-0.54) K/mm3 Baso # (Auto) 0.03 (0.01-0.08) K/mm3 Sodium 138 (136-145) mEq/L Potassium 4.2 (3.5-5.1) mEq/L Chloride 102 (98-107) mEq/L Carbon Dioxide 27 (21-32) mEq/L Anion Gap 13.2 (5-15) BUN 47 H (7-18) mg/dL Creatinine 2.0 H (0.7-1.3) mg/dL Est Cr Clr Drug Dosing 38.49 mL/min Estimated GFR (MDRD) 35 (>60) mL/min BUN/Creatinine Ratio 23.5 H (14-18) Glucose 142 H (74-106) mg/dL Calcium 8.5 (8.5-10.1) mg/dL Magnesium 1.9 (1.8-2.4) mg/dl Total Bilirubin 0.3 (0.2-1.0) mg/dL AST 19 (15-37) U/L ALT 18 (16-63) U/L Alkaline Phosphatase 151 H (46-116) U/L C-Reactive Protein 7.2 H* (<1.0) mg/dL Total Protein 6.8 (6.4-8.2) g/dl Albumin 2.7 L (3.4-5.0) g/dl Globulin 4.1 gm/dL Albumin/Globulin Ratio 0.7 L (1-2) Talib Results Last 24 Hours: Microbiology 11/27/19 15:20 Aerobic Blood Culture - Preliminary Blood - Venous - Lab Draw NO GROWTH AFTER 2 DAYS Anaerobic Blood Culture - Preliminary NO GROWTH AFTER 2 DAYS 11/27/19 15:10 Aerobic Blood Culture - Preliminary Blood - Venous NO GROWTH AFTER 2 DAYS Anaerobic Blood Culture - Preliminary NO GROWTH AFTER 2 DAYS 11/27/19 17:40 Urine Culture - Preliminary Urine, Bladder Escherichia Coli Med Orders - Current: Current Medications Acetaminophen (Tylenol) 650 mg PO Q4H PRN PRN Reason: Pain (Mild 1-3)/fever Last Admin: 11/28/19 08:33 Dose: 650 mg Hydrocodone Bitart/Acetaminophen ([place] 325-5 Mg) 1 tab PO Q4H PRN PRN Reason: Pain (moderate 4-6) Calcium Carbonate/Glycine (Tums) 1,000 mg PO BID [facility] Last Admin: 11/29/19 21:12 Dose: 1,000 mg Enoxaparin Sodium (Lovenox) 40 mg SUBCUT DAILY [facility] Last Admin: 11/29/19 08:19 Dose: 40 mg Gabapentin (Neurontin) 300 mg PO BID [facility] Last Admin: 11/29/19 21:12 Dose: 300 mg Dextrose/Sodium Chloride (Dextrose 5%-1/2 Ns) 1,000 mls @ 75 mls/hr IV ASDIRECTED [facility] Last Admin: 11/30/19 01:46 Dose: 75 mls/hr Meropenem/Sodium Chloride 500 (mg/ Premix) 50 mls @ 100 mls/hr IV Q8H [facility] Last Admin: 11/30/19 01:46 Dose: 100 mls/hr Levothyroxine Sodium (Levothyroxine) 25 mcg PO ACBREAKFAST [facility] Last Admin: 11/30/19 06:50 Dose: 25 mcg Magnesium Oxide (Magnesium Oxide) 400 mg PO BID [facility] Last Admin: 11/29/19 21:12 Dose: 400 mg Ondansetron HCl (Zofran Odt) 4 mg PO Q4H PRN PRN Reason: nausea, able to take PO Orphenadrine Citrate (Norflex) 100 mg PO BID PRN PRN Reason: Muscle Spasm Polysaccharide Iron Complex (Ferrex 150) 150 mg PO BID [facility] Last Admin: 11/29/19 21:11 Dose: 150 mg Tamsulosin HCl (Flomax) 0.4 mg PO BEDTIME [facility] Last Admin: 11/29/19 21:12 Dose: 0.4 mg Temazepam (Restoril) 15 mg PO BEDTIME PRN PRN Reason: Sleep Last Admin: 11/29/19 21:13 Dose: 15 mg Discontinued Medications Acetaminophen (Tylenol) 975 mg PO NOW ONE Stop: 11/27/19 14:44 Last Admin: 11/27/19 15:46 Dose: 975 mg Furosemide (Lasix) 80 mg PO TID [facility] Last Admin: 11/28/19 20:07 Dose: 80 mg Furosemide (Lasix) 80 mg PO BIDDIURETIC [facility] Furosemide (Lasix) 40 mg PO BIDDIURETIC [facility] Last Admin: 11/30/19 06:50 Dose: 40 mg Dextrose/Sodium Chloride (Dextrose 5%-Normal Saline) 1,000 mls @ 999 mls/hr IV ASDIRECTED [facility] Last Admin: 11/27/19 15:41 Dose: 999 mls/hr Ceftriaxone Sodium 2 gm/ (Sodium Chloride) 100 mls @ 200 mls/hr IV Q24H [facility] Last Admin: 11/28/19 17:30 Dose: 200 mls/hr Lactated Ringer's (Ringers, Lactated) 1,000 mls @ 125 mls/hr IV ASDIRECTED [facility] Last Admin: 11/27/19 18:48 Dose: 125 mls/hr Magnesium Sulfate 4 gm/ Premix 50 mls @ 12.5 mls/hr IV ONETIME ONE Stop: 11/28/19 00:05 Last Admin: 11/27/19 21:01 Dose: 12.5 mls/hr Lactated Ringer's (Ringers, Lactated) 1,000 mls @ 75 mls/hr IV ASDIRECTED [facility] Last Admin: 11/28/19 02:55 Dose: 75 mls/hr Magnesium Sulfate 2 gm/ Premix 50 mls @ 25 mls/hr IV ONETIME ONE Stop: 11/29/19 09:43 Last Admin: 11/29/19 08:19 Dose: 25 mls/hr Influenza Virus Vaccine (Pharmacy To Dose - Influenza Vaccine) 1 each IM ONETIME ONE Stop: 11/27/19 19:43 Influenza Virus Vaccine (Fluzone Quad [id number] Syringe) 60 mcg IM .ONCE ONE Stop: 11/28/19 09:01 Lidocaine HCl (Xylocaine 2% Jelly) 10 ml MUCMEM ONETIME ONE Stop: 11/27/19 18:59 Last Admin: 11/27/19 19:23 Dose: 10 ml Meropenem (Merrem) 1 gm IVPUSH Q8H [facility] Last Admin: 11/29/19 10:11 Dose: Not Given Non-Formulary Medication (Folic Acid/Vitamin B Comp W-C) 1 mg PO DAILY [facility] - Exam General: Alert, Oriented HEENT: Pupils Equal, Mucous Membr. Moist/[place] Neck: Supple Lungs: Clear to Auscultation, Normal Respiratory Effort Cardiovascular: Regular Rate, Regular Rhythm GI/Abdominal Exam: Normal Bowel Sounds, Soft, Non-Tender, No Organomegaly, No Distention, No Abnormal Bruit, No Mass Extremities: Non-Tender, No Pedal Edema, Normal Capillary Refill Peripheral Pulses: 2+: Posterior Tibial (L), Posterior Tibial (R), Dorsalis Pedis (L), Dorsalis Pedis (R) Skin: Warm, Dry, Intact Psy/Mental Status: Alert, Normal Affect, Normal Mood Sepsis Event Note - Evaluation Sepsis Screening Result: No Definite Risk - Focused Exam Vital Signs: Vital Signs Temp Pulse Resp BP Pulse Ox 11/30/19 08:19 97.9 F 70 20 117/87 98 11/30/19 02:42 97.9 F 64 14 99 Date Exam was Performed: 11/30/19 Time Exam was Performed: 09:18 - Problem List & Annotations (1) Prostatitis, acute SNOMED Code(s): 95125439 Code(s): N41.0 - ACUTE PROSTATITIS Status: Acute Current Visit: Yes (2) Acute kidney injury SNOMED Code(s): 97241349, 49422636 Code(s): N17.9 - ACUTE KIDNEY FAILURE, UNSPECIFIED Status: Acute Current Visit: Yes (3) Urinary retention with incomplete bladder emptying SNOMED Code(s): 245822536 Code(s): R33.9 - RETENTION OF URINE, UNSPECIFIED Status: Acute Current Visit: Yes (4) Hypomagnesemia SNOMED Code(s): 866657167 Code(s): E83.42 - HYPOMAGNESEMIA Status: Chronic Current Visit: No (5) Anemia SNOMED Code(s): 668671992 Code(s): D64.9 - ANEMIA, UNSPECIFIED Status: Chronic Current Visit: No Qualifiers: Anemia type: other cause - Problem List Review Problem List Initiated/Reviewed/Updated: Yes - My Orders Last 24 Hours: My Active Orders 11/29/19 09:26 Bladder Scan [RC] ASDIRECTED Communication Order [RC] ASDIRECTED Notify Provider Intake and Out [RC] ASDIRECTED Urinary Catheter Assessment [RC] ASDIRECTED 11/29/19 09:30 Insert Urinary Catheter [OM.PC] ASDIRECTED Meropenem Premix [Meropenem] 500 mg Premix Bag 1 bag IV Q8H - Plan Plan:: UTI with acute prostatitis * Patient complains of dysuria with increased frequency for 1 month. * No history of prostate disease in the past * Reported fever of 104 at home * Afebrile during hospitalization * Microbiology called with concern for ESBL Plan * Change antibiotics to meropenem * Urine and blood cultures -still pending, E. coli. No sensitivities available. Urinary retention secondary to prostatitis * Ortiz catheter placed in the emergency department secondary to retention * Ortiz removed yesterday * Urinating normally Plan * Continue Flomax * Urinary retention protocol Acute kidney injury * Estimated GFR 40-->45-->40--> 35 * Creatinine increased from 1.5-1.8 in the last year. Unknown if this is a significant acute increase versus chronic renal insufficiency. * Creatinine 1.8-->1.6-->1.8--> 2.0 * Likely worsened secondary to prerenal disease * Kidney function appears to have worsened secondary to dehydration. It appears patient is not on nearly as much Lasix as he initially stated. * 5 pound weight loss during hospitalization * 727 mL yesterday; -2128 mL during hospitalization Plan * Continue cautious rehydration * Avoid nephrotoxic agents especially NSAIDs * Decrease Lasix to 40 mg p.o. daily . Acute on chronic hypomagnesemia * Magnesium 1.4--> 2.2-->1.6-->1.9 * Home meds include magnesium oxide 400 mg twice daily Plan * Continue home magnesium * Follow daily Congestive heart failure * History of congestive heart failure * Prescribed Lasix 80 mg 3 times daily at home * Taking only 80 mg once a day * 5 pound weight loss during hospitalization * 727 mL yesterday; -2128 mL during hospitalization Plan * Cautious rehydration * Change Lasix to 40 mg twice daily starting tomorrow * Hold Lasix today * Follow daily weights and I's and O's URI * Patient states he has had a dry cough for a week, shortness of breath, and a sore throat * COVID testing negative in the emergency department * SPO2 100% on room air * No complaints of cough, shortness of breath, or sore throat since admission Plan * Continue to monitor * Treat symptoms if indicated Chronic anemia * Long history of anemia verified by labs at our institution back to 2017 * Hemoglobin 8.4--8.0-->8.7-->8.0 * Likely partially secondary to history of alcoholism and anemia of chronic disease * He is on home iron Plan * Continue home iron * Monitor CBC daily * If hemoglobin drops below 7 will transfuse Chronic medical problems include * Rheumatoid arthritis, gout, osteoarthritis, hypothyroidism, alcoholism, hypertension, GI bleed, heart murmur Plan * Continue home meds and monitor closely VTE prophylaxis with Lovenox CODE STATUS: Full code Disposition: Admit to floor for IV antibiotics with plan of discharge to home in 2 to 3 days. Awaiting final culture results.
[2019-11-30] MEDS ORDERED: Meropenem Premix 50 ML ONE ×2 (09:36→09:43)
[2019-11-30] MEDS: Iron Polysaccharides Complex 150 MG Cap PO SCH ×2 (09:49→20:55)
[2019-11-30] MEDS: Calcium Carbonate 500 MG Tab.Chew PO SCH ×2 (09:49→20:55)
[2019-11-30] MEDS: Magnesium Oxide 400 MG Tab PO SCH ×2 (09:49→20:55)
[2019-11-30] MEDS: Gabapentin 300 MG Cap PO SCH ×2 (09:49→20:55)
[2019-11-30] MEDS: Enoxaparin 40 MG/0.4 ML Syringe SUBCUT SCH (09:50)
[2019-11-30] MEDS ORDERED: Lactated Ringers 1,000 ML IV SCH (20:00)
[2019-11-30] MEDS: Tamsulosin 0.4 MG Cap.ER PO SCH (20:55)
[2019-12-01] MEDS: Meropenem Premix 500 MG in Premix Bag 1 BAG IV SCH ×2 (02:16→09:09)
[2019-12-01] MEDS: Levothyroxine 25 MCG Tab PO SCH (06:22)
--- NOTE | 2019-12-01 09:05 | PCM.PN ---
- General Info Date of Service: 12/01/19 Admission Dx/Problem (Free Text): Admission Diagnosis/Problem Admission Diagnosis/Problem Upper urinary tract infection Subjective Update: Patient states that he is feeling better. He has no abdominal pain or flank pain. Urinary retention seems to have resolved. Functional Status: Reports: Pain Controlled - Review of Systems General: Reports: No Symptoms HEENT: Reports: No Symptoms Pulmonary: Reports: No Symptoms Cardiovascular: Reports: No Symptoms Gastrointestinal: Reports: No Symptoms Musculoskeletal: Reports: No Symptoms - Patient Data Vitals - Most Recent: Last Vital Signs Temp 98.2 F 12/01/19 07:55 Pulse 64 12/01/19 07:55 Resp 20 12/01/19 07:55 BP 114/81 12/01/19 07:55 Pulse Ox 99 12/01/19 07:55 Weight - Most Recent: 148 lb 1.6 oz I&O - Last 24 Hours: Intake & Output 11/30/19 12/01/19 12/01/19 22:59 06:59 14:59 Intake Total 1245 1342 Output Total 1250 Balance 1245 92 Lab Results Last 24 Hours: Laboratory Results - last 24 hr 12/01/19 12/01/19 Range/Units 05:32 05:32 WBC 4.70 (4.23-9.07) K/mm3 RBC 2.76 L (4.63-6.08) M/mm3 Hgb 8.2 L (13.7-17.5) gm/dl Hct 26.5 L (40.1-51.0) % MCV 96.0 H (79.0-92.2) fl MCH 29.7 (25.7-32.2) pg MCHC 30.9 L (32.2-35.5) g/dl RDW Std Deviation 49.3 H (35.1-43.9) fL Plt Count 269 (163-337) K/mm3 MPV 9.6 (9.4-12.3) fl Neut % (Auto) 42.1 (34.0-67.9) % Lymph % (Auto) 38.5 (21.8-53.1) % [place] % (Auto) 12.8 H (5.3-12.2) % Eos % (Auto) 6.0 (0.8-7.0) Baso % (Auto) 0.4 (0.1-1.2) % Neut # (Auto) 1.98 (1.78-5.38) K/mm3 Lymph # (Auto) 1.81 (1.32-3.57) K/mm3 [place] # (Auto) 0.60 (0.30-0.82) K/mm3 Eos # (Auto) 0.28 (0.04-0.54) K/mm3 Baso # (Auto) 0.02 (0.01-0.08) K/mm3 Sodium 138 (136-145) mEq/L Potassium 4.4 (3.5-5.1) mEq/L Chloride 102 (98-107) mEq/L Carbon Dioxide 27 (21-32) mEq/L Anion Gap 13.4 (5-15) BUN 46 H (7-18) mg/dL Creatinine 1.7 H (0.7-1.3) mg/dL Est Cr Clr Drug Dosing 47.20 mL/min Estimated GFR (MDRD) 42 (>60) mL/min BUN/Creatinine Ratio 27.1 H (14-18) Glucose 117 H (74-106) mg/dL Calcium 8.7 (8.5-10.1) mg/dL Magnesium 1.9 (1.8-2.4) mg/dl Total Bilirubin 0.3 (0.2-1.0) mg/dL AST 32 (15-37) U/L ALT 30 (16-63) U/L Alkaline Phosphatase 159 H (46-116) U/L Total Protein 7.2 (6.4-8.2) g/dl Albumin 2.9 L (3.4-5.0) g/dl Globulin 4.3 gm/dL Albumin/Globulin Ratio 0.7 L (1-2) Talib Results Last 24 Hours: Microbiology 11/27/19 15:20 Aerobic Blood Culture - Preliminary Blood - Venous - Lab Draw NO GROWTH AFTER 3 DAYS Anaerobic Blood Culture - Preliminary NO GROWTH AFTER 3 DAYS 11/27/19 15:10 Aerobic Blood Culture - Preliminary Blood - Venous NO GROWTH AFTER 3 DAYS Anaerobic Blood Culture - Preliminary NO GROWTH AFTER 3 DAYS 11/27/19 17:40 Urine Culture - Final Urine, Bladder (Esbl) Escherichia Coli Med Orders - Current: Current Medications Acetaminophen (Tylenol) 650 mg PO Q4H PRN PRN Reason: Pain (Mild 1-3)/fever Last Admin: 11/28/19 08:33 Dose: 650 mg Hydrocodone Bitart/Acetaminophen ([place] 325-5 Mg) 1 tab PO Q4H PRN PRN Reason: Pain (moderate 4-6) Calcium Carbonate/Glycine (Tums) 1,000 mg PO BID [facility] Last Admin: 11/30/19 20:55 Dose: 1,000 mg Enoxaparin Sodium (Lovenox) 40 mg SUBCUT DAILY [facility] Last Admin: 11/30/19 09:50 Dose: 40 mg Gabapentin (Neurontin) 300 mg PO BID [facility] Last Admin: 11/30/19 20:55 Dose: 300 mg Dextrose/Sodium Chloride (Dextrose 5%-1/2 Ns) 1,000 mls @ 75 mls/hr IV ASDIRECTED [facility] Last Admin: 11/30/19 17:24 Dose: 75 mls/hr Meropenem/Sodium Chloride 500 (mg/ Premix) 50 mls @ 100 mls/hr IV Q8H [facility] Last Admin: 12/01/19 02:16 Dose: 100 mls/hr Lactated Ringer's (Ringers, Lactated) 1,000 mls @ 100 mls/hr IV ASDIRECTED [facility] Last Admin: 12/01/19 06:22 Dose: 100 mls/hr Levothyroxine Sodium (Levothyroxine) 25 mcg PO ACBREAKFAST [facility] Last Admin: 12/01/19 06:22 Dose: 25 mcg Magnesium Oxide (Magnesium Oxide) 400 mg PO BID [facility] Last Admin: 11/30/19 20:55 Dose: 400 mg Ondansetron HCl (Zofran Odt) 4 mg PO Q4H PRN PRN Reason: nausea, able to take PO Orphenadrine Citrate (Norflex) 100 mg PO BID PRN PRN Reason: Muscle Spasm Polysaccharide Iron Complex (Ferrex 150) 150 mg PO BID [facility] Last Admin: 11/30/19 20:55 Dose: 150 mg Tamsulosin HCl (Flomax) 0.4 mg PO BEDTIME [facility] Last Admin: 11/30/19 20:55 Dose: 0.4 mg Temazepam (Restoril) 15 mg PO BEDTIME PRN PRN Reason: Sleep Last Admin: 11/29/19 21:13 Dose: 15 mg Discontinued Medications Acetaminophen (Tylenol) 975 mg PO NOW ONE Stop: 11/27/19 14:44 Last Admin: 11/27/19 15:46 Dose: 975 mg Furosemide (Lasix) 80 mg PO TID MARLENI Last Admin: 11/28/19 20:07 Dose: 80 mg Furosemide (Lasix) 80 mg PO BIDDIURETIC MARLENI Furosemide (Lasix) 40 mg PO BIDDIURETIC MARLENI Last Admin: 11/30/19 06:50 Dose: 40 mg Dextrose/Sodium Chloride (Dextrose 5%-Normal Saline) 1,000 mls @ 999 mls/hr IV ASDIRECTED MARLENI Last Admin: 11/27/19 15:41 Dose: 999 mls/hr Ceftriaxone Sodium 2 gm/ (Sodium Chloride) 100 mls @ 200 mls/hr IV Q24H MARLENI Last Admin: 11/28/19 17:30 Dose: 200 mls/hr Lactated Ringer's (Ringers, Lactated) 1,000 mls @ 125 mls/hr IV ASDIRECTED [facility] Last Admin: 11/27/19 18:48 Dose: 125 mls/hr Magnesium Sulfate 4 gm/ Premix 50 mls @ 12.5 mls/hr IV ONETIME ONE Stop: 11/28/19 00:05 Last Admin: 11/27/19 21:01 Dose: 12.5 mls/hr Lactated Ringer's (Ringers, Lactated) 1,000 mls @ 75 mls/hr IV ASDIRECTED [facility] Last Admin: 11/28/19 02:55 Dose: 75 mls/hr Magnesium Sulfate 2 gm/ Premix 50 mls @ 25 mls/hr IV ONETIME ONE Stop: 11/29/19 09:43 Last Admin: 11/29/19 08:19 Dose: 25 mls/hr Meropenem/Sodium Chloride (Meropenem) Confirm Administered Dose 50 mls @ as directed .ROUTE .STK-MED ONE Stop: 11/30/19 09:37 Last Admin: 11/30/19 12:42 Dose: Not Given Meropenem/Sodium Chloride (Meropenem) Confirm Administered Dose 50 mls @ as directed .ROUTE .STK-MED ONE Stop: 11/30/19 09:44 Last Admin: 11/30/19 12:43 Dose: Not Given Influenza Virus Vaccine (Pharmacy To Dose - Influenza Vaccine) 1 each IM ONETIME ONE Stop: 11/27/19 19:43 Influenza Virus Vaccine (Fluzone Quad [id number] Syringe) 60 mcg IM .ONCE ONE Stop: 11/28/19 09:01 Lidocaine HCl (Xylocaine 2% Jelly) 10 ml MUCMEM ONETIME ONE Stop: 11/27/19 18:59 Last Admin: 11/27/19 19:23 Dose: 10 ml Meropenem (Merrem) 1 gm IVPUSH Q8H MARLENI Last Admin: 11/29/19 10:11 Dose: Not Given Non-Formulary Medication (Folic Acid/Vitamin B Comp W-C) 1 mg PO DAILY MARLENI - Exam General: Alert, Oriented HEENT: Pupils Equal, Mucous Membr. Moist/[place] Neck: Supple Lungs: Clear to Auscultation, Normal Respiratory Effort Cardiovascular: Regular Rate, Regular Rhythm GI/Abdominal Exam: Normal Bowel Sounds, Soft, Non-Tender, No Organomegaly, No Distention, No Abnormal Bruit, No Mass Extremities: Normal Inspection, Non-Tender, No Pedal Edema, Normal Capillary Refill Skin: Warm, Dry, Intact Neurological: No New Focal Deficit Psy/Mental Status: Alert, Normal Affect, Normal Mood Sepsis Event Note - Evaluation Sepsis Screening Result: No Definite Risk - Focused Exam Vital Signs: Vital Signs Temp Pulse Resp BP Pulse Ox 12/01/19 07:55 98.2 F 64 20 114/81 99 12/01/19 02:10 98.4 F 63 16 100/63 99 Date Exam was Performed: 12/01/19 Time Exam was Performed: 10:56 - Problem List & Annotations (1) Prostatitis, acute SNOMED Code(s): 03129637 Code(s): N41.0 - ACUTE PROSTATITIS Status: Acute Current Visit: Yes (2) Acute kidney injury SNOMED Code(s): 72156032, 11908491 Code(s): N17.9 - ACUTE KIDNEY FAILURE, UNSPECIFIED Status: Acute Current Visit: Yes (3) Urinary retention with incomplete bladder emptying SNOMED Code(s): 651021436 Code(s): R33.9 - RETENTION OF URINE, UNSPECIFIED Status: Acute Current Visit: Yes (4) Hypomagnesemia SNOMED Code(s): 289532878 Code(s): E83.42 - HYPOMAGNESEMIA Status: Chronic Current Visit: No (5) Anemia SNOMED Code(s): 627305782 Code(s): D64.9 - ANEMIA, UNSPECIFIED Status: Chronic Current Visit: No Qualifiers: Anemia type: other cause - Problem List Review Problem List Initiated/Reviewed/Updated: Yes - My Orders Last 24 Hours: My Active Orders 11/30/19 20:00 Lactated Ringers [Ringers, Lactated] 1,000 ml IV ASDIRECTED - Plan Plan:: UTI with acute prostatitis * Patient complains of dysuria with increased frequency for 1 month. * No history of prostate disease in the past * Reported fever of 104 at home * Afebrile during hospitalization * Urine culture positive for ESBL. Sensitive to Bactrim. * Blood cultures negative Plan * Change antibiotics from meropenem to Bactrim Urinary retention secondary to prostatitis-improved * Ortiz catheter placed in the emergency department secondary to retention * Ortiz removed * Urinating normally Plan * Continue Flomax * Urinary retention protocol Acute kidney injury * Estimated GFR 40-->45-->40--> 35-->42 * Creatinine increased from 1.5-1.8 in the last year. Unknown if this is a significant acute increase versus chronic renal insufficiency. * Creatinine 1.8-->1.6-->1.8--> 2.0-->1.7 * Likely worsened secondary to prerenal disease * Kidney function appears to have worsened secondary to dehydration. It appears patient is not on nearly as much Lasix as he initially stated. * 5 pound weight loss during hospitalization * 727 mL yesterday; -2128 mL during hospitalization Plan * Continue cautious rehydration * Avoid nephrotoxic agents especially NSAIDs * Change Lasix to 40 mg twice daily. Acute on chronic hypomagnesemia * Magnesium 1.4--> 2.2-->1.6-->1.9-->1.9 * Home meds include magnesium oxide 400 mg twice daily Plan * Continue home magnesium * Follow daily Congestive heart failure * History of congestive heart failure * Prescribed Lasix 80 mg 3 times daily at home * Taking only 80 mg once a day * 1 pound weight gain during hospitalization * 890 mL yesterday; -1121 mL during hospitalization Plan * Cautious rehydration * Change Lasix to 40 mg twice daily * Follow daily weights and I's and O's URI * Patient states he has had a dry cough for a week, shortness of breath, and a sore throat * COVID testing negative in the emergency department * SPO2 100% on room air * No complaints of cough, shortness of breath, or sore throat since admission Plan * Continue to monitor * Treat symptoms if indicated Chronic anemia * Long history of anemia verified by labs at our institution back to 2017 * Hemoglobin 8.4--8.0-->8.7-->8.0-->8.2 * Likely partially secondary to history of alcoholism and anemia of chronic disease * He is on home iron Plan * Continue home iron * Monitor CBC daily * If hemoglobin drops below 7 will transfuse Chronic medical problems include * Rheumatoid arthritis, gout, osteoarthritis, hypothyroidism, alcoholism, hypertension, GI bleed, heart murmur Plan * Continue home meds and monitor closely VTE prophylaxis with Lovenox CODE STATUS: Full code Disposition: Admit to floor for IV antibiotics with plan of discharge tomorrow.
[2019-12-01] MEDS: Calcium Carbonate 500 MG Tab.Chew PO SCH ×2 (09:08→20:16)
[2019-12-01] MEDS: Iron Polysaccharides Complex 150 MG Cap PO SCH ×2 (09:08→20:15)
[2019-12-01] MEDS: Magnesium Oxide 400 MG Tab PO SCH ×2 (09:08→20:15)
[2019-12-01] MEDS: Enoxaparin 40 MG/0.4 ML Syringe SUBCUT SCH (09:08)
[2019-12-01] MEDS: Gabapentin 300 MG Cap PO SCH ×2 (09:09→20:15)
[2019-12-01] MEDS ORDERED: Furosemide 40 MG Tab PO ONE (09:14)
[2019-12-01] MEDS: Furosemide 40 MG Tab PO SCH (15:18)
[2019-12-01] MEDS: Sulfamethoxazole/Trimethoprim 800-160 MG Tab PO SCH (20:15)
[2019-12-01] MEDS: Tamsulosin 0.4 MG Cap.ER PO SCH (20:15)
[2019-12-01] MEDS: Temazepam 15 MG Cap PO PRN (20:16)
[2019-12-02] MEDS: Furosemide 40 MG Tab PO SCH (05:16)
[2019-12-02] MEDS: Levothyroxine 25 MCG Tab PO SCH (05:16)
--- NOTE | 2019-12-02 09:44 | PCM.DCSUM1 ---
Discharge Summary - Hospital Course HPI Initial Comments: 53-year-old male presents to the emergency department after complaining of dysuria, dizziness, and fever. Patient states he started having dysuria for approximately 1 month. This morning he became very lightheaded and dizzy and it worsened when he walked. He states that he did not have a fever, but when asked by the emergency department he stated he had 3 days of very high fever up to 104 degrees. He had intermittent Reiger's and chills. Patient states he has urinary frequency and right-sided flank pain. He had some nausea yesterday. He has nocturia x2. No history of prostate symptoms or disease. He also complains of a dry cough for a week, shortness of breath, but he has a history of heart failure, and a mild sore throat. In the emergency department he had a negative COVID test. Patient states he smokes occasionally 2 to 3 cigarettes every 3 days. He was a heavier smoker approximate 12 years ago. He has a history of alcohol abuse, but stopped 8 years ago. He did have 2 beers 3 days ago. He states is the only alcohol he has had in 8 years. In the emergency department temperature was 98.2. White count was 7.18, hemoglobin 8.4, platelets 188. 0% bands. ESR 78. C-reactive protein 15.5. Sodium 137, potassium 4.0, bicarb 21, anion gap 15, BUN 38, creatinine 1.8, estimated GFR 40, glucose 98, magnesium 1.4, total bilirubin 0.6, AST 27, ALT 16 , alkaline phosphatase 173, proBNP 390, albumin 3.0. SARS virus RNA negative UA: 40-50 WBCs, RBCs 0-5, many bacteria. CT of the abdomen pelvis without contrast: 1. Bladder somewhat distended and difficult to exclude an element of bladder outlet obstruction. 2. Normal-appearing appendix. Nonacute findings. Chest x-ray: 1. Heart size mildly enlarged which is more prominent than on previous study. Otherwise nothing acute. EKG: Normal sinus rhythm, ventricular rate of 70, Q waves in lead III and aVF? consider old inferior infarct, low voltage precordial leads. Diagnosis: Stroke: No - Discharge Data Discharge Date: 12/02/19 Discharge Disposition: Home, Self-Care 01 Condition: Good - Referral to Home Health Primary Care Physician: PCP None - Discharge Diagnosis/Problem(s) (1) Prostatitis, acute SNOMED Code(s): 30619772 ICD Code: N41.0 - ACUTE PROSTATITIS Status: Acute Current Visit: Yes (2) Acute kidney injury SNOMED Code(s): 23297549, 25796049 ICD Code: N17.9 - ACUTE KIDNEY FAILURE, UNSPECIFIED Status: Acute Current Visit: Yes (3) Urinary retention with incomplete bladder emptying SNOMED Code(s): 779277244 ICD Code: R33.9 - RETENTION OF URINE, UNSPECIFIED Status: Acute Current Visit: Yes (4) Hypomagnesemia SNOMED Code(s): 452358372 ICD Code: E83.42 - HYPOMAGNESEMIA Status: Chronic Current Visit: No (5) Anemia SNOMED Code(s): 718121132 ICD Code: D64.9 - ANEMIA, UNSPECIFIED Status: Chronic Current Visit: No Qualifiers: Anemia type: other cause - Patient Summary/Data Hospital Course: Patient was admitted with complicated UTI and prostatitis. Patient was also found to be in urinary retention and a Ortiz catheter was placed. Initially patient was started on Rocephin for his UTI, but urine sensitivities came back ESBL. He was switched to meropenem and then to Bactrim. Patient had what was felt to be acute on chronic kidney injury. Creatinine did increase when we restarted his home medications of Lasix 80 mg 3 times daily. After further discussion with him about his home medications he admitted that he only takes his Lasix about 1 time a day. IV fluids were given to correct hypovolemia, patient had lost 6 pounds during the first 2 days of hospitalization, and Lasix was reduced significantly. It does appear patient has chronic renal insufficiency that will need to be worked up and followed as an outpatient. We monitored his hemoglobin throughout hospitalization and it stayed consistent in the low eights. Patient was continued on Bactrim double strength 1 tab twice daily for another 4 weeks. He may need a total of 6 weeks if he is still having prostate tenderness at 4 weeks. Urinary retention did resolve during hospitalization. He was started on Flomax 0.4 mg at night and the urinary catheter was removed. - Patient Instructions Diet: Heart Healthy Diet Driving: May Drive Today Showering/Bathing: May Shower Other/Special Instructions: Follow up with primary care next week. You will be on antibiotics for another 4-6 weeks. We decreased your furosemide to 40 mg twice a day. You will need recheck of your electrolytes and kidney function next week by her primary care provider. - Discharge Plan *PRESCRIPTION DRUG MONITORING PROGRAM REVIEWED*: Not Applicable *COPY OF PRESCRIPTION DRUG MONITORING REPORT IN PATIENT TENISHA: Not Applicable Prescriptions/Med Rec: Furosemide [Lasix] 40 mg PO BIDDIURETIC #60 tablet Sulfamethoxazole/Trimethoprim [Septra DS] 1 tab PO BID #60 tablet Tamsulosin [Flomax] 0.4 mg PO BEDTIME #30 cap.er Home Medications: Home Meds Calcium Carbonate [Tums] 2 tab PO BID 02/05/19 [History] Folic Acid/Vitamin B Comp W-C [Renal Caps Softgel] 1 mg PO DAILY 02/05/19 [ History] Gabapentin [Neurontin] 300 mg PO BID 02/05/19 [History] Levothyroxine 25 mcg PO ACBREAKFAST 02/05/19 [History] Magnesium Oxide [Magnesium] 400 mg PO BID 02/05/19 [History] Orphenadrine [Norflex] 100 mg PO BID PRN 02/05/19 [History] Iron Polysaccharides Complex [Ferrex 150] 150 mg PO BID 11/27/19 [History] Furosemide [Lasix] 40 mg PO BIDDIURETIC #60 tablet 12/02/19 [Rx] Sulfamethoxazole/Trimethoprim [Septra DS] 1 tab PO BID #60 tablet 12/02/19 [Rx] Tamsulosin [Flomax] 0.4 mg PO BEDTIME #30 cap.er 12/02/19 [Rx] Oxygen Therapy Mode: Room Air Patient Handouts: Urinary Tract Infection, Adult, [id number], Sepsis, Diagnosis, Adult, Heart Failure, Steps to Quit Smoking Referrals: Felton Marie MD [Physician] - 12/11/19 2:30 pm (Please check in by 2:15pm at [facility].) - Discharge Summary/Plan Comment DC Time >30 min.: Yes Discharge Summary/Plan Comment: Discharged home in good condition. Follow-up with primary care provider in 1 week. Follow renal function in 1 week. Decrease Lasix to 40 mg twice daily Continue Bactrim double strength 1 tab twice daily for another 4 weeks. You may require a total of 6 weeks of therapy. You have been started on Flomax 0.4 mg at night for urinary retention. - General Info Date of Service: 12/02/19 Admission Dx/Problem (Free Text: Admission Diagnosis/Problem Admission Diagnosis/Problem Upper urinary tract infection Subjective Update: Patient is feeling much better. Denies any fever or chills. Functional Status: Reports: Pain Controlled - Review of Systems General: Reports: No Symptoms HEENT: Reports: No Symptoms Pulmonary: Reports: No Symptoms Cardiovascular: Reports: No Symptoms Gastrointestinal: Reports: No Symptoms Genitourinary: Reports: No Symptoms Musculoskeletal: Reports: No Symptoms - Patient Data Vitals - Most Recent: Last Vital Signs Temp 97.9 F 12/02/19 05:15 Pulse 62 12/02/19 05:15 Resp 16 12/02/19 05:15 BP 109/63 12/02/19 05:15 Pulse Ox 97 12/02/19 05:15 Weight - Most Recent: 146 lb 12.8 oz I&O - Last 24 hours: Intake & Output 12/01/19 12/02/19 12/02/19 22:59 06:59 14:59 Intake Total 1901 600 Output Total 1400 2350 Balance 501 -1750 Lab Results - Last 24 hrs: Laboratory Results - last 24 hr 12/02/19 12/02/19 Range/Units 05:34 05:34 WBC 4.84 (4.23-9.07) K/mm3 RBC 2.77 L (4.63-6.08) M/mm3 Hgb 8.4 L (13.7-17.5) gm/dl Hct 26.8 L (40.1-51.0) % MCV 96.8 H (79.0-92.2) fl MCH 30.3 (25.7-32.2) pg MCHC 31.3 L (32.2-35.5) g/dl RDW Std Deviation 49.9 H (35.1-43.9) fL Plt Count 300 (163-337) K/mm3 MPV 9.2 L (9.4-12.3) fl Neut % (Auto) 43.4 (34.0-67.9) % Lymph % (Auto) 37.0 (21.8-53.1) % Smyth % (Auto) 13.0 H (5.3-12.2) % Eos % (Auto) 5.6 (0.8-7.0) Baso % (Auto) 0.8 (0.1-1.2) % Neut # (Auto) 2.10 (1.78-5.38) K/mm3 Lymph # (Auto) 1.79 (1.32-3.57) K/mm3 Smyth # (Auto) 0.63 (0.30-0.82) K/mm3 Eos # (Auto) 0.27 (0.04-0.54) K/mm3 Baso # (Auto) 0.04 (0.01-0.08) K/mm3 Sodium 140 (136-145) mEq/L Potassium 4.6 (3.5-5.1) mEq/L Chloride 103 (98-107) mEq/L Carbon Dioxide 29 (21-32) mEq/L Anion Gap 12.6 (5-15) BUN 45 H (7-18) mg/dL Creatinine 1.7 H (0.7-1.3) mg/dL Est Cr Clr Drug Dosing 46.79 mL/min Estimated GFR (MDRD) 42 (>60) mL/min BUN/Creatinine Ratio 26.5 H (14-18) Glucose 89 (74-106) mg/dL Calcium 8.9 (8.5-10.1) mg/dL Magnesium 1.8 (1.8-2.4) mg/dl Total Bilirubin 0.2 (0.2-1.0) mg/dL AST 62 H (15-37) U/L ALT 43 (16-63) U/L Alkaline Phosphatase 160 H (46-116) U/L Total Protein 7.2 (6.4-8.2) g/dl Albumin 3.0 L (3.4-5.0) g/dl Globulin 4.2 gm/dL Albumin/Globulin Ratio 0.7 L (1-2) ARAVIND Results - Last 24 hrs: Microbiology 11/27/19 15:20 Aerobic Blood Culture - Preliminary Blood - Venous - Lab Draw NO GROWTH AFTER 4 DAYS Anaerobic Blood Culture - Preliminary NO GROWTH AFTER 4 DAYS 11/27/19 15:10 Aerobic Blood Culture - Preliminary Blood - Venous NO GROWTH AFTER 4 DAYS Anaerobic Blood Culture - Preliminary NO GROWTH AFTER 4 DAYS Med Orders - Current: Current Medications Acetaminophen (Tylenol) 650 mg PO Q4H PRN PRN Reason: Pain (Mild 1-3)/fever Last Admin: 11/28/19 08:33 Dose: 650 mg Hydrocodone Bitart/Acetaminophen ([place] 325-5 Mg) 1 tab PO Q4H PRN PRN Reason: Pain (moderate 4-6) Calcium Carbonate/Glycine (Tums) 1,000 mg PO BID [facility] Last Admin: 12/01/19 20:16 Dose: 1,000 mg Enoxaparin Sodium (Lovenox) 40 mg SUBCUT DAILY [facility] Last Admin: 12/01/19 09:08 Dose: 40 mg Furosemide (Lasix) 40 mg PO BIDDIURETIC [facility] Last Admin: 12/02/19 05:16 Dose: 40 mg Gabapentin (Neurontin) 300 mg PO BID [facility] Last Admin: 12/01/19 20:15 Dose: 300 mg Levothyroxine Sodium (Levothyroxine) 25 mcg PO ACBREAKFAST [facility] Last Admin: 12/02/19 05:16 Dose: 25 mcg Magnesium Oxide (Magnesium Oxide) 400 mg PO BID [facility] Last Admin: 12/01/19 20:15 Dose: 400 mg Ondansetron HCl (Zofran Odt) 4 mg PO Q4H PRN PRN Reason: nausea, able to take PO Orphenadrine Citrate (Norflex) 100 mg PO BID PRN PRN Reason: Muscle Spasm Polysaccharide Iron Complex (Ferrex 150) 150 mg PO BID [facility] Last Admin: 12/01/19 20:15 Dose: 150 mg Tamsulosin HCl (Flomax) 0.4 mg PO BEDTIME [facility] Last Admin: 12/01/19 20:15 Dose: 0.4 mg Temazepam (Restoril) 15 mg PO BEDTIME PRN PRN Reason: Sleep Last Admin: 12/01/19 20:16 Dose: 15 mg Trimethoprim/Sulfamethoxazole (Septra Ds) 1 tab PO BID [facility] Last Admin: 12/01/19 20:15 Dose: 1 tab Discontinued Medications Acetaminophen (Tylenol) 975 mg PO NOW ONE Stop: 11/27/19 14:44 Last Admin: 11/27/19 15:46 Dose: 975 mg Furosemide (Lasix) 80 mg PO TID [facility] Last Admin: 11/28/19 20:07 Dose: 80 mg Furosemide (Lasix) 80 mg PO BIDDIURETIC [facility] Furosemide (Lasix) 40 mg PO BIDDIURETIC [facility] Last Admin: 11/30/19 06:50 Dose: 40 mg Furosemide (Lasix) 40 mg PO ONETIME ONE Stop: 12/01/19 09:15 Last Admin: 12/01/19 10:10 Dose: 40 mg Dextrose/Sodium Chloride (Dextrose 5%-Normal Saline) 1,000 mls @ 999 mls/hr IV ASDIRECTED [facility] Last Admin: 11/27/19 15:41 Dose: 999 mls/hr Ceftriaxone Sodium 2 gm/ (Sodium Chloride) 100 mls @ 200 mls/hr IV Q24H [facility] Last Admin: 11/28/19 17:30 Dose: 200 mls/hr Lactated Ringer's (Ringers, Lactated) 1,000 mls [facility] Last Admin: 11/27/19 18:48 Dose: 125 mls/hr Magnesium Sulfate 4 gm/ Premix 50 mls @ 12.5 mls/hr IV ONETIME ONE Stop: 11/28/19 00:05 Last Admin: 11/27/19 21:01 Dose: 12.5 mls/hr Lactated Ringer's (Ringers, Lactated) 1,000 mls @ [facility] Last Admin: 11/28/19 02:55 Dose: 75 mls/hr Dextrose/Sodium Chloride (Dextrose 5%-1/2 Ns) 1,000 mls @ [facility] Last Admin: 11/30/19 17:24 Dose: 75 mls/hr Magnesium Sulfate 2 gm/ Premix 50 mls @ 25 mls/hr IV ONETIME ONE Stop: 11/29/19 09:43 Last Admin: 11/29/19 08:19 Dose: 25 mls/hr Meropenem/Sodium Chloride 500 (mg/ Premix) 50 mls @ 100 mls/hr IV Q8H [facility] Last Admin: 12/01/19 09:09 Dose: 100 mls/hr Meropenem/Sodium Chloride (Meropenem) Confirm Administered Dose 50 mls @ as directed .ROUTE .STK-MED ONE Stop: 11/30/19 09:37 Last Admin: 11/30/19 12:42 Dose: Not Given Meropenem/Sodium Chloride (Meropenem) Confirm Administered Dose 50 mls @ as directed .ROUTE .STK-MED ONE Stop: 11/30/19 09:44 Last Admin: 11/30/19 12:43 Dose: Not Given Lactated Ringer's (Ringers, Lactated) 1,000 mls @ 100 mls/hr IV ASDIRECTED [facility] Last Admin: 12/01/19 06:22 Dose: 100 mls/hr Influenza Virus Vaccine (Pharmacy To Dose - Influenza Vaccine) 1 each IM ONETIME ONE Stop: 11/27/19 19:43 Influenza Virus Vaccine (Fluzone Quad Syringe) 60 mcg IM .ONCE ONE Stop: 11/28/19 09:01 Lidocaine HCl (Xylocaine 2% Jelly) 10 ml MUCMEM ONETIME ONE Stop: 11/27/19 18:59 Last Admin: 11/27/19 19:23 Dose: 10 ml Meropenem (Merrem) 1 gm IVPUSH Q8H [facility] Last Admin: 11/29/19 10:11 Dose: Not Given Non-Formulary Medication (Folic Acid/Vitamin B Comp W-C) 1 mg PO DAILY MARLENI - Exam Quality Assessment: Denies: Supplemental Oxygen General: Reports: Alert, Oriented HEENT: Reports: Pupils Equal, Mucous Membr. Moist/[place] Neck: Reports: Supple Lungs: Reports: Clear to Auscultation, Normal Respiratory Effort Cardiovascular: Reports: Regular Rate, Regular Rhythm GI/Abdominal Exam: Normal Bowel Sounds, Soft, Non-Tender, No Organomegaly, No Distention Extremities: Normal Inspection, Normal Range of Motion, Non-Tender, No Pedal Edema, Normal Capillary Refill Skin: Reports: Warm, Dry, Intact Psy/Mental Status: Reports: Alert, Normal Affect, Normal Mood
[2019-12-02] MEDS: Magnesium Oxide 400 MG Tab PO SCH (10:18)
[2019-12-02] MEDS: Calcium Carbonate 500 MG Tab.Chew PO SCH (10:18)
[2019-12-02] MEDS: Gabapentin 300 MG Cap PO SCH (10:19)
[2019-12-02] MEDS: Iron Polysaccharides Complex 150 MG Cap PO SCH (10:19)
[2019-12-02] MEDS: Enoxaparin 40 MG/0.4 ML Syringe SUBCUT SCH (10:19)
[2019-12-02] MEDS: Sulfamethoxazole/Trimethoprim 800-160 MG Tab PO SCH (10:19)
[2019-12-02] MEDS ORDERED: FLU Vacc QS2019-20(6MOS+)/PF 60 MCG/0.5 ML SYRINGE IM ONE (11:30)
[2019-12-02 15:15] VITALS: BP 93/63; PULSE 83
== END 2019-12-02 11:56 | disposition home or self-care (01) | DRG 728 ==
LOC: JD.ED 14:15 → JD.MS 18:22
PROVIDERS: ADMIT Family Medicine; ATTEND Family Medicine
DX: N41.0 Acute prostatitis (principal); N39.0 Urinary tract infection, site not specified; N17.9 Acute kidney failure, unspecified; I13.0 Hypertensive heart and chronic kidney disease with heart failure and stage 1 through stage 4 chronic kidney disease, or unspecified chronic kidney disease; E83.42 Hypomagnesemia; Z20.828 Contact with and (suspected) exposure to other viral communicable diseases; J06.9 Acute upper respiratory infection, unspecified; I50.9 Heart failure, unspecified; M06.9 Rheumatoid arthritis, unspecified; M10.9 Gout, unspecified; Z79.890 Hormone replacement therapy; M19.90 Unspecified osteoarthritis, unspecified site; E03.9 Hypothyroidism, unspecified; F10.20 Alcohol dependence, uncomplicated; Z88.8 Allergy status to other drugs, medicaments and biological substances; D63.8 Anemia in other chronic diseases classified elsewhere; Z79.899 Other long term (current) drug therapy; Z23 Encounter for immunization; F17.210 Nicotine dependence, cigarettes, uncomplicated; N18.9 Chronic kidney disease, unspecified
CPT/HCPCS: 36415; 51701; 51798; 71045; 71045-26; 74176; 74176-26; 80053; 81001; 83690; 83735; 83880; 85007; 85025; 85027; 85610; 85652; 85730; 86140; 87040; 87086; 87088; 87186; 90686; 93005; 93010; 96360; 96361; 99285; 99285-25; A9270-GY; G0008; G0103; J0696; J1650; J2185; J3475; J7042; J7050; J7120; U0002

== ENCOUNTER 2023-10-29 11:52 | Emergency (ER) | payer OTHER, MEDICAID ==
[2023-10-29 12:06] VITALS: PULSE 57
[2023-10-29 12:53] LABS: HEMATOCRIT 21.3 % (42.0-52.0); MEAN CORPUSCULAR HEMOGLOBIN 32.7 pg (28.0-32.0); MEAN CORPUSCULAR HGB CONC 31.9 g/dl (32.0-36.0); MEAN CORPUSCULAR VOLUME 102.4 fl (83.0-99.0); MEAN PLATELET VOLUME 11.4 fl (9.4-12.4); PLATELET COUNT,PLT 82 K/mm3 (150-400); RED BLOOD CELL COUNT 2.08 M/mm3 (4.52-5.90)
[2023-10-29 13:05] LABS: HEMOGLOBIN 6.8 gm/dl (14.0-18.0); WHITE BLOOD CELL COUNT,WBC 50.27 K/mm3 (3.9-11.3)
[2023-10-29 13:07] LABS: INR 1.12; PROTHROMBIN TIME 11.9 SECONDS (9.7-12.0)
[2023-10-29 13:12] LABS: A/G RATIO 0.9 (1-2); ANION GAP 17.5 (5-15); BILIRUBIN TOTAL 0.3 mg/dL (0.2-1.0); BUN/CREATININE RATIO 38.1 (14-18); C-REACTIVE PROTEIN 0.35 mg/dL (<0.30); CALCIUM 7.8 mg/dL (8.5-10.1); CREATININE 1.6 mg/dL (0.7-1.3); EST CRCL DRUG DOSING (CG) 47.46 mL/min; PROTEIN TOTAL,TP 6.2 g/dl (6.4-8.2)
[2023-10-29 13:13] LABS: POTASSIUM,K 5.5 mEq/L (3.5-5.1)
[2023-10-29 13:23] LABS: LACTIC ACID 1.9 mmol/L (0.4-2.0)
[2023-10-29] MEDS: Sodium Chloride 0.9% 10 ML Syringe FLUSH PRN (13:29)
[2023-10-29] MEDS: Iopamidol 612 MG/ML 100 ML Bottle IVPUSH ONE (13:29)
[2023-10-29] MEDS: Sodium Chloride 0.9% 1,000 ML IV STA (13:54)
[2023-10-29 13:55] LABS: BAND PERCENT MAN 3 % (0-10); BASOPHILS PERCENT MAN 0 (0.2-1.2); EOSINOPHILS PERCENT MAN 2 % (0.8-7.0); LYMPHOCYTES % ATYPICAL MANUAL 0 %; LYMPHOCYTES PERCENT MAN 5 % (20-40); MONOCYTES PERCENT MAN 1 % (2-10)
[2023-10-29 13:56] LABS: MICROCYTOSIS 1+ SLIGHT; PLATELET COUNT ESTIMATE DECREASED; TARGET CELLS 2+ MODERATE; TOXIC GRANULATION 2+ MODERATE
[2023-10-29 14:56] LABS: APPEARANCE,URINE SLT CLOUDY (Clear); BILIRUBIN,URINE NEGATIVE (Negative); COLOR,URINE YELLOW (Yellow); GLUCOSE,URINE NEGATIVE (Negative); KETONES,URINE NEGATIVE (Negative); LEUKOCYTE ESTERASE,URINE 3+ (Negative); NITRITE,URINE POSITIVE (Negative); OCCULT BLOOD,URINE 1+ (Negative); PROTEIN,URINE TRACE (Negative); UROBILINOGEN,URINE 0.2 (0.2-1.0)
[2023-10-29] MEDS: Sodium Chloride 0.9% 250 ML IV SCH (15:05)
[2023-10-29 15:11] LABS: EPITHELIAL CELLS,URINE 0-5 /hpf (0-5); RBC,URINE 0-5 /hpf (0-5); WBC,URINE 20-30 /hpf (0-5)
[2023-10-29 15:12] LABS: BACTERIA,URINE FEW /hpf (FEW); MUCUS,URINE FEW /hpf (FEW)
[2023-10-29] MEDS: Piperacillin/Tazobactam 4.5 GM in Sodium Chloride 0.9% 100 ML IV ONE (15:18)
[2023-10-29 20:35] VITALS: BP 134/62
== END 2023-10-29 16:45 ==
LOC: JD.ED 11:52
DX: T81.31XA Disruption of external operation (surgical) wound, not elsewhere classified, initial encounter (principal); D64.9 Anemia, unspecified; N10 Acute pyelonephritis; I13.0 Hypertensive heart and chronic kidney disease with heart failure and stage 1 through stage 4 chronic kidney disease, or unspecified chronic kidney disease; I50.9 Heart failure, unspecified; N18.2 Chronic kidney disease, stage 2 (mild); E03.9 Hypothyroidism, unspecified; C16.9 Malignant neoplasm of stomach, unspecified; Z79.899 Other long term (current) drug therapy; Z88.8 Allergy status to other drugs, medicaments and biological substances
CPT/HCPCS: 36415; 36430; 51798; 74177; 80053; 81001; 83605; 85007; 85027; 85610; 86140; 86850; 86900; 86901; 86922; 87040; 87086; 87088; 87186; 96361; 96365; 99285; C1758; J2543; J3490; J7030; J7050; P9016; Q9967

== ENCOUNTER 2023-11-06 07:39 | Emergency (ER) | payer OTHER, MEDICAID ==
[2023-11-06 08:03] LABS: BASOPHILS ABSOLUTE AUTO 0.1 K/mm3 (0.0-0.2); BASOPHILS PERCENT AUTO 0.5 % (0.0-1.0); EOSINOPHILS ABSOLUTE AUTO 0.2 K/mm3 (0.0-0.4); EOSINOPHILS PERCENT AUTO 1.1 % (0.0-6.0); HEMATOCRIT 25.7 % (42.0-52.0); IMMATURE GRAN ABSOLUTE AUTO 0.11 K/mm3 (0.00-0.05); IMMATURE GRAN PERCENT AUTO 0.7 % (0.0-0.4); LYMPHOCYTES PERCENT AUTO 13.4 % (24.0-44.0); MEAN CORPUSCULAR HEMOGLOBIN 31.2 pg (28.0-32.0); MEAN CORPUSCULAR HGB CONC 32.3 g/dl (32.0-36.0); MEAN PLATELET VOLUME 10.1 fl (9.4-12.4); MONOCYTES ABSOLUTE AUTO 0.9 K/mm3 (0.0-0.8); MONOCYTES PERCENT AUTO 6.3 % (0.0-8.0); NEUTROPHILS ABSOLUTE AUTO 11.6 K/mm3 (1.8-7.7); PLATELET COUNT,PLT 154 K/mm3 (150-400); RED BLOOD CELL COUNT 2.66 M/mm3 (4.52-5.90); WHITE BLOOD CELL COUNT,WBC 14.88 K/mm3 (3.9-11.3)
[2023-11-06 08:04] LABS: HEMOGLOBIN 8.3 gm/dl (14.0-18.0)
[2023-11-06 08:05] LABS: MEAN CORPUSCULAR VOLUME 96.6 fl (83.0-99.0)
[2023-11-06] MEDS: Sodium Chloride 0.9% 10 ML Syringe FLUSH PRN (08:05)
[2023-11-06 08:40] LABS: A/G RATIO 0.7 (1-2); ALBUMIN 2.8 g/dl (3.4-5.0); ANION GAP 17.6 (5-15); BILIRUBIN TOTAL 0.6 mg/dL (0.2-1.0); BUN/CREATININE RATIO 21.7 (14-18); CALCIUM 8.2 mg/dL (8.5-10.1); CREATININE 1.8 mg/dL (0.7-1.3); EST CRCL DRUG DOSING (CG) 38.03 mL/min; MAGNESIUM 1.1 mg/dL (1.8-2.4); POTASSIUM,K 4.6 mEq/L (3.5-5.1)
[2023-11-06 09:44] LABS: APPEARANCE,URINE CLEAR (Clear); BILIRUBIN,URINE NEGATIVE (Negative); COLOR,URINE YELLOW (Yellow); GLUCOSE,URINE NEGATIVE (Negative); KETONES,URINE NEGATIVE (Negative); LEUKOCYTE ESTERASE,URINE NEGATIVE (Negative); NITRITE,URINE NEGATIVE (Negative); OCCULT BLOOD,URINE TRACE-INTACT (Negative); PROTEIN,URINE 1+ (Negative); UROBILINOGEN,URINE 0.2 (0.2-1.0)
[2023-11-06 10:00] LABS: AMPHETAMINES SCREEN, URINE NEGATIVE (CUTOFF=500); BARBITURATE SCREEN,URINE NEGATIVE (CUTOFF=200); BENZODIAZEPINES SCREEN,URINE NEGATIVE (CUTOFF=150); BUPRENORPHINE SCREEN,URINE NEGATIVE (CUTOFF=10); METHADONE SCREEN, URINE NEGATIVE (CUT0FF=200); METHAMPHETAMINES SCREEN, URINE NEGATIVE (CUTOFF=500); OXYCODONE SCREEN,URINE NEGATIVE (CUT0FF=100); THC SCREEN,URINE 20 NG/ML PRESUMPTIVE POSITIVE (CUTOFF=50)
[2023-11-06 10:01] LABS: BACTERIA,URINE FEW /hpf (FEW); MUCUS,URINE MODERATE /hpf (FEW); WBC,URINE 0-5 /hpf (0-5)
[2023-11-06] MEDS: Sodium Chloride 0.9% 1,000 ML IV ONE (10:19)
[2023-11-06 12:09] VITALS: BP 135/84; PULSE 66
== END 2023-11-06 12:03 | disposition home or self-care (01) ==
LOC: JD.ED 07:39
DX: M25.511 Pain in right shoulder (principal); E86.0 Dehydration; I13.0 Hypertensive heart and chronic kidney disease with heart failure and stage 1 through stage 4 chronic kidney disease, or unspecified chronic kidney disease; I50.9 Heart failure, unspecified; N18.9 Chronic kidney disease, unspecified; Z79.899 Other long term (current) drug therapy; Z88.8 Allergy status to other drugs, medicaments and biological substances
CPT/HCPCS: 36415; 70450; 73000; 73030; 80053; 80306; 81001; 82947; 83735; 84484; 85025; 93005; 96360; 99285; J3490; J7030; 93010; 99284

== ENCOUNTER 2023-11-11 10:09 | Emergency (ER) | payer OTHER, MEDICAID ==
[2023-11-11 11:56] VITALS: BP 138/85; PULSE 65
== END 2023-11-11 12:00 | disposition home or self-care (01) ==
LOC: JD.ED 10:09
DX: I95.9 Hypotension, unspecified (principal); I13.0 Hypertensive heart and chronic kidney disease with heart failure and stage 1 through stage 4 chronic kidney disease, or unspecified chronic kidney disease; I50.9 Heart failure, unspecified; N18.9 Chronic kidney disease, unspecified; E03.9 Hypothyroidism, unspecified; Z91.030 Bee allergy status; Z88.8 Allergy status to other drugs, medicaments and biological substances; Z79.899 Other long term (current) drug therapy; Z87.891 Personal history of nicotine dependence
CPT/HCPCS: 93005; 99284

== ENCOUNTER 2024-04-28 09:10 | Inpatient (IN) | payer MEDICAID ==
[2024-04-28 10:30] LABS: BASOPHILS PERCENT AUTO 0.4 % (0.0-1.0); EOSINOPHILS PERCENT AUTO 0.2 % (0.0-6.0); HEMATOCRIT 27.3 % (42.0-52.0); HEMOGLOBIN 8.8 gm/dl (14.0-18.0); IMMATURE GRAN ABSOLUTE AUTO 0.05 K/mm3 (0.00-0.05); IMMATURE GRAN PERCENT AUTO 0.9 % (0.0-0.4); LYMPHOCYTES ABSOLUTE AUTO 0.3 K/mm3 (1.0-4.8); LYMPHOCYTES PERCENT AUTO 5.8 % (24.0-44.0); MEAN CORPUSCULAR HEMOGLOBIN 31.8 pg (28.0-32.0); MEAN CORPUSCULAR HGB CONC 32.2 g/dl (32.0-36.0); MEAN CORPUSCULAR VOLUME 98.6 fl (83.0-99.0); MONOCYTES ABSOLUTE AUTO 0.5 K/mm3 (0.0-0.8); MONOCYTES PERCENT AUTO 9.9 % (0.0-8.0); NEUTROPHILS ABSOLUTE AUTO 4.4 K/mm3 (1.8-7.7); NEUTROPHILS PERCENT AUTO 82.8 % (41.0-71.0); PLATELET COUNT,PLT 213 K/mm3 (150-400); RED BLOOD CELL COUNT 2.77 M/mm3 (4.52-5.90); WHITE BLOOD CELL COUNT,WBC 5.36 K/mm3 (3.9-11.3)
[2024-04-28] MEDS: Sodium Chloride 0.9% 10 ML Syringe FLUSH PRN ×2 (10:41→11:21)
[2024-04-28] MEDS: Ondansetron 4 MG/2 ML SDV IVPUSH ONE (10:41)
[2024-04-28] MEDS: Sodium Chloride 0.9% 1,000 ML IV STA ×2 (10:41→11:56)
[2024-04-28] MEDS: HYDROmorphone 0.5 MG/0.5 ML Syringe IVPUSH ONE (10:42)
[2024-04-28 10:58] LABS: A/G RATIO 0.4 (1-2); ALBUMIN 1.9 g/dl (3.4-5.0); BUN/CREATININE RATIO 40.6 (14-18); C-REACTIVE PROTEIN 23.16 mg/dL (<0.30); CALCIUM 8.2 mg/dL (8.5-10.1); CREATININE 1.7 mg/dL (0.7-1.3); EST CRCL DRUG DOSING (CG) 31.61 mL/min; PROTEIN TOTAL,TP 6.2 g/dl (6.4-8.2)
[2024-04-28 10:59] LABS: SLIDE REVIEW ABNORMAL SMEAR
[2024-04-28] MEDS: Iopamidol 612 MG/ML 100 ML Bottle IVPUSH ONE (11:22)
[2024-04-28] MEDS: Piperacillin/Tazobactam 4.5 GM in Sodium Chloride 0.9% 100 ML IV ONE ×2 (11:57→21:51)
[2024-04-28] MEDS ORDERED: fentaNYL 250 MCG/5 ML SDV ONE (12:29)
[2024-04-28] MEDS ORDERED: Propofol 200 MG/20 ML SDV ONE (12:29)
[2024-04-28] MEDS ORDERED: Midazolam 1 MG/ML 2 ML SDV ONE ×4 (12:29→15:35)
[2024-04-28] MEDS ORDERED: Bupivacaine 0.5% 30 ML SDV ONE (12:41)
[2024-04-28] MEDS ORDERED: EPINEPHrine 1 MG/ML SDV ONE (12:41)
[2024-04-28] MEDS ORDERED: ePHEDrine 50 MG/ML SDV ONE (13:08)
[2024-04-28] MEDS ORDERED: Sodium Chloride 0.9% 100 ML ONE (13:08)
[2024-04-28] MEDS ORDERED: dexmedeTOMIDine HCl 200 MCG/2 ML SDV ONE (13:08)
[2024-04-28] MEDS ORDERED: Rocuronium 50 MG/5 ML Vial ONE ×2 (13:08→14:24)
[2024-04-28] MEDS ORDERED: Phenylephrine 1% 10 MG/ML SDV ONE (13:08)
[2024-04-28] MEDS ORDERED: Ketorolac 30 MG/ML SDV ONE (13:08)
[2024-04-28] MEDS ORDERED: ceFAZolin 2 GM Vial ONE (13:08)
[2024-04-28] MEDS ORDERED: Succinylcholine 200 MG/10 ML MDV ONE (13:08)
[2024-04-28] MEDS ORDERED: Dexamethasone 4 MG/ML 5 ML MDV ONE (13:08)
[2024-04-28] MEDS ORDERED: Lidocaine 1% 5 ML VIAL ONE ×3 (13:08)
[2024-04-28] MEDS ORDERED: Lactated Ringers 1,000 ML IV ONE ×3 (14:00→15:30)
[2024-04-28] MEDS ORDERED: Sodium Chloride 0.9% 10 ML Syringe FLUSH PRN (14:19)
[2024-04-28] MEDS ORDERED: Ondansetron 4 MG/2 ML SDV IVPUSH PRN (14:19)
[2024-04-28] MEDS ORDERED: fentaNYL 100 MCG/2 ML SDV IVPUSH PRN (14:19)
[2024-04-28] MEDS ORDERED: HYDROmorphone 0.5 MG/0.5 ML Syringe IVPUSH PRN (14:19)
[2024-04-28] MEDS ORDERED: Esmolol 100 MG/10 ML SDV ONE (14:24)
[2024-04-28] MEDS ORDERED: Lactated Ringers 1,000 ML IV SCH (14:30)
[2024-04-28] MEDS ORDERED: Calcium Chloride 10% 1 GM/10 ML Syringe ONE (15:48)
[2024-04-28 17:05] LABS: BASE EXCESS ARTERIAL -17.4 (-2-2.0); BICARBONATE,ARTERIAL 11.2 meq/L (22.0-26.0); O2 SATURATION ARTERIAL 98.9 % (96.0-97.0)
[2024-04-28] MEDS: Midazolam 1 MG/ML 2 ML SDV IVPUSH ONE (17:09)
[2024-04-28 17:14] LABS: BASOPHILS PERCENT AUTO 0.4 % (0.0-1.0); HEMATOCRIT 26.9 % (42.0-52.0); HEMOGLOBIN 8.7 gm/dl (14.0-18.0); IMMATURE GRAN ABSOLUTE AUTO 0.08 K/mm3 (0.00-0.05); IMMATURE GRAN PERCENT AUTO 1.4 % (0.0-0.4); LYMPHOCYTES ABSOLUTE AUTO 0.2 K/mm3 (1.0-4.8); LYMPHOCYTES PERCENT AUTO 4.2 % (24.0-44.0); MEAN CORPUSCULAR HEMOGLOBIN 32.3 pg (28.0-32.0); MEAN CORPUSCULAR HGB CONC 32.3 g/dl (32.0-36.0); MEAN PLATELET VOLUME 10.6 fl (9.4-12.4); MONOCYTES ABSOLUTE AUTO 0.3 K/mm3 (0.0-0.8); MONOCYTES PERCENT AUTO 4.9 % (0.0-8.0); NEUTROPHILS ABSOLUTE AUTO 5.1 K/mm3 (1.8-7.7); NEUTROPHILS PERCENT AUTO 89.1 % (41.0-71.0); PLATELET COUNT,PLT 206 K/mm3 (150-400); RED BLOOD CELL COUNT 2.69 M/mm3 (4.52-5.90); WHITE BLOOD CELL COUNT,WBC 5.68 K/mm3 (3.9-11.3)
[2024-04-28] MEDS: Lactated Ringers 1,000 ML IV SCH (17:47)
[2024-04-28 20:00] LABS: BASE EXCESS ARTERIAL -16.4 (-2-2.0); BICARBONATE,ARTERIAL 11.8 meq/L (22.0-26.0); O2 SATURATION ARTERIAL 98.8 % (96.0-97.0); PCO2 ARTERIAL 38.2 mmHg (35.0-45.0)
[2024-04-28 20:00] LABS: HEMATOCRIT 29.5 % (42.0-52.0); HEMOGLOBIN 9.4 gm/dl (14.0-18.0); MEAN CORPUSCULAR HGB CONC 31.9 g/dl (32.0-36.0); MEAN CORPUSCULAR VOLUME 97.4 fl (83.0-99.0); MEAN PLATELET VOLUME 10.7 fl (9.4-12.4); PLATELET COUNT,PLT 178 K/mm3 (150-400); RED BLOOD CELL COUNT 3.03 M/mm3 (4.52-5.90); WHITE BLOOD CELL COUNT,WBC 7.52 K/mm3 (3.9-11.3)
[2024-04-28] MEDS: Sodium Chloride 0.9% 10 ML Syringe FLUSH SCH (20:37)
[2024-04-28 20:44] LABS: A/G RATIO 0.4 (1-2); ALBUMIN 1.4 g/dl (3.4-5.0); ANION GAP 22.6 (5-15); BILIRUBIN TOTAL 1.6 mg/dL (0.2-1.0); BUN/CREATININE RATIO 39.3 (14-18); CALCIUM 7.6 mg/dL (8.5-10.1); CREATININE 1.4 mg/dL (0.7-1.3); EST CRCL DRUG DOSING (CG) 38.34 mL/min; POTASSIUM,K 4.6 mEq/L (3.5-5.1); PROTEIN TOTAL,TP 4.6 g/dl (6.4-8.2)
[2024-04-28 21:06] LABS: LACTIC ACID 4.7 mmol/L (0.4-2.0)
[2024-04-28 21:18] LABS: APPEARANCE,URINE SLT CLOUDY (Clear); BILIRUBIN,URINE NEGATIVE (Negative); COLOR,URINE YELLOW (Yellow); GLUCOSE,URINE NEGATIVE (Negative); KETONES,URINE NEGATIVE (Negative); LEUKOCYTE ESTERASE,URINE NEGATIVE (Negative); NITRITE,URINE NEGATIVE (Negative); OCCULT BLOOD,URINE 2+ (Negative); PROTEIN,URINE 3+ (Negative)
[2024-04-28 21:25] LABS: BACTERIA,URINE MODERATE /hpf (FEW); MUCUS,URINE FEW /hpf (FEW); RBC,URINE 40-50 /hpf (0-5); SQUAMOUS EPITHELIAL CELLS,UR 0-5 /hpf (0-5); WBC,URINE 0-5 /hpf (0-5)
[2024-04-28 21:26] LABS: AMORPHOUS SEDIMENT,URINE MODERATE /hpf (NOT SEEN)
[2024-04-28] MEDS: HYDROmorphone 0.5 MG/0.5 ML Syringe IVPUSH PRN (23:55)
[2024-04-29] MEDS: Piperacillin/Tazobactam 3.375 GM in Sodium Chloride 0.9% 100 ML IV SCH (01:42)
[2024-04-29] MEDS: Sodium Chloride 0.9% 0 ML ONE (01:43)
[2024-04-29 04:36] LABS: BASE EXCESS ARTERIAL -16.8 (-2-2.0); BICARBONATE,ARTERIAL 10.1 meq/L (22.0-26.0); O2 SATURATION ARTERIAL 97.5 % (96.0-97.0); PCO2 ARTERIAL 27.8 mmHg (35.0-45.0)
[2024-04-29 06:10] LABS: HEMATOCRIT 32.5 % (42.0-52.0); HEMOGLOBIN 10.7 gm/dl (14.0-18.0); MEAN CORPUSCULAR HEMOGLOBIN 31.2 pg (28.0-32.0); MEAN CORPUSCULAR HGB CONC 32.9 g/dl (32.0-36.0); MEAN CORPUSCULAR VOLUME 94.8 fl (83.0-99.0); MEAN PLATELET VOLUME 11.2 fl (9.4-12.4); PLATELET COUNT,PLT 198 K/mm3 (150-400); RED BLOOD CELL COUNT 3.43 M/mm3 (4.52-5.90)
[2024-04-29 06:24] LABS: A/G RATIO 0.4 (1-2); ALBUMIN 1.5 g/dl (3.4-5.0); BILIRUBIN TOTAL 1.5 mg/dL (0.2-1.0); BUN/CREATININE RATIO 32.6 (14-18); CALCIUM 8.2 mg/dL (8.5-10.1); CREATININE 1.9 mg/dL (0.7-1.3); EST CRCL DRUG DOSING (CG) 28.25 mL/min; PROTEIN TOTAL,TP 5.1 g/dl (6.4-8.2)
[2024-04-29] MEDS: Piperacillin/Tazobactam 4.5 GM in Sodium Chloride 0.9% 100 ML IV SCH (09:33)
[2024-04-29] MEDS: Albumin 25% 12.5 GM in Premix Bag 1 BAG IV SCH (10:07)
[2024-04-29] MEDS: Sodium Chloride 0.9% 500 ML IV ONE (10:07)
[2024-04-30 05:30] LABS: BASE EXCESS ARTERIAL -11.9 (-2-2.0); BICARBONATE,ARTERIAL 12.8 meq/L (22.0-26.0); O2 SATURATION ARTERIAL 97.7 % (96.0-97.0); PCO2 ARTERIAL 25.8 mmHg (35.0-45.0)
[2024-04-30 05:42] LABS: HEMATOCRIT 22.1 % (42.0-52.0); HEMOGLOBIN 7.5 gm/dl (14.0-18.0); MEAN CORPUSCULAR HGB CONC 33.9 g/dl (32.0-36.0); MEAN CORPUSCULAR VOLUME 91.3 fl (83.0-99.0); MEAN PLATELET VOLUME 11.1 fl (9.4-12.4); PLATELET COUNT,PLT 119 K/mm3 (150-400); RED BLOOD CELL COUNT 2.42 M/mm3 (4.52-5.90); WHITE BLOOD CELL COUNT,WBC 8.91 K/mm3 (3.9-11.3)
[2024-04-30 06:05] LABS: ALBUMIN 1.8 g/dl (3.4-5.0); BUN/CREATININE RATIO 29.1 (14-18); CALCIUM 7.2 mg/dL (8.5-10.1); CREATININE 2.2 mg/dL (0.7-1.3); EST CRCL DRUG DOSING (CG) 24.4 mL/min; PROTEIN TOTAL,TP 4.7 g/dl (6.4-8.2)
[2024-04-30 06:06] LABS: A/G RATIO 0.6 (1-2); BILIRUBIN TOTAL 0.8 mg/dL (0.2-1.0); MAGNESIUM 1.3 mg/dL (1.8-2.4); PHOSPHORUS 5.1 mg/dL (2.6-4.7)
[2024-04-30] MEDS ORDERED: Magnesium Sulfate (4.06 MEQ/ML) 5 GM/10 ML SDV IV ONE (06:30)
[2024-04-30] MEDS ORDERED: Potassium Chloride 20 MEQ in Dextrose 5% in Water 1,000 ML IV SCH (06:30)
[2024-04-30] MEDS: Magnesium Sulfate/Water Premix 2 GM in Premix Bag 1 BAG IV ONE (06:36)
[2024-04-30] MEDS: Potassium Chloride 20 MEQ in Dextrose 5% in Water 1,000 ML IV SCH (07:56)
[2024-04-30 10:09] LABS: PCO2 ARTERIAL 18.1 mmHg (35.0-45.0)
[2024-04-30 10:10] LABS: BICARBONATE,ARTERIAL 9.7 meq/L (22.0-26.0); O2 SATURATION ARTERIAL 96.6 % (96.0-97.0)
[2024-04-30] MEDS: fentaNYL 100 MCG/2 ML SDV IVPUSH PRN (10:18)
[2024-04-30] MEDS: Albuterol/Ipratropium 3.0-0.5 MG/3 ML Neb Soln NEB PRN (12:47)
[2024-04-30] MEDS: Glycopyrrolate 0.2 MG/ML SDV IVPUSH PRN (13:04)
[2024-04-30] MEDS: MVI, Adult with Vitamin K 10 ML in AA 5%/Calcium/D20W/Lytes 1,000 ML IV SCH (15:27)
[2024-04-30] MEDS: Insulin Lispro 100 Unit/ML 3 ML KwikPen SUBCUT SCH (15:48)
[2024-05-01 04:51] LABS: PCO2 ARTERIAL 27.4 mmHg (35.0-45.0)
[2024-05-01 04:52] LABS: BASE EXCESS ARTERIAL -7.9 (-2-2.0); BICARBONATE,ARTERIAL 15.9 meq/L (22.0-26.0); O2 SATURATION ARTERIAL 96.6 % (96.0-97.0)
[2024-05-01 05:33] LABS: HEMATOCRIT 23.3 % (42.0-52.0); HEMOGLOBIN 7.9 gm/dl (14.0-18.0); MEAN CORPUSCULAR HEMOGLOBIN 30.7 pg (28.0-32.0); MEAN CORPUSCULAR HGB CONC 33.9 g/dl (32.0-36.0); MEAN CORPUSCULAR VOLUME 90.7 fl (83.0-99.0); MEAN PLATELET VOLUME 12.9 fl (9.4-12.4); PLATELET COUNT,PLT 58 K/mm3 (150-400); RED BLOOD CELL COUNT 2.57 M/mm3 (4.52-5.90); WHITE BLOOD CELL COUNT,WBC 5.83 K/mm3 (3.9-11.3)
[2024-05-01 05:48] LABS: A/G RATIO 0.6 (1-2); ALBUMIN 1.7 g/dl (3.4-5.0); ANION GAP 15.5 (5-15); BILIRUBIN TOTAL 0.7 mg/dL (0.2-1.0); CALCIUM 7.2 mg/dL (8.5-10.1); EST CRCL DRUG DOSING (CG) 26.84 mL/min; MAGNESIUM 1.4 mg/dL (1.8-2.4); PHOSPHORUS 3.7 mg/dL (2.6-4.7); POTASSIUM,K 3.5 mEq/L (3.5-5.1); PROTEIN TOTAL,TP 4.8 g/dl (6.4-8.2)
[2024-05-01] MEDS ORDERED: Magnesium Sulfate (4.06 MEQ/ML) 5 GM/10 ML SDV IV ONE (06:15)
[2024-05-01] MEDS: Magnesium Sulfate/Water Premix 2 GM in Premix Bag 1 BAG IV ONE (06:43)
[2024-05-01] MEDS: Insulin Glargine,Human Rec. Analog 100 Units/ML 3 ML Pen SUBCUT SCH ×2 (08:02→20:38)
[2024-05-01] MEDS: Enoxaparin 30 MG/0.3 ML Syringe SUBCUT SCH (08:03)
[2024-05-01] MEDS: LORazepam 2 MG/ML SDV ONE ×2 (09:56→10:32)
[2024-05-01] MEDS: Sodium Chloride 0.9% 100 ML ONE (10:51)
[2024-05-01] MEDS: LORazepam 2 MG/ML SDV IVPUSH ONE ×2 (12:13)
[2024-05-01] MEDS: MVI, Adult with Vitamin K 10 ML in AA 5%/Calcium/D20W/Lytes 1,000 ML IV SCH (15:00)
[2024-05-01] MEDS: Fat Emulsion 500 ML IV SCH (16:58)
[2024-05-01] MEDS: fentaNYL 100 MCG/2 ML SDV IVPUSH ONE (21:51)
[2024-05-01] MEDS: fentaNYL 100 MCG/2 ML SDV IVPUSH PRN (23:21)
[2024-05-02 05:48] LABS: MEAN CORPUSCULAR HGB CONC 34.1 g/dl (32.0-36.0); MEAN CORPUSCULAR VOLUME 90.9 fl (83.0-99.0); PLATELET COUNT,PLT 40 K/mm3 (150-400); RED BLOOD CELL COUNT 3.19 M/mm3 (4.52-5.90); WHITE BLOOD CELL COUNT,WBC 14.13 K/mm3 (3.9-11.3)
[2024-05-02 05:51] LABS: HEMOGLOBIN 9.9 gm/dl (14.0-18.0)
[2024-05-02 05:57] LABS: A/G RATIO 0.5 (1-2); ALBUMIN 1.9 g/dl (3.4-5.0); ANION GAP 15.2 (5-15); BILIRUBIN TOTAL 0.7 mg/dL (0.2-1.0); BUN/CREATININE RATIO 28.4 (14-18); CALCIUM 7.8 mg/dL (8.5-10.1); CREATININE 1.9 mg/dL (0.7-1.3); EST CRCL DRUG DOSING (CG) 30.26 mL/min; MAGNESIUM 1.6 mg/dL (1.8-2.4); POTASSIUM,K 3.2 mEq/L (3.5-5.1); PROTEIN TOTAL,TP 5.5 g/dl (6.4-8.2)
[2024-05-02] MEDS: Potassium Chloride 20 MEQ Tab.ER PO ONE (08:37)
[2024-05-02] MEDS: MVI, Adult with Vitamin K 10 ML in AA 5%/Calcium/D20W/Lytes 1,000 ML IV ONE (10:52)
[2024-05-02] MEDS ORDERED: Naloxone 0.4 MG/ML SDV IVPUSH PRN (16:45)
[2024-05-02] MEDS: oxyCODONE 5 MG Tab PO PRN (16:55)
[2024-05-02] MEDS: Morphine 2 MG/ML SYRINGE IVPUSH PRN (18:20)
[2024-05-03 05:50] LABS: HEMATOCRIT 27.7 % (42.0-52.0); HEMOGLOBIN 9.3 gm/dl (14.0-18.0); MEAN CORPUSCULAR HEMOGLOBIN 30.8 pg (28.0-32.0); MEAN CORPUSCULAR HGB CONC 33.6 g/dl (32.0-36.0); MEAN CORPUSCULAR VOLUME 91.7 fl (83.0-99.0); PLATELET COUNT,PLT 27 K/mm3 (150-400); RED BLOOD CELL COUNT 3.02 M/mm3 (4.52-5.90); WHITE BLOOD CELL COUNT,WBC 10.01 K/mm3 (3.9-11.3)
[2024-05-03 05:55] LABS: BUN/CREATININE RATIO 28.4 (14-18); CREATININE 1.9 mg/dL (0.7-1.3); EST CRCL DRUG DOSING (CG) 30.26 mL/min; MAGNESIUM 1.8 mg/dL (1.8-2.4); PHOSPHORUS 4.1 mg/dL (2.6-4.7)
[2024-05-03] MEDS: AA 5%/Calcium/D20W/Lytes 1,000 ML IV SCH (07:30)
[2024-05-03] MEDS: Dextrose 5% in Water 1,000 ML IV SCH (08:40)
[2024-05-03] MEDS: Magnesium Sulfate/Water Premix 4 GM in Premix Bag 1 BAG IV ONE (08:49)
[2024-05-03] MEDS: MVI, Adult with Vitamin K 10 ML in Sodium Chloride 0.9% 500 ML IV SCH (11:07)
[2024-05-03] MEDS: Sodium Chloride 0.9% 500 ML ONE (19:04)
[2024-05-03 22:03] LABS: HEMATOCRIT 23.5 % (42.0-52.0); MEAN CORPUSCULAR HGB CONC 32.8 g/dl (32.0-36.0); MEAN PLATELET VOLUME 10.7 fl (9.4-12.4); PLATELET COUNT,PLT 74 K/mm3 (150-400); RED BLOOD CELL COUNT 2.48 M/mm3 (4.52-5.90); WHITE BLOOD CELL COUNT,WBC 9.29 K/mm3 (3.9-11.3)
[2024-05-03 22:04] LABS: HEMOGLOBIN 7.7 gm/dl (14.0-18.0); MEAN CORPUSCULAR VOLUME 94.8 fl (83.0-99.0)
[2024-05-04 05:38] LABS: HEMATOCRIT 25.5 % (42.0-52.0); HEMOGLOBIN 8.3 gm/dl (14.0-18.0); MEAN CORPUSCULAR HEMOGLOBIN 30.9 pg (28.0-32.0); MEAN CORPUSCULAR HGB CONC 32.5 g/dl (32.0-36.0); MEAN CORPUSCULAR VOLUME 94.8 fl (83.0-99.0); MEAN PLATELET VOLUME 12.1 fl (9.4-12.4); PLATELET COUNT,PLT 60 K/mm3 (150-400); RED BLOOD CELL COUNT 2.69 M/mm3 (4.52-5.90)
[2024-05-04] MEDS: Acetaminophen 325 MG Tab PO PRN (07:58)
[2024-05-04 08:19] LABS: ANION GAP 15.8 (5-15); BUN/CREATININE RATIO 33.5 (14-18); CREATININE 1.7 mg/dL (0.7-1.3); EST CRCL DRUG DOSING (CG) 33.82 mL/min; POTASSIUM,K 3.8 mEq/L (3.5-5.1)
[2024-05-04] MEDS: Dextrose 5% in Water 1,000 ML IV SCH (12:38)
[2024-05-05 09:26] LABS: HEMATOCRIT 23.3 % (42.0-52.0); HEMOGLOBIN 7.6 gm/dl (14.0-18.0); MEAN CORPUSCULAR HEMOGLOBIN 31.1 pg (28.0-32.0); MEAN CORPUSCULAR HGB CONC 32.6 g/dl (32.0-36.0); MEAN CORPUSCULAR VOLUME 95.5 fl (83.0-99.0); MEAN PLATELET VOLUME 12.9 fl (9.4-12.4); PLATELET COUNT,PLT 41 K/mm3 (150-400); RED BLOOD CELL COUNT 2.44 M/mm3 (4.52-5.90); WHITE BLOOD CELL COUNT,WBC 7.66 K/mm3 (3.9-11.3)
[2024-05-05 09:52] LABS: A/G RATIO 0.4 (1-2); ALBUMIN 1.3 g/dl (3.4-5.0); ANION GAP 14.6 (5-15); BILIRUBIN TOTAL 0.6 mg/dL (0.2-1.0); BUN/CREATININE RATIO 32.2 (14-18); CALCIUM 7.6 mg/dL (8.5-10.1); CREATININE 1.8 mg/dL (0.7-1.3); EST CRCL DRUG DOSING (CG) 31.94 mL/min; POTASSIUM,K 3.6 mEq/L (3.5-5.1); PROTEIN TOTAL,TP 4.9 g/dl (6.4-8.2)
[2024-05-05] MEDS: AA 4.25%/D5W/Calcium/Lytes 1,000 ML IV SCH (19:09)
[2024-05-05] MEDS: Dextrose 5%-0.45% NaCl 1,000 ML IV SCH (19:10)
[2024-05-05] MEDS: Lidocaine 1% 2 ML ONE (20:02)
[2024-05-06 04:40] LABS: HEMATOCRIT 23.1 % (42.0-52.0); HEMOGLOBIN 7.7 gm/dl (14.0-18.0); MEAN CORPUSCULAR HEMOGLOBIN 31.2 pg (28.0-32.0); MEAN CORPUSCULAR HGB CONC 33.3 g/dl (32.0-36.0); MEAN CORPUSCULAR VOLUME 93.5 fl (83.0-99.0); MEAN PLATELET VOLUME 13.8 fl (9.4-12.4); PLATELET COUNT,PLT 47 K/mm3 (150-400); RED BLOOD CELL COUNT 2.47 M/mm3 (4.52-5.90); WHITE BLOOD CELL COUNT,WBC 7.92 K/mm3 (3.9-11.3)
[2024-05-06 05:16] LABS: A/G RATIO 0.4 (1-2); ALBUMIN 1.4 g/dl (3.4-5.0); ANION GAP 16.2 (5-15); BILIRUBIN TOTAL 0.7 mg/dL (0.2-1.0); BUN/CREATININE RATIO 30.5 (14-18); CALCIUM 7.6 mg/dL (8.5-10.1); CREATININE 1.9 mg/dL (0.7-1.3); EST CRCL DRUG DOSING (CG) 30.26 mL/min; POTASSIUM,K 4.2 mEq/L (3.5-5.1); PROTEIN TOTAL,TP 5.1 g/dl (6.4-8.2)
[2024-05-06] MEDS: Ondansetron 4 MG/2 ML SDV IVPUSH PRN (13:38)
[2024-05-06] MEDS: Atropine 0.1 MG/ML 10 ML Syringe ONE (19:44)
[2024-05-07 05:29] LABS: A/G RATIO 0.4 (1-2); ALBUMIN 1.5 g/dl (3.4-5.0); ANION GAP 12.4 (5-15); BILIRUBIN TOTAL 0.5 mg/dL (0.2-1.0); BUN/CREATININE RATIO 31.7 (14-18); CALCIUM 7.5 mg/dL (8.5-10.1); CREATININE 1.8 mg/dL (0.7-1.3); EST CRCL DRUG DOSING (CG) 33.76 mL/min; MAGNESIUM 1.6 mg/dL (1.8-2.4); PHOSPHORUS 4.1 mg/dL (2.6-4.7); POTASSIUM,K 3.4 mEq/L (3.5-5.1); PROTEIN TOTAL,TP 5.6 g/dl (6.4-8.2)
[2024-05-07 05:36] LABS: BASOPHILS PERCENT AUTO 0.3 % (0.0-1.0); EOSINOPHILS ABSOLUTE AUTO 0.1 K/mm3 (0.0-0.4); EOSINOPHILS PERCENT AUTO 0.6 % (0.0-6.0); HEMATOCRIT 22.8 % (42.0-52.0); IMMATURE GRAN ABSOLUTE AUTO 0.15 K/mm3 (0.00-0.05); LYMPHOCYTES ABSOLUTE AUTO 0.9 K/mm3 (1.0-4.8); LYMPHOCYTES PERCENT AUTO 6.1 % (24.0-44.0); MEAN CORPUSCULAR HEMOGLOBIN 30.7 pg (28.0-32.0); MEAN CORPUSCULAR HGB CONC 32.5 g/dl (32.0-36.0); MEAN CORPUSCULAR VOLUME 94.6 fl (83.0-99.0); MEAN PLATELET VOLUME 13.1 fl (9.4-12.4); MONOCYTES ABSOLUTE AUTO 1.4 K/mm3 (0.0-0.8); MONOCYTES PERCENT AUTO 9.1 % (0.0-8.0); NEUTROPHILS ABSOLUTE AUTO 12.4 K/mm3 (1.8-7.7); NEUTROPHILS PERCENT AUTO 82.9 % (41.0-71.0); PLATELET COUNT,PLT 59 K/mm3 (150-400); RED BLOOD CELL COUNT 2.41 M/mm3 (4.52-5.90); WHITE BLOOD CELL COUNT,WBC 14.93 K/mm3 (3.9-11.3)
[2024-05-07 05:49] LABS: HEMOGLOBIN 7.4 gm/dl (14.0-18.0)
[2024-05-07] MEDS: 50% Dextrose in Water 50 ML Syringe IVPUSH PRN (06:12)
[2024-05-07 06:48] LABS: SLIDE REVIEW ABNORMAL SMEAR
[2024-05-07] MEDS: Sodium Chloride 0.9% 10 ML Syringe FLUSH PRN (08:19)
[2024-05-07] MEDS: Iopamidol 612 MG/ML 100 ML Bottle IVPUSH ONE (08:20)
[2024-05-07] MEDS: Dextrose 5%-0.45% NaCl 1,000 ML IV SCH (09:02)
[2024-05-07] MEDS: Magnesium Sulfate/Water Premix 2 GM in Premix Bag 1 BAG IV ONE (09:06)
[2024-05-07] MEDS: Megestrol Susp 40 MG/ML 10 ML UD Cup PO SCH (14:59)
[2024-05-07 15:15] LABS: BASOPHILS PERCENT AUTO 0.3 % (0.0-1.0); EOSINOPHILS PERCENT AUTO 0.4 % (0.0-6.0); HEMATOCRIT 23.2 % (42.0-52.0); HEMOGLOBIN 7.7 gm/dl (14.0-18.0); IMMATURE GRAN ABSOLUTE AUTO 0.05 K/mm3 (0.00-0.05); IMMATURE GRAN PERCENT AUTO 0.5 % (0.0-0.4); LYMPHOCYTES ABSOLUTE AUTO 1.2 K/mm3 (1.0-4.8); LYMPHOCYTES PERCENT AUTO 11.2 % (24.0-44.0); MEAN CORPUSCULAR HGB CONC 33.2 g/dl (32.0-36.0); MEAN CORPUSCULAR VOLUME 93.5 fl (83.0-99.0); MEAN PLATELET VOLUME 13.2 fl (9.4-12.4); MONOCYTES ABSOLUTE AUTO 0.8 K/mm3 (0.0-0.8); MONOCYTES PERCENT AUTO 6.9 % (0.0-8.0); NEUTROPHILS PERCENT AUTO 80.7 % (41.0-71.0); PLATELET COUNT,PLT 55 K/mm3 (150-400); RED BLOOD CELL COUNT 2.48 M/mm3 (4.52-5.90); WHITE BLOOD CELL COUNT,WBC 11.08 K/mm3 (3.9-11.3)
[2024-05-07] MEDS ORDERED: AA 4.25%/D5W/Calcium/Lytes 1,000 ML IV SCH (18:00)
[2024-05-07] MEDS: AA 4.25%/D5W/Calcium/Lytes 1,000 ML IV SCH (18:14)
[2024-05-08] MEDS: Dextrose 5%-0.45% NaCl 1,000 ML IV SCH (01:09)
[2024-05-08 07:27] LABS: BASOPHILS PERCENT AUTO 0.3 % (0.0-1.0); EOSINOPHILS ABSOLUTE AUTO 0.1 K/mm3 (0.0-0.4); EOSINOPHILS PERCENT AUTO 0.9 % (0.0-6.0); HEMATOCRIT 21.8 % (42.0-52.0); IMMATURE GRAN ABSOLUTE AUTO 0.06 K/mm3 (0.00-0.05); IMMATURE GRAN PERCENT AUTO 0.5 % (0.0-0.4); LYMPHOCYTES ABSOLUTE AUTO 1.1 K/mm3 (1.0-4.8); LYMPHOCYTES PERCENT AUTO 10.1 % (24.0-44.0); MEAN CORPUSCULAR HEMOGLOBIN 31.5 pg (28.0-32.0); MEAN CORPUSCULAR HGB CONC 33.9 g/dl (32.0-36.0); MEAN CORPUSCULAR VOLUME 92.8 fl (83.0-99.0); MEAN PLATELET VOLUME 11.8 fl (9.4-12.4); MONOCYTES ABSOLUTE AUTO 0.7 K/mm3 (0.0-0.8); MONOCYTES PERCENT AUTO 6.3 % (0.0-8.0); NEUTROPHILS ABSOLUTE AUTO 9.2 K/mm3 (1.8-7.7); NEUTROPHILS PERCENT AUTO 81.9 % (41.0-71.0); PLATELET COUNT,PLT 59 K/mm3 (150-400); RED BLOOD CELL COUNT 2.35 M/mm3 (4.52-5.90); WHITE BLOOD CELL COUNT,WBC 11.24 K/mm3 (3.9-11.3)
[2024-05-08 07:32] LABS: HEMOGLOBIN 7.4 gm/dl (14.0-18.0)
[2024-05-08 08:05] LABS: A/G RATIO 0.3 (1-2); ALBUMIN 1.3 g/dl (3.4-5.0); ANION GAP 17.3 (5-15); BILIRUBIN TOTAL 0.5 mg/dL (0.2-1.0); BUN/CREATININE RATIO 30.6 (14-18); CALCIUM 7.8 mg/dL (8.5-10.1); CREATININE 1.8 mg/dL (0.7-1.3); EST CRCL DRUG DOSING (CG) 34.02 mL/min; POTASSIUM,K 4.3 mEq/L (3.5-5.1); PROTEIN TOTAL,TP 5.2 g/dl (6.4-8.2)
[2024-05-08 08:22] LABS: SLIDE REVIEW ABNORMAL SMEAR
[2024-05-08] MEDS: Fat Emulsion 500 ML IV SCH (12:07)
[2024-05-08 16:01] VITALS: BP 95/68; PULSE 85
== END 2024-05-08 14:52 | DRG 853 ==
LOC: JD.ED 09:10 → JD.SDS 12:29 → JD.ICU 16:01 → JD.MS 05-05 15:19
PROVIDERS: ADMIT Surgery; ATTEND Surgery
PROC: 0DTF0ZZ Resection of Right Large Intestine, Open Approach (ICD-10-PCS; 2024-04-28)
PROC: 0DNW0ZZ Release Peritoneum, Open Approach (ICD-10-PCS; 2024-04-28)
PROC: 0DJW4ZZ Inspection of Peritoneum, Percutaneous Endoscopic Approach (ICD-10-PCS; 2024-04-28)
PROC: 30233N1 Transfusion of Nonautologous Red Blood Cells into Peripheral Vein, Percutaneous Approach (ICD-10-PCS; 2024-04-28)
PROC: 3E03329 Introduction of Other Anti-infective into Peripheral Vein, Percutaneous Approach (ICD-10-PCS; 2024-04-28)
PROC: 0D1B0Z4 Bypass Ileum to Cutaneous, Open Approach (ICD-10-PCS; principal; 2024-04-28 12:34)
PROC: 3E0336Z Introduction of Nutritional Substance into Peripheral Vein, Percutaneous Approach (ICD-10-PCS; 2024-04-30)
PROC: 4A133B3 Monitoring of Arterial Pressure, Pulmonary, Percutaneous Approach (ICD-10-PCS; 2024-04-30)
PROC: 30233R1 Transfusion of Nonautologous Platelets into Peripheral Vein, Percutaneous Approach (ICD-10-PCS; 2024-05-03)
DX: A41.9 Sepsis, unspecified organism (principal); G92.8 Other toxic encephalopathy; K63.1 Perforation of intestine (nontraumatic); R65.21 Severe sepsis with septic shock; R57.1 Hypovolemic shock; J96.90 Respiratory failure, unspecified, unspecified whether with hypoxia or hypercapnia; J69.0 Pneumonitis due to inhalation of food and vomit; J18.9 Pneumonia, unspecified organism; K65.9 Peritonitis, unspecified; E87.0 Hyperosmolality and hypernatremia; I13.0 Hypertensive heart and chronic kidney disease with heart failure and stage 1 through stage 4 chronic kidney disease, or unspecified chronic kidney disease; N17.9 Acute kidney failure, unspecified; Z68.1 Body mass index [BMI] 19.9 or less, adult; C16.9 Malignant neoplasm of stomach, unspecified; E46 Unspecified protein-calorie malnutrition; E88.A Wasting disease (syndrome) due to underlying condition; D69.6 Thrombocytopenia, unspecified; N18.32 Chronic kidney disease, stage 3b; I50.9 Heart failure, unspecified; D64.9 Anemia, unspecified; E03.9 Hypothyroidism, unspecified; E16.2 Hypoglycemia, unspecified; K66.8 Other specified disorders of peritoneum; Z93.2 Ileostomy status; Z90.3 Acquired absence of stomach [part of]; Z88.8 Allergy status to other drugs, medicaments and biological substances; Z63.5 Disruption of family by separation and divorce; Z90.89 Acquired absence of other organs; Z91.030 Bee allergy status; Z79.899 Other long term (current) drug therapy; Z98.890 Other specified postprocedural states
CPT/HCPCS: 00790; 36415; 36430; 36600; 70551; 70551-26; 71045; 71045-26; 74177; 74177-26; 80048; 80053; 81001; 82570; 82803; 82947; 83605; 83735; 83930; 83935; 84100; 84300; 84478; 84540; 85025; 85027; 86140; 86850; 86900; 86901; 86922; 87040; 92610-GN; 94002; 94003; 94640; 94668; 94761; 94762; 96361; 96365; 96375; 99140; 99285; 99285-25; A9270-GY; J0171; J0330; J0665; J0690; J1100; J1171; J1650; J1815; J1815-GY; J1885; J2060; J2250; J2270; J2371; J2405; J2543; J2704; J3010; J3475; J3480; J3490; J7030; J7040; J7060; J7120; J7620-GY; J7799; P9016; P9034; P9047; Q9967